=== PATIENT | male | born 1985 | race Two or more races ===

== ENCOUNTER 2024-10-10 10:53 | Emergency (ER) | payer MEDICAID, SELFPAY ==
[2024-10-10 10:55] VITALS: PULSE 98; RESP 20
[2024-10-10 10:58] VITALS: BMI 28.2
[2024-10-10 11:00] VITALS: BP 120/76; PULSE 78; RESP 18; TEMP 36.7; O2SAT 98
--- NOTE | 2024-10-10 11:44 | EDNOTE_ITS ---
ED General RME/HPI General Chief complaint: General Adult/Misc Complain Stated complaint: PAIN TO RIGHT FOOT Time Seen by Provider: 10/10/24 11:37 Arrival date/time: 10/10/24 10:53 CC: Right foot pain HPI worse since debridement beginning of the month. Patient states he was seen by his primary care provider 5 days ago but decided to come today even though the advice was on Thursday to come to the emergency room for reevaluation. Patient states he has been semicompliant with his insulin. Related Data Home Medications ?Medication ?Instructions ?Recorded ?Confirmed insulin syringe-needle U-100 0.5 09/22/24 09/22/24 mL 31 gauge x 5/16 (TRUEplus Insulin) lisinopril 5 mg tablet 5 mg PO DAILY 09/22/24 09/22/24 metformin 500 mg tablet 500 mg PO QAM 09/22/24 09/22/24 pravastatin 10 mg tablet 10 mg PO DAILY 09/22/24 09/22/24 Previous Rx's ?Medication ?Instructions ?Recorded flash glucose scanning reader #1 ea 09/24/24 (FreeStyle [place] 2 [place]) flash glucose sensor (FreeStyle #1 ea 09/24/24 Court[place] 2 Sensor kit) doxycycline hyclate 100 mg capsule 100 mg PO BID #10 caps 09/29/24 insulin glargine 100 unit/mL 65 unit (0.65 mL) SCi QDAY #10 mL 09/29/24 subcutaneous solution (Lantus U-100 Insulin) lisinopril 5 mg tablet 5 mg PO QDAY #30 tabs 09/29/24 doxycycline hyclate 100 mg capsule 100 mg PO BID #21 caps 10/10/24 Allergies Allergy/AdvReac Type Severity Reaction Status Date / Time No Known Allergies Allergy Unverified 09/25/24 14:09 Review of Systems Review of Systems Narrative Review of Systems: GEN: No fever, no chills, no weight loss EYES: No discharge, no visual changes, no pain HEENT: No ear pain, no congestion, no sore throat PULM: No shortness of breath, no cough, no congestion CV: No chest pain, no dyspnea on exertion, no palpitations GI: No nausea, no vomiting, no diarrhea, no pain, no constipation : No frequency, no urgency, no dysuria MUSC/SKEL: + joint pain, no back pain SKIN: No rash PSYCH: No hallucinations, no depression HEME/LYMPH: No easy bleeding or bruising tendencies NEURO: No weakness, no headache Past Medical History Past Medical History NEUROLOGIC: Negative Seizures CARDIAC: Positive Hypercholesterolemia and Hypertension; Negative Cardiac Disorders or Congestive Heart Failure RESPIRATORY: Negative Chronic Obstructive Pulmonary Disease (COPD) or Asthma GENITOURINARY: Negative Renal Disease ENDOCRINE: Positive Diabetes Mellitus Type 2; Negative Diabetes Mellitus Type 1 HEMATOLOGIC: Negative Sickle Cell Disease PSYCHO/SOCIAL: Positive Anxiety OTHER HISTORY: Positive Falls; Negative Hospitalization, Blood Transfusions, Blood Transfusion Reaction or Anesthesia Reactions Family History FAMILY HISTORY: Negative Family Cardiac Disorders Social History SMOKING STATUS: Never smoker ED Exam Narrative Physical exam: [General: Mild discomfort but not in any acute distress Head normocephalic HEENT: Within acceptable limits Neck is supple nontender Chest equal chest rise nontender to palpation Respiratory: Clear to auscultation no wheezes crackles or rubs CV: Rate rhythm is regular no murmurs rubs or clicks Abdomen is distended secondary to body habitus soft nontender no masses positive bowel sounds all 4 quadrants Back: No CVA tenderness no spinous process tenderness from cervical spine thoracic and lumbar spine Skin: Right foot, sole: Patient has 2 incisional moyer in the thick skin in the ball of the foot there is no open bleeding exudate was cleaned from the areas no surrounding erythema or edema. Dorsum of the foot is edematous not erythematous not warm to put cap refill in the digits is at 2 seconds. No erythema or streaking up the leg not warm to touch. Heel appears intact, no open ulcerations. Otherwise all other skin is intact no petechiae rash induration ulceration or crepitus Extremities: Moving all extremity against resistance cap refill less than 2 seconds neurosensory intact Neuro: Awake alert oriented x3 Glascow coma 15 no focal deficits] Course Course Course Narrative: Patient's case reviewed by Dr. Weiss feels there is no surgical intervention necessary the patient needs to continue with outpatient wound management. Discussed with the patient that he does not have a follow-up referral for wound management. Although the patient states he is waiting for referral . I talked to case management who will initiate follow-up with Dr. Rivera's office regarding approval for wound management. The patient will be discharged home is to follow-up with his primary care doctor and wound management. Review Dr Lares's note, the patient be discharged home on doxycycline, and does follow-up Quality Measures none Orders Category Date Time Status Dressing Care/Change NEEDED Care 10/10/24 15:31 Completed XR foot comp RT min 3V Stat Exams 10/10/24 11:49 Completed Blood Culture (Lab) Stat Lab 10/10/24 12:00 Received CBC Stat Lab 10/10/24 12:05 Completed CMP [Comprehensive Metabolic Panel] Stat Lab 10/10/24 12:05 Completed CRP [C-Reactive Protein] Stat Lab 10/10/24 12:05 Completed ESR [Sed Rate (ESR)] Stat Lab 10/10/24 12:05 Completed PT [Prothrombin Time with INR] Stat Lab 10/10/24 12:05 Completed PTT [Partial Thromboplastin Time] Stat Lab 10/10/24 12:05 Completed Insulin Regular Med 10/10/24 15:35 Discontinued 5 unit SC X1 ONE cefTRIAXone/D5w 1gm IV premix [Rocephin/D5w 1gm IV Med 10/10/24 13:20 Discontinued premix] 50 ml IV X1 Vital Signs Vital signs: Vital Signs Temperature 98.1 F 10/10/24 11:00 Pulse Rate 78 10/10/24 11:00 Respiratory Rate 18 10/10/24 11:00 Blood Pressure 120/76 10/10/24 11:00 Pulse Oximetry (%) 98 10/10/24 11:00 Oxygen Delivery Method Room Air 10/10/24 11:[address] [facility] Patient data External records reviewed:: [facility] previous records and EMS form Clinical information provided by:: patient and EMS Social determinants that could affect healthcare access:: none Patient has the following chronic illnesses:: Diabetes, right foot diabetic ulcer with surgical intervention and debridement. Hypertension hyperlipidemia How is presenting disease/condition affected by chronic disease/condition?: e xacerbated by Evaluation data The following diagnostics were reviewed and interpreted by me:: lab results, radiology exam(s) and EKG tracing(s) Lab and/or radiology exams considered but not ordered:: CBC shows no acute leukocytosis no significant anemia thrombocytopenia CMP shows glucose level of 353 no other significant electrolyte imbalances renal impairment transaminitis or T. bili elevation X-ray shows air in the foot. Interpretation Summary: Open foot wound status postsurgical debridement Medications Medications considered but not ordered:: None Medication administrations:: Medication Administration History Discontinued Medications Ceftriaxone Sodium/Dextrose (Rocephin/D5w 1gm Iv Premix) 50 mls @ 100 mls/hr IV X1 ONE Stop: 10/10/24 13:49 Last Infusion: 10/10/24 15:07 Dose: Infused Documented By: Admin: 10/10/24 14:00 Dose: 100 mls/hr Documented By: AMANDA Insulin Human Regular (Insulin Hum Regular 1 Unit/0.01 Ml (Per Unit)) 5 unit SC X1 ONE Stop: 10/10/24 15:36 Last Admin: 10/10/24 16:23 Dose: 5 unit Documented By: CARY Co-signed By: DO None Consultations Consultation(s) initiated? (list below): Yes Diagnosis Differential Diagnosis ED Complaint MDM: Foot cellulitis foot abscess gas gangrene of the foot Most likely diagnosis given after review of the tests above:: Open foot wound status post debridement. Admission Indicated Admission indicated?: not indicated Explain why admission is indicated or not indicated:: Stable for outpatient wound management follow-up Admission Request Was there a request for admission?: No Disposition Plan Disposition Plan: Discharge Discharge Attestation Discharge Attestation: The patient and all family members were given an opportunity to ask questions and understood the discharge instructions. Discharge instructions specifically effects, indications for sooner follow up or return to the emergency department, and the expected course of current diagnosis. Patient condition: Stable Medical Decision Making Differential Diagnosis Differential Diagnosis: Foot cellulitis foot abscess gas gangrene of the foot Lab Data 10/10/24 12:05 10/10/24 12:05 Labs: Lab Results 10/10/24 Range/Units 12:05 WBC 6.9 (3.8-10.6) Thou/mm3 RBC 4.86 (4.50-5.90) Miln/mm3 Hgb 13.7 (13.5-16.0) g/dL Hct 40.2 L (41.0-53.0) % MCV 83 (80-100) fL MCH 28.2 (25.0-35.0) pg MCHC 34.1 (31.0-37.0) g/dl RDW Std Deviation 37.4 (35.1-43.9) fL Plt Count 419 (140-440) Thou/mm3 Neut % (Auto) 58 (37-80) % Lymph % (Auto) 33 (10-50) % [place] % (Auto) 6 (0-12) % Eos % (Auto) 3 (0-10) % Baso % (Auto) 0 (0-2.5) % Neut # (Auto) 4.0 (1.8-7.7) Thou/mm3 Lymph # (Auto) 2.3 (1.0-4.8) Thou/mm3 [place] # (Auto) 0.4 (0.0-0.8) Thou/mm3 Eos # (Auto) 0.2 (0.0-0.5) Thou/mm3 Baso # (Auto) 0.0 (0.0-0.2) Thou/mm3 Immature Gran # (Auto) 0.01 H (0.00-0.00) Thou/mm3 Absolute Nucleated RBC 0.00 (0.00-0.00) Thou/mm3 Immature Gran % 0 (0-0) % Nucleated RBC % 0 (0) /100 WBC ESR 105 H (0-15) mm/hr PT 11.2 (9.0-12.2) Seconds INR 1.0 (0.9-1.3) APTT 26.8 (22.0-36.0) Seconds Sodium 132 L (136-145) mMol/L Potassium 4.0 (3.4-5.1) mMol/L Chloride 97 L (98-107) mMol/L Carbon Dioxide 29.5 (20.0-31.0) mMol/L Anion Gap 6 L (7-16) BUN 18 (9-23) mg/dL Creatinine 0.7 (0.6-1.3) mg/dL Estim Creat Clear Calc 180.6 (>60) mL/min eGFR > 60 (60 - ) See Note BUN/Creatinine Ratio 26 H (12-20) Ratio Glucose 353 H (74-106) mg/dL Calculated Osmolality 280 (275-295) Calcium 9.3 (8.3-10.6) mg/dL Corrected Calcium 9.3 (8.5-10.1) mg/dL Total Bilirubin 0.6 (0.3-1.2) mg/dL AST < 8 (0-34) U/L ALT < 7 L (10-49) U/L Alkaline Phosphatase 103 (46-116) U/L C-Reactive Prot, Quant 1.0 H (0.0-0.9) mg/dL Total Protein 7.9 (5.7-8.2) gm/dL Albumin 4.2 (3.5-5.0) gm/dL Globulin 3.7 H (2.3-3.5) gm/dL Albumin/Globulin Ratio 1.1 L (1.2-2.2) Discharge Plan Plan Patient Disposition: HOME (Self Care) Patient condition on transfer: Stable Prescriptions/Referrals Prescriptions/Med Rec: New doxycycline hyclate 100 mg capsule 100 mg PO BID Qty: 21 0RF No Action metformin 500 mg tablet 500 mg PO QAM Patient Comments: TAKE ONE TABLET BY MOUTH THREE TIMES DAILY WITH MEALS pravastatin 10 mg tablet 10 mg PO DAILY Patient Comments: TAKE ONE TABLET BY MOUTH AT BEDTIME lisinopril 5 mg tablet 5 mg PO DAILY Patient Comments: TAKE ONE TABLET BY MOUTH DAILY (DME) insulin syringe-needle U-100 [TRUEplus Insulin] 0.5 mL 31 gauge x 5/16 syringe Patient Comments: USE 1 SYRINGE UP TO FOUR TIMES DAILY NEEDED FOR GLUCOSE MANAGEMENT (DME) FreeStyle [place] 2 [place] Misc See Rx Instructions .Route Qty: 1 0RF Rx Instructions: As directed (DME) FreeStyle [place] 2 Sensor Kit See Rx Instructions .Route Qty: 1 0RF Rx Instructions: As directed doxycycline hyclate 100 mg capsule 100 mg PO BID Qty: 10 0RF insulin glargine [Lantus U-100 Insulin] 100 unit/mL Solution 65 unit SCi QDAY Qty: 10 4RF lisinopril 5 mg tablet 5 mg PO QDAY Qty: 30 1RF Referrals: Dottie Styles FNP [Primary Care Provider] - In 1 week Problem List Clinical Impression: Open wound of right foot Patient/Caregiver Discharge Instructions Education Materials: What Are Pressure Injuries of the Foot Additional Instructions: Take the medications as prescribed call Dr. Rivera's office for getting an appointment time for wound management. If there is a worsening of symptoms include fever redness in the foot or ankle return the emergency room for reevaluation. Print Language: Polish Stand Alone Forms: Wendy Award Info., Work/School Release, Patient Portal Info Letter Attestation Attestation The patient was seen by the midlevel practitioner. I, the co-signing physician, was present during the entire ER visit. While I did not physically examine the patient, I was available for consultation as needed.
--- NOTE | 2024-10-10 11:49 | XR_ITS ---
Examination: Foot, right, 3 views Technique: AP, oblique, lateral views foot, 3 views Date and time of exam: October 10, 2024 1228 hours INDICATIONS: Nonhealing foot ulcer this week, diabetic FINDINGS: Soft tissue infection centered about the fourth metatarsophalangeal joint with soft tissue swelling and air densities Destruction involving the distal fourth metatarsal as well as the middle phalanx fourth digit and base of the proximal phalanx fourth digit No fracture IMPRESSION: Osteomyelitis distal fourth metatarsal, proximal and middle phalanges fourth digits Consider MRI foot without contrast follow-up
[2024-10-10 12:45] LABS: Basophils % (Auto) 0 % (0-2.5); Eosinophils # (Auto) 0.2 Thou/mm3 (0.0-0.5); Eosinophils % (Auto) 3 % (0-10); Hematocrit 40.2 % (41.0-53.0); Hemoglobin 13.7 g/dL (13.5-16.0); Immature Granulocytes % (Auto) 0 % (0-0); Immature Granulocytes Auto 0.01 Thou/mm3 (0.00-0.00); Lymphocytes # (Auto) 2.3 Thou/mm3 (1.0-4.8); Lymphocytes % (Auto) 33 % (10-50); Mean Corpuscular HGB Conc 34.1 g/dl (31.0-37.0); Mean Corpuscular Hemoglobin 28.2 pg (25.0-35.0); Mean Corpuscular Volume 83 fL (80-100); Monocytes # (Auto) 0.4 Thou/mm3 (0.0-0.8); Monocytes % (Auto) 6 % (0-12); Neutrophils % (Auto) 58 % (37-80); Nucleated Red Blood Cell % 0 /100 WBC (0); Platelet Count 419 Thou/mm3 (140-440); RDW Standard Deviation 37.4 fL (35.1-43.9); Red Blood Count 4.86 Miln/mm3 (4.50-5.90); White Blood Count 6.9 Thou/mm3 (3.8-10.6)
[2024-10-10 12:56] LABS: Sed Rate (ESR) 105 mm/hr (0-15)
[2024-10-10 13:02] LABS: Partial Thromboplastin Time 26.8 Seconds (22.0-36.0); Prothrombin Time 11.2 Seconds (9.0-12.2)
[2024-10-10 13:23] LABS: Alanine Aminotransferase < 7 U/L (10-49); Albumin, Serum 4.2 gm/dL (3.5-5.0); Albumin/Globulin Ratio 1.1 (1.2-2.2); Alkaline Phosphatase 103 U/L (46-116); Anion Gap 6 (7-16); Aspartate Amino Transferase < 8 U/L (0-34); BUN/Creatinine Ratio 26 Ratio (12-20); Bilirubin,Total 0.6 mg/dL (0.3-1.2); Blood Urea Nitrogen 18 mg/dL (9-23); Calcium 9.3 mg/dL (8.3-10.6); Calcium (Corrected) 9.3 mg/dL (8.5-10.1); Carbon Dioxide 29.5 mMol/L (20.0-31.0); Chloride 97 mMol/L (98-107); Creatinine (Component) 0.7 mg/dL (0.6-1.3); Estimated Creatinine Clearance 180.6 mL/min (>60); Globulin 3.7 gm/dL (2.3-3.5); Glucose 353 mg/dL (74-106); Osmolality,Calculated 280 (275-295); Sodium 132 mMol/L (136-145); Total Protein 7.9 gm/dL (5.7-8.2); eGFR > 60 See Note
[2024-10-10] MEDS: cefTRIAXone/D5w 1gm IV premix 50 ML IV (14:00)
--- NOTE | 2024-10-10 15:36 | PC.CC ---
[facility] was consulted regarding a referral to the wound clinic for the patient. ASW made face to face contact with the patient and confirmed information on demographics. ASW sent referral to the wound clinic. They will be calling the patient to schedule the appointment to the clinic.
[2024-10-10] MEDS: INSULIN HUM REGULAR 1 UNIT/0.01 ML (PER UNIT) 5 UNIT SC (16:23)
== END 2024-10-10 16:55 | disposition home or self-care (01) ==
PROVIDERS: Registered Nurse General Practice; Emergency Provider Emergency Medicine; PCP Nurse Practitioner Family
DX: E11.621 Type 2 diabetes mellitus with foot ulcer (principal); L97.519 Non-pressure chronic ulcer of other part of right foot with unspecified severity; Z79.84 Long term (current) use of oral hypoglycemic drugs; Z79.4 Long term (current) use of insulin
CPT/HCPCS: 36415; 73630; 80053; 85025; 85610; 85652; 85730; 86140; 87040; 96365; 96372; 99284; J0696; J1815

== ENCOUNTER 2024-10-16 14:51 | Emergency (ER) | payer MEDICAID, SELFPAY ==
[2024-10-16 15:32] VITALS: BP 105/74; PULSE 115; RESP 19; TEMP 37.4; O2SAT 99; BMI 28.2
--- NOTE | 2024-10-16 16:24 | EDNOTE_ITS ---
ED General RME/HPI General Chief complaint: Ankle/Foot Injury Stated complaint: R FOOT INFECTION Time Seen by Provider: 10/16/24 16:23 Arrival date/time: 10/16/24 14:51 CC: Right foot pain HPI the patient fell on it last night now has some pain and bleeding. Patient is known to me for the last visit patient has osteomyelitis chronic wound and ulcers on the right foot and has inform me that he actually has follow-up in 3 days for his chronic foot issues. The patient is known diabetic with poor glycemic control. Patient currently has no active bleeding to the foot. Localized pain is 3-4 on a 10 scale. Patient is well-known to me from a prior visit he is already on antibiotics for an open wound to the bottom of the foot with air in the foot, this was discussed at length and we made outpatient arrangements for him for follow-up appointment as stated above. Related Data Home Medications ?Medication ?Instructions ?Recorded ?Confirmed insulin syringe-needle U-100 0.5 09/22/24 09/22/24 mL 31 gauge x 5/16 (TRUEplus Insulin) lisinopril 5 mg tablet 5 mg PO DAILY 09/22/24 09/22/24 metformin 500 mg tablet 500 mg PO QAM 09/22/24 09/22/24 pravastatin 10 mg tablet 10 mg PO DAILY 09/22/24 09/22/24 Previous Rx's ?Medication ?Instructions ?Recorded flash glucose scanning reader #1 ea 09/24/24 (FreeStyle [place]ney 2 [place]) flash glucose sensor (FreeStyle #1 ea 09/24/24 Courtney 2 Sensor kit) doxycycline hyclate 100 mg capsule 100 mg PO BID #10 caps 09/29/24 insulin glargine 100 unit/mL 65 unit (0.65 mL) SCi QDAY #10 mL 09/29/24 subcutaneous solution (Lantus U-100 Insulin) lisinopril 5 mg tablet 5 mg PO QDAY #30 tabs 09/29/24 doxycycline hyclate 100 mg capsule 100 mg PO BID #21 caps 10/10/24 Allergies Allergy/AdvReac Type Severity Reaction Status Date / Time No Known Allergies Allergy Unverified 10/16/24 14:52 Review of Systems Review of Systems Narrative Review of Systems: GEN: No fever, no chills, no weight loss EYES: No discharge, no visual changes, no pain HEENT: No ear pain, no congestion, no sore throat PULM: No shortness of breath, no cough, no congestion CV: No chest pain, no dyspnea on exertion, no palpitations GI: No nausea, no vomiting, no diarrhea, no pain, no constipation : No frequency, no urgency, no dysuria MUSC/SKEL: No joint pain, no back pain, + foot pain SKIN: No rash PSYCH: No hallucinations, no depression HEME/LYMPH: No easy bleeding or bruising tendencies NEURO: No weakness, no headache ED Exam Narrative Physical exam: [General: acute distress Head normocephalic HEENT: Within acceptable limits Neck is supple nontender Chest equal chest rise nontender to palpation Respiratory: Clear to auscultation no wheezes crackles or rubs CV: Rate rhythm is regular no murmurs rubs or clicks Abdomen is distended secondary to body habitus soft nontender no masses positive bowel sounds all 4 quadrants Back: No CVA tenderness no spinous process tenderness from cervical spine thoracic and lumbar spine Skin: Open ulcerations to the right foot chronic in nature. Intact no petechiae rash induration ulceration or crepitus Extremities: Decreased range of motion of the right foot secondary to localized pain. Moving all other extremities against resistance cap refill less than 2 seconds neurosensory intact Neuro: Awake alert oriented x3 Glascow coma 15 no focal deficits] Course Quality Measures none Orders Category Date Time Status XR foot comp RT min 3V Stat Exams 10/16/24 16:25 Completed Vital Signs Vital signs: Vital Signs Temperature 99.3 F 10/16/24 15:32 Pulse Rate 115 H 10/16/24 15:32 Respiratory Rate 19 10/16/24 15:32 Blood Pressure 105/74 10/16/24 15:32 Pulse Oximetry (%) 99 10/16/24 15:32 Oxygen Delivery Method Room Air 10/16/24 15:32 [facility] Patient data External records reviewed:: [facility] previous records Clinical information provided by:: patient Social determinants that could affect healthcare access:: none Patient has the following chronic illnesses:: Diabetes hypertension chronic foot ulcer How is presenting disease/condition affected by chronic disease/condition?: uneffected by Evaluation data The following diagnostics were reviewed and interpreted by me:: radiology exam(s) Lab and/or radiology exams considered but not ordered:: X-ray of the foot is interpreted by me read by radiology shows no acute finding chronic osteomyelitis no new fractures. Interpretation Summary: Chronic osteoarthritis Medications Medications considered but not ordered:: None Medication administrations:: None Consultations Consultation(s) initiated? (list below): No Diagnosis Differential Diagnosis ED Complaint MDM: New foot fracture, sprain or strain Most likely diagnosis given after review of the tests above:: Foot pain chronic osteomyelitis Admission Indicated Admission indicated?: not indicated Explain why admission is indicated or not indicated:: Stable for outpatient follow-up Admission Request Was there a request for admission?: No Disposition Plan Disposition Plan: Discharge Discharge Attestation Discharge Attestation: The patient and all family members were given an opportunity to ask questions and understood the discharge instructions. Discharge instructions specifically effects, indications for sooner follow up or return to the emergency department, and the expected course of current diagnosis. Patient condition: Stable Medical Decision Making Differential Diagnosis Differential Diagnosis: New foot fracture, sprain or strain Discharge Plan Plan Patient Disposition: HOME (Self Care) Patient condition on transfer: Stable Prescriptions/Referrals Prescriptions/Med Rec: No Action metformin 500 mg tablet 500 mg PO QAM Patient Comments: TAKE ONE TABLET BY MOUTH THREE TIMES DAILY WITH MEALS pravastatin 10 mg tablet 10 mg PO DAILY Patient Comments: TAKE ONE TABLET BY MOUTH AT BEDTIME lisinopril 5 mg tablet 5 mg PO DAILY Patient Comments: TAKE ONE TABLET BY MOUTH DAILY (DME) insulin syringe-needle U-100 [TRUEplus Insulin] 0.5 mL 31 gauge x 5/16 syringe Patient Comments: USE 1 SYRINGE UP TO FOUR TIMES DAILY NEEDED FOR GLUCOSE MANAGEMENT (DME) FreeStyle [place] 2 [place] Misc See Rx Instructions .Route Qty: 1 0RF Rx Instructions: As directed (DME) FreeStyle [place] 2 Sensor Kit See Rx Instructions .Route Qty: 1 0RF Rx Instructions: As directed doxycycline hyclate 100 mg capsule 100 mg PO BID Qty: 21 0RF doxycycline hyclate 100 mg capsule 100 mg PO BID Qty: 10 0RF insulin glargine [Lantus U-100 Insulin] 100 unit/mL Solution 65 unit SCi QDAY Qty: 10 4RF lisinopril 5 mg tablet 5 mg PO QDAY Qty: 30 1RF Referrals: Domingo Rivera MD [Primary Care Provider] - In 1 week Problem List Clinical Impression: Foot pain, Foot osteomyelitis, right Patient/Caregiver Discharge Instructions Other Activity Instructions:: Continue on the antibiotics make sure you follow- up with your appointment on Thursday for your foot if there is a worsening of symptoms return the emergency room for reevaluation. Education Materials: Osteomyelitis Dc, Self-Care for Strains and Sprains Print Language: [place] Stand Alone Forms: Wendy Award Info., Patient Portal Info Letter, Work/School Release PA/BIRD KEEPER Supervising Physician PA/BIRD KEEPER Supervising Physician: Don Ferguson ENP
--- NOTE | 2024-10-16 16:25 | XR_ITS ---
Examination: Foot, right, 3 views Technique: AP, oblique, lateral views foot, 3 views Date and time of exam: October 16, 2024 1635 hrs. Indications: Redness swelling and pain involving the foot this week, diabetic Findings: Soft tissue infection surrounding the fourth and fifth digits and distal metatarsals Cortical bone destruction distal fifth and fourth metatarsals No fracture No opaque foreign body Impression: Soft tissue infection centered about the fourth and fifth digits Osteomyelitis distal fourth and fifth metatarsals, consider repeat MRI foot follow-up
--- NOTE | 2024-10-16 18:58 | PC.NURSE ---
Report recieced from day RN,
[2024-10-16 20:52] VITALS: BP 105/74; PULSE 99; RESP 18; TEMP 37.3; O2SAT 99
== END 2024-10-16 19:40 | disposition home or self-care (01) ==
PROVIDERS: Emergency Provider Emergency Medicine; PCP Family Medicine
DX: M86.8X7 Other osteomyelitis, ankle and foot (principal)
CPT/HCPCS: 73630; 99283

== ENCOUNTER → 2024-10-19 | Outpatient (CLI) | payer MEDICAID, SELFPAY | END | disposition home or self-care (01) | PROVIDERS: PCP Nurse Practitioner Family; Referring Provider Nurse Practitioner Family; Visit Provider Student in an Organized Health Care Education/Training Program | DX: E11.621 Type 2 diabetes mellitus with foot ulcer (principal); L97.418 Non-pressure chronic ulcer of right heel and midfoot with other specified severity; L97.415 Non-pressure chronic ulcer of right heel and midfoot with muscle involvement without evidence of necrosis; M19.071 Primary osteoarthritis, right ankle and foot; J45.909 Unspecified asthma, uncomplicated; E11.40 Type 2 diabetes mellitus with diabetic neuropathy, unspecified; Z79.4 Long term (current) use of insulin; Z79.84 Long term (current) use of oral hypoglycemic drugs | CPT/HCPCS: 97597; 99213; A9270; G0463 ==

== ENCOUNTER → 2024-10-26 | Outpatient (CLI) | payer MEDICAID, SELFPAY | END | disposition home or self-care (01) | LOC: SWHD 09:43 | PROVIDERS: PCP Nurse Practitioner Family; Referring Provider Nurse Practitioner Family; Visit Provider Surgery | DX: E11.621 Type 2 diabetes mellitus with foot ulcer (principal); L97.411 Non-pressure chronic ulcer of right heel and midfoot limited to breakdown of skin; L97.412 Non-pressure chronic ulcer of right heel and midfoot with fat layer exposed; M19.071 Primary osteoarthritis, right ankle and foot; J45.909 Unspecified asthma, uncomplicated; E11.40 Type 2 diabetes mellitus with diabetic neuropathy, unspecified; Z79.4 Long term (current) use of insulin; Z79.84 Long term (current) use of oral hypoglycemic drugs | CPT/HCPCS: 11042; 97597; A9270 ==

== ENCOUNTER → 2024-10-28 | Outpatient (CLI) | payer MEDICAID, SELFPAY | END | disposition home or self-care (01) | LOC: SWHD 14:30 | PROVIDERS: PCP Nurse Practitioner Family; Referring Provider Nurse Practitioner Family; Visit Provider Surgery | DX: L97.411 Non-pressure chronic ulcer of right heel and midfoot limited to breakdown of skin (principal); L97.412 Non-pressure chronic ulcer of right heel and midfoot with fat layer exposed; S91.301A Unspecified open wound, right foot, initial encounter; X58.XXXA Exposure to other specified factors, initial encounter; L02.611 Cutaneous abscess of right foot; M19.071 Primary osteoarthritis, right ankle and foot; J45.909 Unspecified asthma, uncomplicated; E11.40 Type 2 diabetes mellitus with diabetic neuropathy, unspecified; Z79.4 Long term (current) use of insulin; Z79.84 Long term (current) use of oral hypoglycemic drugs | CPT/HCPCS: 10060; A9270 ==

== ENCOUNTER → 2024-11-04 | Outpatient (CLI) | payer MEDICAID, SELFPAY | END | disposition home or self-care (01) | PROVIDERS: PCP Nurse Practitioner Family; Referring Provider Nurse Practitioner Family; Visit Provider Surgery | DX: L97.412 Non-pressure chronic ulcer of right heel and midfoot with fat layer exposed (principal); S91.301A Unspecified open wound, right foot, initial encounter; X58.XXXA Exposure to other specified factors, initial encounter; L02.611 Cutaneous abscess of right foot; M19.071 Primary osteoarthritis, right ankle and foot; J45.909 Unspecified asthma, uncomplicated; E11.40 Type 2 diabetes mellitus with diabetic neuropathy, unspecified; Z79.4 Long term (current) use of insulin; Z79.84 Long term (current) use of oral hypoglycemic drugs | CPT/HCPCS: 11042; A9270 ==

== ENCOUNTER → 2024-11-09 | Outpatient (CLI) | payer MEDICAID, SELFPAY | END | disposition home or self-care (01) | LOC: SWHD 09:14 | PROVIDERS: PCP Nurse Practitioner Family; Referring Provider Nurse Practitioner Family; Visit Provider Student in an Organized Health Care Education/Training Program | DX: S91.301A Unspecified open wound, right foot, initial encounter (principal); X58.XXXA Exposure to other specified factors, initial encounter; L02.611 Cutaneous abscess of right foot; M19.071 Primary osteoarthritis, right ankle and foot; J45.909 Unspecified asthma, uncomplicated; E11.40 Type 2 diabetes mellitus with diabetic neuropathy, unspecified; Z79.4 Long term (current) use of insulin; Z79.84 Long term (current) use of oral hypoglycemic drugs | CPT/HCPCS: 97597; 17250; A9270 ==

== ENCOUNTER → 2024-11-24 | Outpatient (CLI) | payer MEDICAID, SELFPAY | END | disposition home or self-care (01) | LOC: SWHD 14:47 | PROVIDERS: PCP Nurse Practitioner Family; Referring Provider Nurse Practitioner Family; Visit Provider Student in an Organized Health Care Education/Training Program | DX: S91.301A Unspecified open wound, right foot, initial encounter (principal); X58.XXXA Exposure to other specified factors, initial encounter; L02.611 Cutaneous abscess of right foot; L97.422 Non-pressure chronic ulcer of left heel and midfoot with fat layer exposed; L97.412 Non-pressure chronic ulcer of right heel and midfoot with fat layer exposed; L97.512 Non-pressure chronic ulcer of other part of right foot with fat layer exposed; M19.071 Primary osteoarthritis, right ankle and foot; J45.909 Unspecified asthma, uncomplicated; E11.40 Type 2 diabetes mellitus with diabetic neuropathy, unspecified; Z79.4 Long term (current) use of insulin; Z79.84 Long term (current) use of oral hypoglycemic drugs | CPT/HCPCS: 99214; A9270; G0463 ==

== ENCOUNTER → 2024-12-15 | Outpatient (CLI) | payer MEDICAID, SELFPAY | END | disposition home or self-care (01) | LOC: SWHD 14:47 | PROVIDERS: PCP Nurse Practitioner Family; Referring Provider Nurse Practitioner Family; Visit Provider Student in an Organized Health Care Education/Training Program | DX: E11.621 Type 2 diabetes mellitus with foot ulcer (principal); S91.301A Unspecified open wound, right foot, initial encounter; X58.XXXA Exposure to other specified factors, initial encounter; L02.611 Cutaneous abscess of right foot; L97.421 Non-pressure chronic ulcer of left heel and midfoot limited to breakdown of skin; L97.412 Non-pressure chronic ulcer of right heel and midfoot with fat layer exposed; L97.512 Non-pressure chronic ulcer of other part of right foot with fat layer exposed; M19.071 Primary osteoarthritis, right ankle and foot; J45.909 Unspecified asthma, uncomplicated; E11.40 Type 2 diabetes mellitus with diabetic neuropathy, unspecified; Z79.4 Long term (current) use of insulin; Z79.84 Long term (current) use of oral hypoglycemic drugs | CPT/HCPCS: 97597; A9270 ==

== ENCOUNTER → 2024-12-22 | Outpatient (CLI) | payer MEDICAID, SELFPAY | END | disposition home or self-care (01) | PROVIDERS: PCP Nurse Practitioner Family; Referring Provider Nurse Practitioner Family; Visit Provider Student in an Organized Health Care Education/Training Program | DX: E11.621 Type 2 diabetes mellitus with foot ulcer (principal); S91.301A Unspecified open wound, right foot, initial encounter; X58.XXXA Exposure to other specified factors, initial encounter; L02.611 Cutaneous abscess of right foot; L97.412 Non-pressure chronic ulcer of right heel and midfoot with fat layer exposed; L97.512 Non-pressure chronic ulcer of other part of right foot with fat layer exposed; M19.071 Primary osteoarthritis, right ankle and foot; J45.909 Unspecified asthma, uncomplicated; E11.40 Type 2 diabetes mellitus with diabetic neuropathy, unspecified; Z79.4 Long term (current) use of insulin; Z79.84 Long term (current) use of oral hypoglycemic drugs | CPT/HCPCS: 97597 ==

== ENCOUNTER → 2025-02-27 | Outpatient (CLI) | payer MEDICAID, SELFPAY | END | disposition home or self-care (01) | LOC: SWHD 08:24 | PROVIDERS: Visit Provider Student in an Organized Health Care Education/Training Program | DX: E11.621 Type 2 diabetes mellitus with foot ulcer (principal); L97.412 Non-pressure chronic ulcer of right heel and midfoot with fat layer exposed; E11.40 Type 2 diabetes mellitus with diabetic neuropathy, unspecified; Z79.4 Long term (current) use of insulin; Z79.84 Long term (current) use of oral hypoglycemic drugs; J45.909 Unspecified asthma, uncomplicated; I10 Essential (primary) hypertension; F41.9 Anxiety disorder, unspecified | CPT/HCPCS: 97597; 11042; 99213; A9270; G0463 ==

== ENCOUNTER → 2025-03-06 | Outpatient (CLI) | payer MEDICAID, SELFPAY | END | disposition home or self-care (01) | LOC: SWHD 09:19 | PROVIDERS: PCP Family Medicine; Referring Provider Family Medicine; Visit Provider Student in an Organized Health Care Education/Training Program | DX: E11.621 Type 2 diabetes mellitus with foot ulcer (principal); L97.412 Non-pressure chronic ulcer of right heel and midfoot with fat layer exposed; E11.40 Type 2 diabetes mellitus with diabetic neuropathy, unspecified; Z79.4 Long term (current) use of insulin; Z79.84 Long term (current) use of oral hypoglycemic drugs; J45.909 Unspecified asthma, uncomplicated; I10 Essential (primary) hypertension; F41.9 Anxiety disorder, unspecified | CPT/HCPCS: 11042; A9270 ==

== ENCOUNTER → 2025-03-13 | Outpatient (CLI) | payer MEDICAID, SELFPAY | END | disposition home or self-care (01) | LOC: SWHD 10:13 | PROVIDERS: PCP Family Medicine; Referring Provider Family Medicine; Visit Provider Surgery | DX: E11.621 Type 2 diabetes mellitus with foot ulcer (principal); L97.412 Non-pressure chronic ulcer of right heel and midfoot with fat layer exposed; E11.40 Type 2 diabetes mellitus with diabetic neuropathy, unspecified; Z79.4 Long term (current) use of insulin; Z79.84 Long term (current) use of oral hypoglycemic drugs; J45.909 Unspecified asthma, uncomplicated; I10 Essential (primary) hypertension; F41.9 Anxiety disorder, unspecified | CPT/HCPCS: 11042; A9270 ==

== ENCOUNTER → 2025-03-21 | Outpatient (CLI) | payer MEDICAID, SELFPAY | END | disposition home or self-care (01) | LOC: SWHD 10:22 | PROVIDERS: PCP Family Medicine; Referring Provider Family Medicine; Visit Provider Student in an Organized Health Care Education/Training Program | DX: E11.621 Type 2 diabetes mellitus with foot ulcer (principal); L97.412 Non-pressure chronic ulcer of right heel and midfoot with fat layer exposed; E11.40 Type 2 diabetes mellitus with diabetic neuropathy, unspecified; Z79.4 Long term (current) use of insulin; Z79.84 Long term (current) use of oral hypoglycemic drugs; J45.909 Unspecified asthma, uncomplicated; I10 Essential (primary) hypertension; F41.9 Anxiety disorder, unspecified | CPT/HCPCS: 11042; A9270 ==

== ENCOUNTER → 2025-04-04 | Outpatient (CLI) | payer MEDICAID, SELFPAY | END | disposition home or self-care (01) | LOC: SWHD 12:55 | PROVIDERS: PCP Family Medicine; Referring Provider Family Medicine; Visit Provider Student in an Organized Health Care Education/Training Program | DX: E11.621 Type 2 diabetes mellitus with foot ulcer (principal); L97.412 Non-pressure chronic ulcer of right heel and midfoot with fat layer exposed; E11.40 Type 2 diabetes mellitus with diabetic neuropathy, unspecified; Z79.4 Long term (current) use of insulin; Z79.84 Long term (current) use of oral hypoglycemic drugs; J45.909 Unspecified asthma, uncomplicated; I10 Essential (primary) hypertension; F41.9 Anxiety disorder, unspecified | CPT/HCPCS: 11042; A9270 ==

== ENCOUNTER → 2025-04-11 | Outpatient (CLI) | payer MEDICAID, SELFPAY | END | disposition home or self-care (01) | LOC: SWHD 12:54 | PROVIDERS: PCP Family Medicine; Referring Provider Family Medicine; Visit Provider Student in an Organized Health Care Education/Training Program | DX: E11.621 Type 2 diabetes mellitus with foot ulcer (principal); L97.411 Non-pressure chronic ulcer of right heel and midfoot limited to breakdown of skin; Z79.4 Long term (current) use of insulin; Z79.84 Long term (current) use of oral hypoglycemic drugs; J45.909 Unspecified asthma, uncomplicated; I10 Essential (primary) hypertension; F41.9 Anxiety disorder, unspecified | CPT/HCPCS: 97597; A9270 ==

== ENCOUNTER → 2025-04-13 | Outpatient (CLI) | payer MEDICAID, SELFPAY | END | disposition home or self-care (01) | LOC: SWHD 09:06 | PROVIDERS: PCP Family Medicine; Referring Provider Family Medicine; Visit Provider Student in an Organized Health Care Education/Training Program | DX: E11.621 Type 2 diabetes mellitus with foot ulcer (principal); L97.412 Non-pressure chronic ulcer of right heel and midfoot with fat layer exposed; E11.40 Type 2 diabetes mellitus with diabetic neuropathy, unspecified; Z79.4 Long term (current) use of insulin; Z79.84 Long term (current) use of oral hypoglycemic drugs; J45.909 Unspecified asthma, uncomplicated; I10 Essential (primary) hypertension; F41.9 Anxiety disorder, unspecified | CPT/HCPCS: 11042; A9270 ==

== ENCOUNTER → 2025-04-18 | Outpatient (CLI) | payer MEDICAID, SELFPAY | END | disposition home or self-care (01) | LOC: SWHD 13:40 | PROVIDERS: PCP Family Medicine; Referring Provider Family Medicine; Visit Provider Student in an Organized Health Care Education/Training Program | DX: E11.621 Type 2 diabetes mellitus with foot ulcer (principal); L97.411 Non-pressure chronic ulcer of right heel and midfoot limited to breakdown of skin; Z79.84 Long term (current) use of oral hypoglycemic drugs; Z79.4 Long term (current) use of insulin; J45.909 Unspecified asthma, uncomplicated; I10 Essential (primary) hypertension; F41.9 Anxiety disorder, unspecified | CPT/HCPCS: 97597; A9270 ==

== ENCOUNTER → 2025-05-02 | Outpatient (CLI) | payer MEDICAID, SELFPAY | END | disposition home or self-care (01) | LOC: SWHD 14:36 | PROVIDERS: PCP Family Medicine; Referring Provider Family Medicine; Visit Provider Student in an Organized Health Care Education/Training Program | DX: E11.621 Type 2 diabetes mellitus with foot ulcer (principal); L97.411 Non-pressure chronic ulcer of right heel and midfoot limited to breakdown of skin; E11.40 Type 2 diabetes mellitus with diabetic neuropathy, unspecified; Z79.84 Long term (current) use of oral hypoglycemic drugs; Z79.4 Long term (current) use of insulin; J45.909 Unspecified asthma, uncomplicated; I10 Essential (primary) hypertension; F41.9 Anxiety disorder, unspecified | CPT/HCPCS: 99213; G0463 ==

== ENCOUNTER → 2025-05-16 | Outpatient (CLI) | payer MEDICAID, SELFPAY | END | disposition home or self-care (01) | LOC: SWHD 11:10 | PROVIDERS: PCP Family Medicine; Referring Provider Family Medicine; Visit Provider Student in an Organized Health Care Education/Training Program | DX: E11.621 Type 2 diabetes mellitus with foot ulcer (principal); L97.411 Non-pressure chronic ulcer of right heel and midfoot limited to breakdown of skin; Z79.84 Long term (current) use of oral hypoglycemic drugs; Z79.4 Long term (current) use of insulin; J45.909 Unspecified asthma, uncomplicated; I10 Essential (primary) hypertension; F41.9 Anxiety disorder, unspecified | CPT/HCPCS: 99212; G0463 ==

== ENCOUNTER → 2025-06-13 | Outpatient (CLI) | payer MEDICAID, SELFPAY | END | disposition home or self-care (01) | LOC: SWHD 12:50 | PROVIDERS: PCP Family Medicine; Referring Provider Family Medicine; Visit Provider Student in an Organized Health Care Education/Training Program | DX: E11.621 Type 2 diabetes mellitus with foot ulcer (principal); L97.412 Non-pressure chronic ulcer of right heel and midfoot with fat layer exposed; Z79.4 Long term (current) use of insulin; J45.909 Unspecified asthma, uncomplicated; F41.9 Anxiety disorder, unspecified; Z79.84 Long term (current) use of oral hypoglycemic drugs | CPT/HCPCS: 97597; A9270 ==

== ENCOUNTER → 2025-07-25 | Outpatient (CLI) | payer MEDICAID, SELFPAY | END | disposition home or self-care (01) | PROVIDERS: PCP Family Medicine; Referring Provider Family Medicine; Visit Provider Student in an Organized Health Care Education/Training Program | DX: E11.621 Type 2 diabetes mellitus with foot ulcer (principal); L97.412 Non-pressure chronic ulcer of right heel and midfoot with fat layer exposed; Z79.4 Long term (current) use of insulin; J45.909 Unspecified asthma, uncomplicated; Z79.84 Long term (current) use of oral hypoglycemic drugs; F41.9 Anxiety disorder, unspecified | CPT/HCPCS: 97597; A9270 ==

== ENCOUNTER → 2025-08-17 | Outpatient (CLI) | payer MEDICAID, SELFPAY | END | disposition home or self-care (01) | LOC: SWHD 09:26 | PROVIDERS: PCP Family Medicine; Referring Provider Family Medicine; Visit Provider Student in an Organized Health Care Education/Training Program | DX: E11.621 Type 2 diabetes mellitus with foot ulcer (principal); L97.412 Non-pressure chronic ulcer of right heel and midfoot with fat layer exposed; Z79.4 Long term (current) use of insulin; J45.909 Unspecified asthma, uncomplicated; Z79.84 Long term (current) use of oral hypoglycemic drugs; F41.9 Anxiety disorder, unspecified | CPT/HCPCS: 97597; A9270 ==

== ENCOUNTER → 2025-08-24 | Outpatient (CLI) | payer MEDICAID, SELFPAY | END | disposition home or self-care (01) | LOC: SWHD 11:03 | PROVIDERS: PCP Family Medicine; Referring Provider Family Medicine; Visit Provider Student in an Organized Health Care Education/Training Program | DX: E11.621 Type 2 diabetes mellitus with foot ulcer (principal); L97.412 Non-pressure chronic ulcer of right heel and midfoot with fat layer exposed; J45.909 Unspecified asthma, uncomplicated; Z79.84 Long term (current) use of oral hypoglycemic drugs; Z79.4 Long term (current) use of insulin; F41.9 Anxiety disorder, unspecified | CPT/HCPCS: 97597; A9270 ==

== ENCOUNTER → 2025-09-07 | Outpatient (CLI) | payer MEDICAID, SELFPAY | END | disposition home or self-care (01) | LOC: SWHD 10:13 | PROVIDERS: PCP Family Medicine; Referring Provider Family Medicine; Visit Provider Student in an Organized Health Care Education/Training Program | DX: E11.621 Type 2 diabetes mellitus with foot ulcer (principal); L97.412 Non-pressure chronic ulcer of right heel and midfoot with fat layer exposed; J45.909 Unspecified asthma, uncomplicated; Z79.84 Long term (current) use of oral hypoglycemic drugs; F41.9 Anxiety disorder, unspecified | CPT/HCPCS: 97597; A9270 ==

== ENCOUNTER 2025-09-14 20:35 | Emergency (ER) | payer MEDICAID, SELFPAY ==
[2025-09-14 20:41] VITALS: BMI 30.7
[2025-09-14 20:42] VITALS: BP 102/64; PULSE 110; RESP 18; TEMP 37.2; O2SAT 98
--- NOTE | 2025-09-14 21:18 | PD.EDLOWEX ---
Lower Extremity Injury RME/HPI General Chief Complaint: Extremity Injury, Lower Stated Complaint: FOOT PAIN/HYPERGLYCEMIA Time Seen by Provider: 09/14/25 21:18 Arrival date/time: 09/14/25 20:35 RME / HPI RME / HPI Narrative: Dr. Pritchard?s Main ED Evaluation: 40yo male with a history of DM, HTN, HLD BIBA from home presents to the ED for left foot redness and swelling x today. Patient had an I&D done yesterday at the wound clinic, but was not prescribed antibiotics. Patient notes he's been sick for the last one week with nausea and vomiting. He has been unable to keep anything down, reporting his blood sugar has also been high (was 519 2 hours FUR DRUMMER). Patient denies any fever, chills, or any other associated symptoms. Denies any illicit drug use. NKA. Related Data Home Medications ?Medication ?Instructions ?Recorded ?Confirmed insulin syringe-needle U-100 0.5 09/22/24 09/22/24 mL 31 gauge x 5/16 (TRUEplus Insulin) lisinopril 5 mg tablet 5 mg PO DAILY 09/22/24 09/22/24 metformin 500 mg tablet 500 mg PO QAM 09/22/24 09/22/24 pravastatin 10 mg tablet 10 mg PO DAILY 09/22/24 09/22/24 Previous Rx's ?Medication ?Instructions ?Recorded flash glucose scanning reader #1 ea 09/24/24 (FreeStyle Courtney 2 [place]) flash glucose sensor (FreeStyle #1 ea 09/24/24 Courtney 2 Sensor kit) doxycycline hyclate 100 mg capsule 100 mg PO BID #10 caps 09/29/24 insulin glargine 100 unit/mL 65 unit (0.65 mL) SCi QDAY #10 mL 09/29/24 subcutaneous solution (Lantus U-100 Insulin) lisinopril 5 mg tablet 5 mg PO QDAY #30 tabs 09/29/24 doxycycline hyclate 100 mg capsule 100 mg PO BID #21 caps 10/10/24 Allergies Allergy/AdvReac Type Severity Reaction Status Date / Time No Known Allergies Allergy Unverified 10/16/24 14:52 Review of Systems Review of Systems Systems Reviewed: All systems reviewed, normal except as documented Past Medical History Past Medical History NEUROLOGIC: Negative Seizures CARDIAC: Positive Hypercholesterolemia and Hypertension; Negative Cardiac Disorders or Congestive Heart Failure RESPIRATORY: Negative Chronic Obstructive Pulmonary Disease (COPD) or Asthma GENITOURINARY: Negative Renal Disease ENDOCRINE: Positive Diabetes Mellitus Type 2; Negative Diabetes Mellitus Type 1 HEMATOLOGIC: Negative Sickle Cell Disease PSYCHO/SOCIAL: Positive Anxiety OTHER HISTORY: Positive Falls; Negative Hospitalization, Blood Transfusions, Blood Transfusion Reaction or Anesthesia Reactions Family History FAMILY HISTORY: Negative Family Cardiac Disorders Social History SMOKING STATUS: Never smoker ED Exam Narrative Physical exam: Generally the patient is alert in no obvious distress, heart regular rate and rhythm, lungs clear to auscultation equal bilaterally, abdomen soft bowel sounds present nondistended nontender and obese extremities show edema erythema and swelling to the inner aspect of the left foot and ankle extending to the lateral aspect of the left foot and ankle. No obvious open wounds. No fluctuance. No drainage. Course Quality Measures none Orders Category Date Time Status CT Screening NOW Care 09/14/25 22:[address] foot LT w con Stat Exams 09/14/25 22:19 Completed Blood Culture (Lab) Stat Lab 09/14/25 21:46 Received CBC Stat Lab 09/14/25 21:41 Completed CMP [Comprehensive Metabolic Panel] Stat Lab 09/14/25 21:41 Completed Lactic Acid [Lactate (Lactic Acid)] Stat Lab 09/14/25 21:41 Completed VBG [Venous Blood Gas] Stat Lab 09/14/25 21:41 Completed HYDROcodone/APAP [[place] ] Med 09/14/25 21:24 Discontinued 1 tab PO X1 ONE Insulin Regular Med 09/14/25 22:58 Discontinued 16 unit IV X1 ONE Sodium Chloride 0.9% 1000 ml [Ns] 1,000 ml Med 09/14/25 21:24 Discontinued IV 999 mls/hr Vancomycin Pharmacy to Dose Med 09/15/25 09:00 Pending 1 each IV QDAY Vancomycin/Ns 1 gm Ivpb 200 ml Med 09/15/25 00:30 Active IV Q100M cefTRIAXone/D5w 1gm IV premix [Rocephin/D5w 1gm IV Med 09/14/25 21:24 Discontinued premix] 1 gm in 50 ml IV X1 Vital Signs Vital signs: Vital Signs Temperature 98.9 F 09/14/25 20:42 Pulse Rate 110 H 09/14/25 20:42 Respiratory Rate 18 09/14/25 20:42 Blood Pressure 102/64 09/14/25 20:42 Pulse Oximetry (%) 98 09/14/25 20:42 Oxygen Delivery Method Room Air 09/14/25 20:42 Extremity Injury, Lower MDM Narrative MDM Narrative:: Scribe Attestation: 09/14/25 Medina Alexander am scribing for and in the presence of Dr. Pritchard. Patient is a diabetic. Patient's blood sugar is 522. Patient is not diabetic ketoacidosis. Patient received regular insulin 16 units IV. He was hydrated with a liter normal saline. He was given Rocephin 1 g IV and vancomycin pharmacy to dose. CT scan with IV contrast of the left foot showed evidence for early osteomyelitis of the distal aspect of the fifth metatarsal. No abscess. Case was discussed with hospitalist and the patient will require admission to hospital for further treatment and evaluation. White blood cell count was 24,900. Lactic acid level was not elevated. Patient data External records reviewed:: [facility] previous records (Per chart review, patient was seen here on 10/16/24 for right foot osteomyelitis.), EMS form and Other (specify) (Reviewed outpatient wound clinic notes from today and yesterday.) Clinical information provided by:: patient Social determinants that could affect healthcare access:: none Patient has the following chronic illnesses:: DMII, HTN, HLD How is presenting disease/condition affected by chronic disease/condition?: uneffected by Evaluation data The following diagnostics were reviewed and interpreted by me:: lab results and radiology exam(s) Lab and/or radiology exams considered but not ordered:: none Interpretation Summary: [facility] Report Signed Patient: ARMANDO HERRERA [facility]. Record#: [id number] Birthdate: 1985 Age/Sex: 40 / M Location: [facility] Attending Dr: Ordering Physician: Jeanmarie Pritchard DO Date of Service: 09/14/25 Procedure(s): CT foot LT w con Accession Number(s): [id number] cc: Jason Carroll MD; Jeanmarie Pritchard DO; Domingo Rivera MD~ Examination: CT left foot, with intravenous. 2-D sagittal reconstructions. 2-D coronal reconstructions. 3-D reconstructions. Date and time of exam: September 14, 2025 11:30 p.m. INDICATIONS: Left foot swelling and pain 7 years CTDI: vol (mGy): 4.16 DLP: (mGycm): 178 Technique: Multiple 1.25 mm axial sections of the left foot post 60 cc Isovue-370 have been obtained. 2-D sagittal and coronal reconstructions have been obtained. 3-D reconstructions have been obtained. Low dose protocols were performed. One or more of the following dose reduction techniques were used; automated exposure control, adjustment of the mA and/or KV according to patient size, use of iterative reconstruction technique. Findings: Significant osteopenia Soft tissue edema surrounding the foot especially dorsum of the foot Air density adjacent to the distal fifth metatarsal Mild cortical bone destruction distal fifth metatarsal No definite fluid-filled abscess No fracture IMPRESSION: Early osteomyelitis distal fifth metatarsal MRI foot without contrast follow-up would be preferable in assessing full extent of osteomyelitis Dictated By: Jason Carroll MD Signed By: <Electronically signed by Jason Carroll MD in OV> 09/14/25 3669 Medications / Prescriptions Medications or Prescriptions considered but not ordered:: none Medication administrations:: Medication Administration History Vancomycin/Sodium Chloride (Vancomycin/Ns 1 Gm Ivpb) 200 mls @ 120 mls/hr IV Q100M RONALD Stop: 09/15/25 03:49 Pharmacy Consult (Vancomycin Pharmacy To Dose 1 Each Each) 1 each IV QDAY RONALD Stop: 10/15/25 08:59 Discontinued Medications Hydrocodone Bitart/Acetaminophen (Hydrocodone/Apap 10/325 Tab) 1 tab PO X1 ONE Stop: 09/14/25 21:25 Last Admin: 09/14/25 21:57 Dose: 1 tab Documented By: ARMAAN Sodium Chloride (Ns) 1,000 mls @ 999 mls/hr IV .Q1H1M ONE Stop: 09/14/25 22:24 Last Infusion: 09/14/25 23:00 Dose: Infused Documented By: Admin: 09/14/25 21:57 Dose: 999 mls/hr Documented By: ARMAAN Ceftriaxone Sodium/Dextrose (Rocephin/D5w 1gm Iv Premix) 1 gm in 50 mls @ 100 mls/hr IV X1 ONE Stop: 09/14/25 21:53 Last Infusion: 09/14/25 23:00 Dose: Infused Documented By: Admin: 09/14/25 21:57 Dose: 100 mls/hr Documented By: ARMAAN Insulin Human Regular (Insulin Hum Regular 1 Unit/0.01 Ml (Per Unit)) 16 unit IV X1 ONE Stop: 09/14/25 22:59 Last Admin: 09/14/25 23:48 Dose: 16 unit Documented By: ARMAAN Co-signed By: AVERY see above Consultations Consultation(s) initiated? (list below): Yes Diagnosis Extremity Injury, Lower Differential Diagnosis: other (See MDM) Most likely diagnosis given after review of the tests above:: see clinical impression below Admission Indicated Admission indicated?: indicated Admission Request Was there a request for admission?: Yes Admission Attestation Admission request attestation: Discussed case with [] from Hospitalist service regarding admission. Discussed patients ED course, exam findings, labs, and radiology results. The Hospitalist [agrees,declines] to accept the patient for admission. Disposition Plan Disposition Plan: Admit Discharge Plan Plan Patient Disposition: Admit Acute Care w/in Hospital Prescriptions/Referrals Prescriptions/Med Rec: No Action metformin 500 mg tablet 500 mg PO QAM Patient Comments: TAKE ONE TABLET BY MOUTH THREE TIMES DAILY WITH MEALS pravastatin 10 mg tablet 10 mg PO DAILY Patient Comments: TAKE ONE TABLET BY MOUTH AT BEDTIME lisinopril 5 mg tablet 5 mg PO DAILY Patient Comments: TAKE ONE TABLET BY MOUTH DAILY (DME) insulin syringe-needle U-100 [TRUEplus Insulin] 0.5 mL 31 gauge x 5/16 syringe Patient Comments: USE 1 SYRINGE UP TO FOUR TIMES DAILY NEEDED FOR GLUCOSE MANAGEMENT (DME) FreeStyle Courtney 2 [place] Misc See Rx Instructions .Route Qty: 1 0RF Rx Instructions: As directed (DME) FreeStyle Courtney 2 Sensor Kit See Rx Instructions .Route Qty: 1 0RF Rx Instructions: As directed doxycycline hyclate 100 mg capsule 100 mg PO BID Qty: 21 0RF doxycycline hyclate 100 mg capsule 100 mg PO BID Qty: 10 0RF insulin glargine [Lantus U-100 Insulin] 100 unit/mL Solution 65 unit SCi QDAY Qty: 10 4RF lisinopril 5 mg tablet 5 mg PO QDAY Qty: 30 1RF Referrals: Domingo Rivera MD [Primary Care Provider, Family Practice] - In 1 week Problem List Clinical Impression: Cellulitis, Osteomyelitis, Poorly controlled diabetes mellitus Patient/Caregiver Discharge Instructions Print Language: Honduran Stand Alone Forms: Wendy Award Info., Patient Portal Info Letter
[2025-09-14 21:19] VITALS: BP 99/65; PULSE 106; RESP 18; TEMP 36.7; O2SAT 99
[2025-09-14] MEDS: SODIUM CHLORIDE 0.9% 1000 ML 1,000 ML 999 ML IV (21:57)
[2025-09-14] MEDS: cefTRIAXone/D5w 1gm IV premix 1 GM/50 ML BAG IV (21:57)
[2025-09-14 22:10] LABS: Base Excess, Venous 2 (-3-3); O2 Saturation, Venous 97 % (96-97); PCO2, Venous 39 mmHg (36-56); PO2, Venous 77 mmHg (15-58); pH, Venous 7.44 (7.33-7.66)
[2025-09-14 22:11] LABS: Lactate (Lactic Acid) 1.9 mMol/L (0.4-2.0)
[2025-09-14 22:13] LABS: Basophils # (Auto) 0.1 Thou/mm3 (0.0-0.2); Basophils % (Auto) 0 % (0-2.5); Eosinophils # (Auto) 0.1 Thou/mm3 (0.0-0.5); Eosinophils % (Auto) 0 % (0-10); Hematocrit 27.3 % (41.0-53.0); Hemoglobin 9.3 g/dL (13.5-16.0); Immature Granulocytes Auto 0.64 Thou/mm3 (0.00-0.00); Lymphocytes # (Auto) 1.7 Thou/mm3 (1.0-4.8); Lymphocytes % (Auto) 7 % (10-50); Mean Corpuscular HGB Conc 34.1 g/dl (31.0-37.0); Mean Corpuscular Hemoglobin 28.7 pg (25.0-35.0); Mean Corpuscular Volume 84 fL (80-100); Monocytes # (Auto) 1.6 Thou/mm3 (0.0-0.8); Monocytes % (Auto) 7 % (0-12); Neutrophils # (Auto) 20.7 Thou/mm3 (1.8-7.7); Neutrophils % (Auto) 83 % (37-80); Nucleated Red Blood Cell # 0.00 Thou/mm3 (0.00-0.00); Nucleated Red Blood Cell % 0 /100 WBC (0); Platelet Count 251 Thou/mm3 (140-440); RDW Standard Deviation 41.6 fL (35.1-43.9); Red Blood Count 3.24 Miln/mm3 (4.50-5.90); White Blood Count 24.9 Thou/mm3 (3.8-10.6)
--- NOTE | 2025-09-14 22:19 | XR_ITS ---
Examination: CT left foot, with intravenous. 2-D sagittal reconstructions. 2-D coronal reconstructions. 3-D reconstructions. Date and time of exam: September 14, 2025 11:30 p.m. INDICATIONS: Left foot swelling and pain 7 years CTDI: vol (mGy): 4.16 DLP: (mGycm): 178 Technique: Multiple 1.25 mm axial sections of the left foot post 60 cc Isovue-370 have been obtained. 2-D sagittal and coronal reconstructions have been obtained. 3-D reconstructions have been obtained. Low dose protocols were performed. One or more of the following dose reduction techniques were used; automated exposure control, adjustment of the mA and/or KV according to patient size, use of iterative reconstruction technique. Findings: Significant osteopenia Soft tissue edema surrounding the foot especially dorsum of the foot Air density adjacent to the distal fifth metatarsal Mild cortical bone destruction distal fifth metatarsal No definite fluid-filled abscess No fracture IMPRESSION: Early osteomyelitis distal fifth metatarsal MRI foot without contrast follow-up would be preferable in assessing full extent of osteomyelitis
[2025-09-14 22:43] LABS: Alanine Aminotransferase 14 U/L (10-49); Albumin, Serum 3.0 gm/dL (3.5-5.0); Albumin/Globulin Ratio 1.1 (1.2-2.2); Alkaline Phosphatase 193 U/L (46-116); Anion Gap 9 (7-16); Aspartate Amino Transferase 24 U/L (0-34); BUN/Creatinine Ratio 16 Ratio (12-20); Bilirubin,Total 0.6 mg/dL (0.3-1.2); Blood Urea Nitrogen 13 mg/dL (9-23); Calcium 7.9 mg/dL (8.3-10.6); Calcium (Corrected) 8.7 mg/dL (8.5-10.1); Carbon Dioxide 26.1 mMol/L (20.0-31.0); Chloride 93 mMol/L (98-107); Creatinine (Component) 0.8 mg/dL (0.6-1.3); Estimated Creatinine Clearance 162.5 mL/min (>60); Globulin 2.7 gm/dL (2.3-3.5); Osmolality,Calculated 281 (275-295); Potassium 3.9 mMol/L (3.4-5.1); Sodium 128 mMol/L (136-145); Total Protein 5.7 gm/dL (5.7-8.2); eGFR > 60 See Note
[2025-09-14 22:50] LABS: Glucose 522 mg/dL (74-106)
[2025-09-14] MEDS: INSULIN HUM REGULAR 1 UNIT/0.01 ML (PER UNIT) 16 UNIT IV (23:48)
--- NOTE | 2025-09-15 01:54 | EDNOTE_ITS ---
Emergency Room Addendum Addendum Narrative: Patient at this time wishes to go AGAINST MEDICAL ADVICE. I went and spoke to the patient and tried to convince him to stay. He states he has business he needs to take care of at home and promises to return. He has the capacity to make his own decisions. He fully understands that his overall condition can worsen including the loss of his foot and leg on the left side with a cellulitis and osteomyelitis is. He also may suffer from if the infection gets wo rse. He is able to understand those risk and is willing to take those risks.
== END 2025-09-15 02:22 | disposition admitted as inpatient to this hospital (09) ==
PROVIDERS: Emergency Provider Emergency Medicine; PCP Family Medicine
DX: L03.116 Cellulitis of left lower limb (principal); E11.65 Type 2 diabetes mellitus with hyperglycemia; E11.69 Type 2 diabetes mellitus with other specified complication; E78.5 Hyperlipidemia, unspecified; I10 Essential (primary) hypertension; M86.9 Osteomyelitis, unspecified; Z79.84 Long term (current) use of oral hypoglycemic drugs
CPT/HCPCS: 36415; 73701; 80053; 82803; 83605; 85025; 87040; 87077; 87186; 96365; 99285; A4649; J0696; J1815; J7030; Q9967; A9270

== ENCOUNTER → 2025-09-14 | Outpatient (CLI) | payer MEDICAID, SELFPAY | END | disposition home or self-care (01) | LOC: SWHD 09:11 | PROVIDERS: PCP Family Medicine; Referring Provider Family Medicine; Visit Provider Student in an Organized Health Care Education/Training Program | DX: E11.621 Type 2 diabetes mellitus with foot ulcer (principal); L97.412 Non-pressure chronic ulcer of right heel and midfoot with fat layer exposed; S90.122A Contusion of left lesser toe(s) without damage to nail, initial encounter; S91.002A Unspecified open wound, left ankle, initial encounter; X58.XXXA Exposure to other specified factors, initial encounter; J45.909 Unspecified asthma, uncomplicated; Z79.84 Long term (current) use of oral hypoglycemic drugs; F41.9 Anxiety disorder, unspecified | CPT/HCPCS: 10060; A9270 ==

== ENCOUNTER 2025-09-15 17:13 | Emergency (ER) | payer MEDICAID, SELFPAY ==
[2025-09-15 17:14] VITALS: BMI 30.4
[2025-09-15 17:28] VITALS: BP 96/62; PULSE 115; RESP 18; TEMP 37.6; O2SAT 98
--- NOTE | 2025-09-15 17:36 | PD.EDRME ---
Rapid Medical Screening Exam [facility] Arrival date/time: 09/15/25 17:13 40-year-old male with a history of hypertension, type 2 diabetes, hyperlipidemia presents to the emergency room with a chief complaint of osteomyelitis in his left foot fifth digit. Patient was seen here yesterday and was going to get admitted but the patient signed out AGAINST MEDICAL ADVICE. I have greeted and performed a focused initial assessment of this patient. A comprehensive ED assessment and evaluation of the patient, analysis of all test results, and completion of the medical decision making process will be conducted by additional ED providers. Chief Complaint: Fever Time Seen by Provider: 09/15/25 17:20 Vital signs: Vital Signs Temperature 99.7 F 09/15/25 17:28 Pulse Rate 115 H 09/15/25 17:28 Respiratory Rate 18 09/15/25 17:28 Blood Pressure 96/62 09/15/25 17:28 Pulse Oximetry (%) 98 09/15/25 17:28 Oxygen Delivery Method Room Air 09/15/25 17:28 Vital signs reviewed by provider: Yes Exam: Swelling tenderness and erythema to his left foot that spreads all the way up his left thigh Clinical Impression: Osteomyelitis/cellulitis/DVT
--- NOTE | 2025-09-15 19:19 | PC.NURSE ---
@1823 - PT CALLED FROM ED [facility] ED ENTRANCE; NO ANSWER AT THIS TIME. @1850 - PT CALLED FROM ED [facility] ED ENTRANCE FOR 2ND CALL; NO ANSWER AT THIS TIME. @1915 - PT CALLED FROM ED [facility] ED ENTRANCE FOR LAST CALL; NO ANSWER AT THIS THIS TIME.
--- NOTE | 2025-09-15 19:24 | PC.NURSE ---
@1905 - RECEIVED CALL FROM LAB WITH POSITIVE BLOOD CULTURES; PT NOT ANSWERING AT THIS TIME. ATTEMPTED TO CALL PT'S CELLPHONE, PT'S - NO ANODIZER. CALLED & SPOKE TO PT'S MOTHER ASKING IF THEY ARE AWARE OF WHERE PT IS SINCE PT IS NOT IN THE ED LOBBY OR OUTSIDE ED MAIN ENTRANCE; PER PT'S MOTHER, I WILL CALL SOMEONE ELSE RIGHT NOW AND SEE.
== END 2025-09-15 19:47 | disposition left against medical advice (07) ==
LOC: SERX 18:21
PROVIDERS: Emergency Provider Emergency Medicine
DX: Z53.21 Procedure and treatment not carried out due to patient leaving prior to being seen by health care provider (principal)
CPT/HCPCS: 80053; 81001; 83605; 84145; 85025; 87040; 87086; 99281

== ENCOUNTER 2025-09-16 16:36 | Inpatient (IN) | payer MEDICAID, SELFPAY ==
[2025-09-16 16:44] VITALS: PULSE 125
[2025-09-16 16:48] VITALS: BP 128/73; PULSE 125; RESP 18; TEMP 38.2; O2SAT 95; BMI 30.9
--- NOTE | 2025-09-16 17:12 | EDNOTE_ITS ---
ED Skin Abcess FB-RME/HPI General Chief complaint: Fever Stated complaint: FEVER CHILLS Time Seen by Provider: 09/16/25 16:39 Arrival date/time: 09/16/25 16:36 RME / HPI RME / HPI narrative: DR. JAMES MAIN ED EVALUATION: 40-year-old male with a history of diabetes mellitus, hypertension, and hyperlipidemia presents to the Emergency Department for re-evaluation of a left foot infection. The patient was seen yesterday for the same issue but left AMA due to lack of childcare, as his mother is undergoing chemotherapy and unable to assist with his children. He reports continued pain, redness, and swelling of the left foot. He was started on antibiotics and had an I&D performed 3 days ago at the wound clinic. Denies fever, chills, chest pain, shortness of breath, or drug use. No known allergies. He also notes uncontrolled diabetes with persistent nausea and feeling unwell, and his blood sugars have remained high over the past week and a half. Related Data Home Medications ?Medication ?Instructions ?Recorded ?Confirmed insulin syringe-needle U-100 0.5 09/22/24 09/17/25 mL 31 gauge x 5/16 (TRUEplus Insulin) lisinopril 5 mg tablet 5 mg PO DAILY 09/22/2409/17 metformin 500 mg tablet 500 mg PO QAM 09/22/2409/17 Previous Rx's ?Medication ?Instructions ?Recorded flash glucose scanning reader #1 ea 09/24/24 (FreeStyle Courtney 2 [place]) flash glucose sensor (FreeStyle #1 ea 09/24/24 Courtney 2 Sensor kit) doxycycline hyclate 100 mg capsule 100 mg PO BID #10 c aps 09/29/24 insulin glargine 100 unit/mL 65 unit (0.65 mL) SCi QDA Y #10 mL 09/29/24 subcutaneous solution (Lantus U-100 Insulin) lisinopril 5 mg tablet 5 mg PO QDAY #30 tabs Allergies Allergy/AdvReac Type Severity Reaction Status Date / Time No Known Allergies Allergy Verified 09/16/25 16:47 Review of Systems Review of Systems Systems Reviewed: All systems reviewed, normal except as documented Past Medical History Past Medical History CARDIAC: Positive Hypercholesterolemia and Hypertension ENDOCRINE: Positive Diabetes Mellitus Type 2 PSYCHO/SOCIAL: Positive Anxiety OTHER HISTORY: Positive Falls Social History SMOKING STATUS: Never smoker SUBSTANCE USE: does not use ALCOHOL: Never ED Exam Narrative Physical exam: GENERAL APPEARANCE: Alert and oriented x4, appears mildly pale and diaphoretic VITALS: All vitals were reviewed and the pulse ox is 95% on room air, which is normal according to my interpretation. HEENT: Tachycardic; regular rhythm; normal S1 and S2; no murmurs NECK: Supple LUNGS: CTABL; no wheezes, no rales, no rhonchi HEART: Regular rate, regular rhythm; normal S1, S2; no murmurs ABDOMEN: non distended; normal BS; soft, no tenderness, no guarding, no rebound; no masses, no organomegaly, no hernia BACK: no CVA tenderness EXTREMITIES: Bilateral feet are dressed NEUROLOGIC: awake; alert and oriented x4; cranial nerves II-XII grossly intact; no focal sensory or motor deficits PSYCHIATRIC: appropriate mood and affect SKIN: Mild pallor and diaphoresis; no rash Course Quality Measures Current suspected stage: sepsis Possible source: skin/soft tissue and wound Blood cultures ordered: yes Antibiotic ordered: Yes Pertinent labs: 09/16/25 18:02 Lactic Acid 1.6 mMol/L (0.4-2.0) Procalcitonin 5.33 H ng/ml (0.0-0.49) sepsis Orders Category Date Time Status Admit to Inpatient Status Routine Admission 09/16/25 20:08 Active Patient Condition Routine Admission 09/16/25 20:08 Ordered Bedside COVID-19 Antigen Test NOW Care 09/16/25 19:32 Active COVID-19 Screening Questionnaire NOW Care 09/16/25 19:31 Active 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 Care 09/16/25 17:45 Active EKG (ED ONLY) *Do not use* NOW Care 09/16/25 17:45 Completed EKG (ED ONLY) *Do not use* NOW Care 09/16/25 19:39 Completed Flu & Pneumonia Vaccine Screen ONCE Care 09/16/25 20:14 Active NPO after Midnight ONCE Care 09/16/25 20:10 Active Notify provider NEEDED Care 09/16/25 20:08 Active Consult to General Surgery Stat Cons 09/16/25 20:20 Ordered Diet NPO after Midnight Diet 09/17/25 00:01 Active CA echo doppler complete Stat Exams 09/16/25 20:[address] foot LT wo con Stat Exams 09/16/25 20:19 Completed EKG (ED Only) Stat Exams 09/16/25 17:45 Draft EKG (ED Only) Stat Exams 09/16/25 19:39 Draft XR chest 1V portable Stat Exams 09/16/25 17:45 Completed Acetaminophen Stat Lab 09/16/25 18:02 Completed BHB [Beta Hydroxybutyrate] Stat Lab 09/16/25 20:09 Completed Blood Culture (Lab) Stat Lab 09/16/25 17:57 Received CBC AM DRAW Lab 09/17/25 05:20 Completed CBC AM DRAW Lab 09/18/25 05:00 Ordered CBC AM DRAW Lab 09/19/25 05:00 Ordered CBC Stat Lab 09/16/25 18:02 Completed CRP [C-Reactive Protein] Stat Lab 09/16/25 18:02 Completed Comprehensive Metabolic Panel AM DRAW Lab 09/17/25 05:20 Completed Comprehensive Metabolic Panel AM DRAW Lab 09/18/25 05:00 Ordered Comprehensive Metabolic Panel AM DRAW Lab 09/19/25 05:00 Ordered Comprehensive Metabolic Panel Stat Lab 09/16/25 18:02 Completed ESR [Sed Rate (ESR)] Stat Lab 09/16/25 18:02 Completed Lactate (Lactic Acid) Stat Lab 09/16/25 18:02 Completed Lipase Stat Lab 09/16/25 18:02 Completed Lipid Panel AM DRAW Lab 09/17/25 05:20 Completed Magnesium AM DRAW Lab 09/17/25 05:20 Completed Magnesium AM DRAW Lab 09/18/25 05:00 Ordered Magnesium AM DRAW Lab 09/19/25 05:00 Ordered Magnesium Stat Lab 09/16/25 18:02 Completed Partial Thromboplastin Time Stat Lab 09/16/25 18:02 Completed Phosphorous AM DRAW Lab 09/17/25 05:20 Completed Phosphorous AM DRAW Lab 09/18/25 05:00 Ordered Phosphorous AM DRAW Lab 09/19/25 05:00 Ordered Procalcitonin Stat Lab 09/16/25 18:02 Completed Prothrombin Time with INR Stat Lab 09/16/25 18:02 Completed Troponin I Stat Lab 09/16/25 18:02 Completed Urinalysis Stat Lab 09/16/25 19:49 Ordered VBG [Venous Blood Gas] Stat Lab 09/16/25 20:09 Completed Acetaminophen Ivpb [Ofirmev Inj] Med 09/16/25 20:25 Discontinued 1,000 mg in 100 ml IV X1 Acetaminophen Tab [Tylenol Tab] Med 09/16/25 20:08 Active 650 mg PO Q6H PRN Acetaminophen Tab [Tylenol Tab] Med 09/16/25 20:08 Active 650 mg PO Q6H PRN Heparin Inj Med 09/16/25 21:00 Active 5,000 unit SC BID Morphine* Inj Med 09/16/25 20:08 Active 2 mg IVP Q6HR PRN Ondansetron Inj [Zofran Inj] Med 09/16/25 20:08 Active 4 mg IVP Q6H PRN Piper/Tazo 3.375 gm Premix [Zosyn] Med 09/16/25 17:47 Discontinued 3.375 gm in 50 ml IV X1 Sodium Chloride 0.9% 1000 ml [Ns] 1,000 ml Med 09/16/25 17:47 Discontinued IV 999 mls/hr Vancomycin Pharmacy to Dose Med 09/17/25 09:00 Active 1 each IV QDAY PRN Vancomycin/Ns 1 gm Ivpb 200 ml Med 09/16/25 17:47 Discontinued IV X1 Code Status Routine Oth 09/16/25 20:08 Ordered Vital Signs Vital signs: Vital Signs Temperature 100.7 F H 09/16/25 16:48 Pulse Rate 125 H 09/16/25 16:48 Respiratory Rate 18 09/16/25 16:48 Blood Pressure 128/73 09/16/25 16:48 Pulse Oximetry (%) 95 09/16/25 16:48 Oxygen Delivery Method Room Air 09/16/25 16:48 Skin / Abscess / Foreign Body MDM Narrative MDM Narrative:: Eloisa Haynes am scribing for and in the presence of Dr. James. Patient data External records reviewed:: [facility] previous records and EMS form Clinical information provided by:: patient and EMS Social determinants that could affect healthcare access:: none Patient has the following chronic illnesses:: diabetes mellitus, hypertension, and hyperlipidemia How is presenting disease/condition affected by chronic disease/condition?: exacerbated by Evaluation data The following diagnostics were reviewed and interpreted by me:: lab results, radiology exam(s) and EKG tracing(s) Lab and/or radiology exams considered but not ordered:: none Interpretation Summary: Procedure(s): XR chest 1V portable Accession Number(s): [id number] cc: Jason Carroll MD; NO PRIMARY/FAMILY,PHYSICIAN; Danielle James MD~ EXAMINATION: AP chest single view TECHNIQUE: AP portable upright chest single view Date and time: September 16, 2025, 1614 hours, comparison April 13, 2014 INDICATIONS: Shortness of breath today. FINDINGS: Normal heart size Moderate vascular congestion Accentuation of the bronchovascular markings No lobar pneumonia or gemma pulmonary edema IMPRESSION: Moderate vascular congestion Suspicious for basilar bronchitis Dictated By: Jason Carroll MD Medications / Prescriptions Medications or Prescriptions considered but not ordered:: none Medication administrations:: Medication Administration History Acetaminophen (Acetaminophen 325 Mg Tablet) 650 mg PO Q6H PRN PRN Reason: Fever >101.5 Stop: 10/16/25 20:07 Acetaminophen (Acetaminophen 325 Mg Tablet) 650 mg PO Q6H PRN PRN Reason: PAIN SCALE 1-3 (mild Stop: 10/16/25 20:07 Atorvastatin Calcium (Atorvastatin Calcium 10 Mg Tablet) 10 mg PO HS RONALD Stop: 10/17/25 20:59 Dextrose (Dextrose 50%-Water Inj 50 Ml Syringe) 25 ml IV Q15MIN PRN PRN Reason: BG 50-70 responsive npo pt Stop: 10/16/25 20:52 Dextrose (Dextrose 50%-Water Inj 50 Ml Syringe) 50 ml IV Q15MIN PRN PRN Reason: BG <50 OR BG <70 & pt unresponsive Stop: 10/16/25 20:52 Glucagon (Glucagon Inj 1 Mg Vial) 1 mg IM Q15MIN PRN PRN Reason: BG <70, and no IV access Heparin Sodium (Porcine) (Heparin Sod Inj 5000 Unit/Ml Vial) 5,000 unit SC BID RONALD Stop: 09/30/25 20:59 Last Admin: 09/17/25 08:06 Dose: 5,000 unit Documented By: Co-signed By: EMMETT Admin: 09/16/25 21:31 Dose: 5,000 unit Documented By: ALEXSANDER Co-signed By: Sodium Chloride (Ns) 1,000 mls @ 75 mls/hr IV .[id number] RONALD Stop: 09/17/25 23:45 Last Admin: 09/16/25 22:55 Dose: 75 mls/hr Documented By: MARY Vancomycin HCl/Dextrose (Vancomycin/D5w 1,250 Mg Ivpb) 250 mls @ 120 mls/hr IV Q8HR RONALD; Protocol Stop: 09/24/25 07:29 Last Admin: 09/17/25 08:05 Dose: 120 mls/hr Documented By: MR Ceftriaxone Sodium/Dextrose (Rocephin/D5w 2gm) 2 gm in 50 mls @ 100 mls/hr IV QDAY RONALD Stop: 09/24/25 09:29 Last Admin: 09/17/25 10:35 Dose: 100 mls/hr Documented By: MR Insulin Degludec (Insulin Degludec 5 Unit/0.05 Ml (Per 5 Units)) 65 unit SC DAILY@2100 RONALD Stop: 10/17/25 20:59 Insulin Human Lispro (Insulin Lispro (Admelog) 1 Unit/0.01 Ml Unit) 0 unit SC Q6H RONALD; Protocol Stop: 10/16/25 20:59 Last Admin: 09/17/25 10:00 Dose: 4 unit Documented By: Co-signed By: CELE Admin: 09/17/25 03:35 Dose: 5 unit Documented By: MARY Co-signed By: ALYSHA Admin: 09/16/25 21:39 Dose: 6 unit Documented By: ALEXSANDER Co-signed By: SIVLIA Morphine Sulfate (Morphine Sulf Inj 4 Mg/Ml Vial) 2 mg IVP Q6HR PRN PRN Reason: PAIN SCALE 7-10 (Severe Stop: 09/21/25 20:07 Last Admin: 09/17/25 08:06 Dose: 2 mg Documented By: MR Ondansetron HCl (Ondansetron Inj 2 Mg/Ml Inj 2 Ml) 4 mg IVP Q6H PRN; Protocol PRN Reason: NAUSEA OR VOMITING Stop: 10/16/25 20:07 Last Admin: 09/17/25 08:12 Dose: 4 mg Documented By: Pharmacy Consult (Vancomycin Pharmacy To Dose 1 Each Each) 1 each IV QDAY PRN PRN Reason: PROTOCOL Stop: 10/17/25 08:59 Discontinued Medications Vancomycin/Sodium Chloride (Vancomycin/Ns 1 Gm Ivpb) 200 mls @ 120 mls/hr IV X1 ONE Stop: 09/16/25 19:26 Last Infusion: 09/16/25 21:48 Dose: Infused Documented By: Infusion: 09/16/25 19:47 Dose: 120 mls/hr Documented By: Infusion: 09/16/25 19:07 Dose: 0 mls/hr Documented By: Admin: 09/16/25 18:53 Dose: 120 mls/hr Documented By: TM Piperacillin/Tazobactam/Dextrose (Zosyn) 3.375 gm in 50 mls @ 100 mls/hr IV X1 ONE; Protocol Stop: 09/16/25 18:16 Last Infusion: 09/16/25 19:07 Dose: 0 mls/hr Documented By: Admin: 09/16/25 18:53 Dose: 100 mls/hr Documented By: TM Sodium Chloride (Ns) 1,000 mls @ 999 mls/hr IV .Q1H1M ONE Stop: 09/16/25 18:47 Last Infusion: 09/16/25 20:18 Dose: Infused Documented By: Admin: 09/16/25 18:54 Dose: 999 mls/hr Documented By: BRYAN Acetaminophen (Ofirmev Inj) 1,000 mg in 100 mls @ 250 mls/hr IV X1 ONE Stop: 09/16/25 20:48 Last Infusion: 09/16/25 21:57 Dose: Infused Documented By: Admin: 09/16/25 21:30 Dose: 250 mls/hr Documented By: ALEXSANDER Piperacillin/Tazobactam/Dextrose (Zosyn) 3.375 gm in 50 mls @ 12.5 mls/hr IV Q8HR RONALD; Protocol Stop: 09/23/25 20:49 Last Admin: 09/17/25 06:23 Dose: 12.5 mls/hr Documented By: MARY Piperacillin/Tazobactam/Dextrose (Zosyn) 3.375 gm in 50 mls @ 100 mls/hr IV X1 ONE; Protocol Stop: 09/17/25 01:29 Last Admin: 09/17/25 01:00 Dose: 100 mls/hr Documented By: MARY Potassium Chloride (Kcl Ivpb) 10 meq in 100 mls @ 100 mls/hr IV Q1H RONALD Stop: 09/17/25 11:29 Last Admin: 09/17/25 10:35 Dose: 100 mls/hr Documented By: Infusion: 09/17/25 10:10 Dose: Infused Documented By: Admin: 09/17/25 09:10 Dose: 100 mls/hr Documented By: Infusion: 09/17/25 09:06 Dose: Infused Documented By: Admin: 09/17/25 08:06 Dose: 100 mls/hr Documented By: Lactated Ringer's (Lactated Ringers) 1,000 mls @ 999 mls/hr IV .Q1H1M ONE Stop: 09/17/25 08:29 Last Admin: 09/17/25 07:40 Dose: 999 mls/hr Documented By: Ceftriaxone Sodium 2 gm/ (Sodium Chloride) 50 mls @ 100 mls/hr IV QDAY RONALD Stop: 09/24/25 09:24 Insulin Degludec (Insulin Degludec 5 Unit/0.05 Ml (Per 5 Units)) 45 unit SC DAILY@2100 RONALD Stop: 10/16/25 20:59 Last Admin: 09/16/25 21:43 Dose: 45 unit Documented By: ALEXSANDER Co-signed By: SILVIA Insulin Human Lispro (Insulin Lispro (Admelog) 1 Unit/0.01 Ml Unit) 10 unit SC X1 ONE Stop: 09/17/25 07:31 Last Admin: 09/17/25 08:05 Dose: 10 unit Documented By: Co-signed By: EMMETT see above if any Consultations Consultation(s) initiated? (list below): Yes Consultation #1 (Physician, Specialty, Details): Discussed test HPI, PMHx, lab, radiology results and/or management with resident working with the hospitalist. Will admit for further evaluation and management. Accepts patient for admission. Time: 17:50 Diagnosis Skin/Abscess Differential Diagnosis: other (Diabetic foot infection, cellulitis, and sepsis.) Most likely diagnosis given after review of the tests above:: Osteomyelitis Sepsis Admission Indicated Admission indicated?: indicated Admission Request Was there a request for admission?: Yes Admission Attestation Admission request attestation: Discussed case with [] from Hospitalist service regarding admission. Discussed patients ED course, exam findings, labs, and radiology results. The Hospitalist [agrees,declines] to accept the patient for admission. Disposition Plan Disposition Plan: Admit Discharge Plan Plan Patient Disposition: Admit Acute Care w/in Hospital Problem List Clinical Impression: Osteomyelitis, Sepsis
[2025-09-16 17:36] VITALS: BP 117/73; PULSE 121; RESP 16; TEMP 37.8; O2SAT 96
--- NOTE | 2025-09-16 17:45 | XR_ITS ---
EXAMINATION: AP chest single view TECHNIQUE: AP portable upright chest single view Date and time: September 16, 2025, 1614 hours, comparison April 13, 2014 INDICATIONS: Shortness of breath today. FINDINGS: Normal heart size Moderate vascular congestion Accentuation of the bronchovascular markings No lobar pneumonia or gemma pulmonary edema IMPRESSION: Moderate vascular congestion Suspicious for basilar bronchitis
--- NOTE | 2025-09-16 17:45 | EKG_ITS ---
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
[2025-09-16 18:09] LABS: Lactate (Lactic Acid) 1.6 mMol/L (0.4-2.0)
[2025-09-16 18:17] LABS: Basophils # (Auto) 0.1 Thou/mm3 (0.0-0.2); Basophils % (Auto) 0 % (0-2.5); Eosinophils # (Auto) 0.1 Thou/mm3 (0.0-0.5); Eosinophils % (Auto) 0 % (0-10); Hematocrit 29.9 % (41.0-53.0); Hemoglobin 10.2 g/dL (13.5-16.0); Immature Granulocytes Auto 0.63 Thou/mm3 (0.00-0.00); Lymphocytes # (Auto) 1.6 Thou/mm3 (1.0-4.8); Lymphocytes % (Auto) 6 % (10-50); Mean Corpuscular HGB Conc 34.1 g/dl (31.0-37.0); Mean Corpuscular Hemoglobin 28.9 pg (25.0-35.0); Mean Corpuscular Volume 85 fL (80-100); Monocytes # (Auto) 1.2 Thou/mm3 (0.0-0.8); Monocytes % (Auto) 4 % (0-12); Neutrophils # (Auto) 25.5 Thou/mm3 (1.8-7.7); Neutrophils % (Auto) 87 % (37-80); Nucleated Red Blood Cell # 0.00 Thou/mm3 (0.00-0.00); Nucleated Red Blood Cell % 0 /100 WBC (0); Platelet Count 271 Thou/mm3 (140-440); RDW Standard Deviation 43.3 fL (35.1-43.9); Red Blood Count 3.53 Miln/mm3 (4.50-5.90); White Blood Count 29.2 Thou/mm3 (3.8-10.6)
[2025-09-16 18:25] LABS: INR 1.1 (0.9-1.3); Partial Thromboplastin Time 24.5 Seconds (22.0-36.0); Prothrombin Time 11.9 Seconds (9.0-12.2)
[2025-09-16 18:36] LABS: Alanine Aminotransferase 14 U/L (10-49); Albumin, Serum 3.0 gm/dL (3.5-5.0); Albumin/Globulin Ratio 1.1 (1.2-2.2); Alkaline Phosphatase 212 U/L (46-116); Anion Gap 16 (7-16); Aspartate Amino Transferase 21 U/L (0-34); BUN/Creatinine Ratio 23 Ratio (12-20); Bilirubin,Total 0.6 mg/dL (0.3-1.2); Blood Urea Nitrogen 16 mg/dL (9-23); Calcium 8.0 mg/dL (8.3-10.6); Calcium (Corrected) 8.8 mg/dL (8.5-10.1); Carbon Dioxide 19.8 mMol/L (20.0-31.0); Chloride 94 mMol/L (98-107); Creatinine (Component) 0.7 mg/dL (0.6-1.3); Estimated Creatinine Clearance 186.5 mL/min (>60); Globulin 2.8 gm/dL (2.3-3.5); Glucose 399 mg/dL (74-106); Lipase 25 U/L (12-53); Magnesium 1.8 mg/dL (1.6-2.6); Osmolality,Calculated 279 (275-295); Potassium 4.1 mMol/L (3.4-5.1); Procalcitonin 5.33 ng/ml (0.0-0.49); Sodium 130 mMol/L (136-145); Total Protein 5.8 gm/dL (5.7-8.2); Troponin I < 0.002 ng/mL (0.0-0.045); eGFR > 60 See Note
[2025-09-16] MEDS: VANCOMYCIN/NS 1 GM IVPB 200 ML IV (18:53)
[2025-09-16] MEDS: PIPER/TAZO 3.375 GM PREMIX 3.375 GM/50 ML BAG IV (18:53)
[2025-09-16] MEDS: SODIUM CHLORIDE 0.9% 1000 ML 1,000 ML 999 ML IV (18:54)
[2025-09-16 19:22] VITALS: BP 119/68; PULSE 117; RESP 17; TEMP 37.7; O2SAT 98
--- NOTE | 2025-09-16 19:39 | EKG_ITS ---
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
[2025-09-16 20:13] LABS: Base Excess, Venous -3 (-3-3); O2 Saturation, Venous 98 % (96-97); PCO2, Venous 25 mmHg (36-56); PO2, Venous 83 mmHg (15-58); pH, Venous 7.50 (7.33-7.66)
--- NOTE | 2025-09-16 20:14 | ECHO_ITS ---
Transthoracic Echo Report Ht (in): 74 Wt (lb): 241 Exam Location: 263 Status: Emergency Casting Wheel Operator: Faby Ladd Indications: Procedure Performed: BP: 119 / 76 HR: 110 MEASUREMENTS (Male / Female) Normal Values 2D ECHO LV Diastolic Diameter PLAX 5.1 cm 4.2 - 5.9 / 3.9 - 5.3 cm LV Systolic Diameter PLAX 3.3 cm IVS Diastolic Thickness 1.1 cm 0.6 - 1.0 / 0.6 - 0.9 cm LVPW Diastolic Thickness 1.1 cm 0.6 - 1.0 / 0.6 - 0.9 cm LV Relative Wall Thickness 0.4 LVOT Diameter 2.2 cm LV Ejection Fraction MOD BP 55.2 % >= 55 % LV Cardiac Index MOD BP 3116.3 cm?/min?m? LV Ejection Fraction MOD 4C 51.8 % LV Cardiac Index MOD 4C 2997.8 cm?/min?m? LV Ejection Fraction 4C AL 52.3 % LV Cardiac Index 4C AL 3168.8 cm?/min?m? LV Ejection Fraction MOD 2C 54.3 % LV Cardiac Index MOD 2C 2647.0 cm?/min?m? LV Ejection Fraction 2C AL 56.6 % LV Cardiac Index 2C AL 2834.7 cm?/min?m? LA Volume Index 19.0 cm?/m? 16 - 28 cm?/m? Ascending Aorta Diameter 3.0 cm M-MODE AV Cusp Separation MM 1.2 cm DOPPLER AV Peak Velocity 119.0 cm/s AV Peak Gradient 5.7 mmHg AV Mean Gradient 4.0 mmHg AV Velocity Time Integral 18.2 cm LVOT Peak Velocity 116.0 cm/s LVOT Peak Gradient 5.4 mmHg LVOT Velocity Time Integral 17.7 cm LVOT Cardiac Index 3065.4 cm?/min?m? AV Area Cont Eq vti 3.7 cm? AV Area Cont Eq pk 3.7 cm? MV Area PHT 7.9 cm? Mitral E Point Velocity 97.5 cm/s Mitral A Point Velocity 91.7 cm/s Mitral E to A Ratio 1.1 LV E' Lateral Velocity 14.4 cm/s Mitral E to LV E' Lateral Ratio 6.8 LV E' Septal Velocity 9.1 cm/s Mitral E to LV E' Septal Ratio 10.7 TR Peak Velocity 148.7 cm/s TR Peak Gradient 8.8 mmHg PV Peak Velocity 111.0 cm/s PV Peak Gradient 4.9 mmHg FINDINGS Left Ventricle Normal left ventricular size, wall thickness, systolic function with no obvious regional wall motion abnormalities. Normal left ventricular diastolic filling pattern for age. The ejection fraction is visually estimated at 50-55%. Right Ventricle The right ventricle is normal in size and systolic function. Left Atrium The left atrium is normal by two-dimensional, color flow and Doppler imaging with no structural abnormalities, no thrombus formation present. Right Atrium The right atrium is normal by two-dimensional imaging, color flow and Doppler imaging with no structural abnormalities, no thrombus formation present. Atrial Septum The interatrial septum appears normal with no evidence of a shunt. Aorta The aorta is normal by two-dimensional, color flow and Doppler interrogation. Mitral Valve The mitral valve is normal by two-dimensional, color flow and Doppler interrogation.trace to mild mitral regurgitation. Aortic Valve The aortic valve is trileaflet and normal by two-dimensional, color flow and Doppler interrogation. There is no significant aortic valve regurgitation.. Tricuspid Valve The tricuspid valve is normal by two-dimensional, color flow and Doppler interrogation. There is trace tricuspid valve regurgitation. Pulmonic Valve The pulmonic valve is not well visualized. There is no significant pulmonic valve regurgitation. Vessels The pulmonary artery appears normal. The inferior vena cava pulmonary and hepatic veins appear normal. Pericardium The pericardium is normal by two-dimensional imaging. There is no significant pericardial effusion. CONCLUSIONS Indication: Tachycardia. look for possible source of infection Normal left ventricular size and function. Approximate ejection fraction is 55- 60%. Normal right ventricular size and function. Trace mitral and trace tricuspid regurgitation noted. No pericardial effusion. Ravindra Ruvalcaba (Electronically Signed) Final Date: 18 September 2025 19:49 MTDD
--- NOTE | 2025-09-16 20:18 | PC.NURSE ---
per dr. garcia do not give zosyn iv
--- NOTE | 2025-09-16 20:19 | XR_ITS ---
Examination: CT left foot, without contrast. 2-D sagittal reconstructions. 2-D coronal reconstructions. 3-D reconstructions. Date and time of exam: September 16, 2025, 2043 hours INDICATIONS: Redness swelling and pain involving the foot today CTDI: vol (mGy): 5.70 DLP: (mGycm): 273 Technique: Multiple 1.25 mm axial sections of the left foot without intravenous contrast have been obtained. 2-D sagittal and coronal reconstructions have been obtained. 3-D reconstructions have been obtained. Low dose protocols were performed. One or more of the following dose reduction techniques were used; automated exposure control, adjustment of the mA and/or KV according to patient size, use of iterative reconstruction technique. Findings: Extensive edema in the subcutaneous fatty tissues surrounding the ankle and foot Air in the soft tissue adjacent to the fifth metatarsal consistent with infection by gas-forming organisms Suspicious for early cortical erosion distal fifth metatarsal Air in the soft tissue also plantar to the calcaneus and cuboid as well as base of the fifth metatarsal IMPRESSION: Soft tissue infection with gas-forming organisms Early osteomyelitis distal fifth metatarsal MRI foot without contrast follow-up would best assess for extent of osteomyelitis
[2025-09-16 20:20] LABS: Beta Hydroxybutyrate 5.4 mmol/L (<0.6)
[2025-09-16 20:45] LABS: Sed Rate (ESR) 78 mm/hr (0-15)
--- NOTE | 2025-09-16 21:08 | PD.RESHP ---
Documentation for date of: 09/16/25 [facility] History of Present Illness Chief complaint: Left foot cellulitis History of present illness: This is a 40-year-old male with past medical history of hypertension, diabetes, hyperlipidemia presented to the ED with complaint of left foot redness, swelling, pain since 3 days. He complains that he had a trauma on 09/09 to the left foot and started developing symptoms thereafter he endorses purulent discharge from the left foot since 3 days associated with fever/chills. He also complains of chest tightness, palpitation on and off since 3 days but denies any radiation to the arm. He endorses nausea, vomiting and diarrhea loose watery stools since last 5 days but denies any hematemesis, melena but denies any abdominal pain, suprapubic pain, urinary urgency, frequency. He complains of productive cough going on since 5 days with increased sputum production which is green in color. He endorses decreased appetite since last week. He presented to the ED on 09/14 for the similar complaints and left AMA at the time. Today ED visit vitals BP 128/73, pulse rate 120, respiratory 18, temperature 100.7 saturating 95% on room air. Pertinent lab findings are WBC 29.2 with neutrophils 87%, hemoglobin 10.2, hematocrit 29.9, ESR 78, sodium 130, chloride 94, bicarbonate 19.8, glucose 399, alkaline phosphatase 212, albumin 3, Pro-Frederick 5.33, BHB 5.4. Albumin 3, VBG pCO2 25. Pertinent imaging findings are CT soft tissue infection with gas-forming organism, early osteomyelitis in distal fifth metatarsal . Treatment given in ED 1 L of NS, Zosyn. Past medical history: Diabetes mellitus takes metformin 1000 mg daily, glargine 45 units, Humalog 50 units. Hyperlipidemia takes atorvastatin 10 mg Hypertension takes lisinopril 20 mg. Used to take gabapentin for his peripheral neuropathy but not taking anymore. Past surgical history: Left knee surgery Family history: History of lung cancer, colon cancer, hypertension, CHF in his maternal side Social history: Stopped smoking vape since 2020, consumes alcohol occasionally. Allergic history: Noncontributory Review of Systems Review of Systems Systems Reviewed: All systems reviewed, normal except as documented Exam Vital Signs Temp Pulse Resp BP Pulse Ox O2 Del Method 100 F 117 H 17 119/68 98 Room Air 09/16/25 19:22 09/16/25 19:22 09/16/25 19:22 09/16/25 19:22 09/16/25 19:22 09/16/25 19:22 Narrative Exam GENERAL: NAD, AAOx3 HEENT: Moist mucosa. Eyes open, symmetrical, & clear CARDIO: Rapid regular rhythm Noted. No Murmurs. PULM: No dyspnea CTA B/L, no R/W/R, occasional coughing GI: Abdomen soft, nondistended, non Tender. SKIN/MSK/EXT: . Cellulitis of the Lt foot and ankle area- warm,tender to touch and Edematous. Hematoma 3x4cm in size which is fluctuant on the lateral Dorsum of the foot.Dorsal pedis pulse on the Left side using arterial Doppler. NEURO: AAOx3, no focal neuro deficits, able to move all 4 extremities. absent sensation on plantar surface of Left foot Results: Labs 09/17/25 05:20 09/17/25 05:20 Labs: Short CBC 09/16/25 Range/Units 18:02 WBC 29.2 H (3.8-10.6) Thou/mm3 Hgb 10.2 L (13.5-16.0) g/dL Hct 29.9 L (41.0-53.0) % Plt Count 271 (140-440) Thou/mm3 BMP 09/16/25 18:02 Sodium 130 L Potassium 4.1 Chloride 94 L Carbon Dioxide 19.8 L BUN 16 Creatinine 0.7 Glucose 399 H D Calcium 8.0 L Cardiac Enzymes 09/16/25 Range/Units 18:02 Troponin I < 0.002 (0.0-0.045) ng/mL Liver Function 09/16/25 Range/Units 18:02 Total Bilirubin 0.6 (0.3-1.2) mg/dL AST 21 (0-34) U/L ALT 14 (10-49) U/L Alkaline Phosphatase 212 H (46-116) U/L Albumin 3.0 L (3.5-5.0) gm/dL ABG Interpretation ABG results: 09/16/25 20:09 VBG pH 7.50 VBG pCO2 25 L D VBG pO2 83 H VBG Base Excess -3 Quality Measures Quality Measures sepsis Current suspected stage: ruled out Possible source: skin/soft tissue and wound Blood cultures ordered: yes Antibiotic ordered: Yes Medications Home Medications and Allergies Home Medications ?Medication ?Instructions ?Recorded ?Confirmed ?Type insulin syringe-needle U-100 0.5 09/22/24 09/17/25 History mL 31 gauge x /16 (TRUEplus Insulin) lisinopril 5 mg tablet 5 mg PO DAILY 09/22/24 09/17/25 History metformin 500 mg tablet 500 mg PO QAM 09/22/24 09/17/25 History Allergies Allergy/AdvReac Type Severity Reaction Status Date / Time No Known Allergies Allergy Verified 09/16/25 16:47 Visit Medications Acetaminophen (Acetaminophen 325 Mg Tablet) 650 mg PO Q6H PRN PRN Reason: Fever >101.5 Stop: 10/16/25 20:07 Acetaminophen (Acetaminophen 325 Mg Tablet) 650 mg PO Q6H PRN PRN Reason: PAIN SCALE 1-3 (mild Stop: 10/16/25 20:07 Dextrose (Dextrose 50%-Water Inj 50 Ml Syringe) 25 ml IV Q15MIN PRN PRN Reason: BG 50-70 responsive npo pt Stop: 10/16/25 20:52 Dextrose (Dextrose 50%-Water Inj 50 Ml Syringe) 50 ml IV Q15MIN PRN PRN Reason: BG <50 OR BG <70 & pt unresponsive Stop: 10/16/25 20:52 Glucagon (Glucagon Inj 1 Mg Vial) 1 mg IM Q15MIN PRN PRN Reason: BG <70, and no IV access Heparin Sodium (Porcine) (Heparin Sod Inj 5000 Unit/Ml Vial) 5,000 unit SC BID RONALD Stop: 09/30/25 20:59 Piperacillin/Tazobactam/Dextrose (Zosyn) 50 mls @ 100 mls/hr IV Q6HR RONALD; Protocol Stop: 09/23/25 20:49 Piperacillin/Tazobactam/Dextrose (Zosyn) 3.375 gm in 50 mls @ 100 mls/hr IV X1 ONE; Protocol Stop: 09/17/25 01:29 Sodium Chloride (Ns) 1,000 mls @ 75 mls/hr IV .[id number] RONALD Stop: 09/17/25 23:45 Insulin Degludec (Insulin Degludec 5 Unit/0.05 Ml (Per 5 Units)) 45 unit SC DAILY@2100 RONALD Stop: 10/16/25 20:59 Insulin Human Lispro (Insulin Lispro (Admelog) 1 Unit/0.01 Ml Unit) 0 unit SC Q6H RONALD; Protocol Stop: 10/16/25 20:59 Morphine Sulfate (Morphine Sulf Inj 4 Mg/Ml Vial) 2 mg IVP Q6HR PRN PRN Reason: PAIN SCALE 7-10 (Severe Stop: 09/21/25 20:07 Ondansetron HCl (Ondansetron Inj 2 Mg/Ml Inj 2 Ml) 4 mg IVP Q6H PRN; Protocol PRN Reason: NAUSEA OR VOMITING Stop: 10/16/25 20:07 Pharmacy Consult (Vancomycin Pharmacy To Dose 1 Each Each) 1 each IV QDAY RONALD Stop: 10/17/25 08:59 Discontinued Medications Vancomycin/Sodium Chloride (Vancomycin/Ns 1 Gm Ivpb) 200 mls @ 120 mls/hr IV X1 ONE Stop: 09/16/25 19:26 Last Infusion: 09/16/25 19:47 Dose: 120 mls/hr Piperacillin/Tazobactam/Dextrose (Zosyn) 3.375 gm in 50 mls @ 100 mls/hr IV X1 ONE; Protocol Stop: 09/16/25 18:16 Last Infusion: 09/16/25 19:07 Dose: 0 mls/hr Sodium Chloride (Ns) 1,000 mls @ 999 mls/hr IV .Q1H1M ONE Stop: 09/16/25 18:47 Last Infusion: 09/16/25 20:18 Dose: Infused Acetaminophen (Ofirmev Inj) 1,000 mg in 100 mls @ 250 mls/hr IV X1 ONE Stop: 09/16/25 20:48 Assessment & Plan Plan This is a 40-year-old male with past medical history of hypertension, diabetes, hyperlipidemia presented to the ED with complaint of left foot redness, swelling, pain since 3 days associated with fever ,chills,vomitings and Diarrhea. He was admitted for Sepsis secondary to Left foot Osteomyelitis.. # Gram-positive Cocci bacteremia. # Sepsis secondary to left foot osteomyelitis. # Left Distal 5th Metatarsal Osteomyelitis # Left foot cellulitis with gas forming bacteria # Leukocytosis History of right foot osteomyelitis 1 year ago, diabetes, history of trauma to the left foot on 09/09. Fevers, chills, vomiting, diarrhea, decreased appetite. Pulse rate 125, temperature 100.7 WBC 29.2 with left shift, Pro-Frederick 5.33, ESR 78. Blood cultures from 09/14 shown gram-positive cocci in 2 out of [address] scan of the left foot showing left distal fifth metatarsal osteomyelitis pain concern for soft tissue infection with gas-forming organisms. ED sent for a blood culture again today. -Started him on vancomycin and Zosyn 3.375 mg every 6 hours. And acetaminophen as needed for his fever. -General surgery Dr. Tafoya was consulted and immediately notified of finding. -Starting manage n.p.o. after midnight. -Ordered echo Doppler to see if any possible source of this septic emboli in view of his bacteremia # Sinus tachycardia Pulse rate in the range of 110-125, complaints of chest tightness and palpitations. Initial troponin and EKG looks normal. ?Continue to monitor # Diabetes Initial blood glucose levels are 399, BHB 5.4 with normal anion gap. Resuming his home insulin long-acting 45 units and step 3 of sliding scale. ?Aiming for stricter blood glucose control. ?Educated on the footcare. # Pseudohyponatremia. # Hypochloremia Initial sodium level 130. Corrected sodium level 137 by taking in account of increased blood glucose. Hypochloremia in the setting of vomitings and diarrhea. ?Replating him with normal saline starting at 75 cc per. -Continue to monitor # Normocytic anemia Hemoglobin 10.2, hematocrit 29.9. ?Continue to monitor # Hypertension. Currently normotensive . ?Resume his home medication lisinopril 20 mg at later time when appropriate. # Hyperlipidemia Starting on his home medication atorvastatin 10 mg Continue to monitor. # Peripheral neuropathy He stopped taking gabapentin at his home. ?Continue to monitor. I discussed this case with my senior Dr. Cardoza and my attending Dr. Mariam Packer MD, PGY1 Attending Provider Attestation/Addendum After examination of the patient and review of the clinical data I feel that this patient needs admission to the hospital for further treatment/evaluation. Plan of care discussed with patient and is in agreement. I Kourtney Becerra MD, attest that I was physically present for garibay portions of evaluation, and examined patient, labs and imagings and plan of care were discussed with IM residents team, and I agree with the findings and plans documented above.
[2025-09-16 21:24] VITALS: BP 113/74; PULSE 110; RESP 19; TEMP 36.7; O2SAT 98
[2025-09-16] MEDS: ACETAMINOPHEN IVPB 1,000 MG/100 ML VIAL 250 MG IV (21:30)
[2025-09-16] MEDS: HEPARIN SOD INJ 5000 UNIT/ML VIAL SC (21:31)
[2025-09-16] MEDS: INSULIN LISPRO (AdmeLOG) 1 UNIT/0.01 ML UNIT SC (21:39)
[2025-09-16] MEDS: INSULIN DEGLUDEC 5 UNIT/0.05 ML (PER 5 UNITS) 45 UNIT SC (21:43)
[2025-09-16 21:53] LABS: Acetaminophen < 2.0 mcg/mL (10.0-20.0)
[2025-09-16] MEDS: SODIUM CHLORIDE 0.9% 1000 ML 1,000 ML 75 ML IV (22:55)
[2025-09-16 23:12] LABS: C-Reactive Protein 23.4 mg/dL (0.0-0.9)
[2025-09-17] VITALS (11 sets, daily range): BP systolic 104–140; BP diastolic 60–89; PULSE 92–124; RESP 14–47; TEMP 35.9–38.1; O2SAT 93–100; BMI 34.7
[2025-09-17] MEDS: PIPER/TAZO 3.375 GM PREMIX 3.375 GM/50 ML BAG IV ×2 (01:00→06:23)
[2025-09-17] MEDS: INSULIN LISPRO (AdmeLOG) 1 UNIT/0.01 ML UNIT SC ×3 (03:35→17:31)
[2025-09-17 05:53] LABS: Basophils # (Auto) 0.1 Thou/mm3 (0.0-0.2); Basophils % (Auto) 0 % (0-2.5); Eosinophils # (Auto) 0.3 Thou/mm3 (0.0-0.5); Eosinophils % (Auto) 1 % (0-10); Hematocrit 30.0 % (41.0-53.0); Hemoglobin 10.1 g/dL (13.5-16.0); Immature Granulocytes Auto 0.54 Thou/mm3 (0.00-0.00); Lymphocytes # (Auto) 1.8 Thou/mm3 (1.0-4.8); Lymphocytes % (Auto) 8 % (10-50); Mean Corpuscular HGB Conc 33.7 g/dl (31.0-37.0); Mean Corpuscular Hemoglobin 28.7 pg (25.0-35.0); Mean Corpuscular Volume 85 fL (80-100); Monocytes # (Auto) 1.1 Thou/mm3 (0.0-0.8); Monocytes % (Auto) 5 % (0-12); Neutrophils # (Auto) 19.8 Thou/mm3 (1.8-7.7); Neutrophils % (Auto) 84 % (37-80); Nucleated Red Blood Cell # 0.00 Thou/mm3 (0.00-0.00); Nucleated Red Blood Cell % 0 /100 WBC (0); Platelet Count 293 Thou/mm3 (140-440); RDW Standard Deviation 43.5 fL (35.1-43.9); Red Blood Count 3.52 Miln/mm3 (4.50-5.90); White Blood Count 23.6 Thou/mm3 (3.8-10.6)
[2025-09-17 06:16] LABS: Alanine Aminotransferase 11 U/L (10-49); Albumin, Serum 2.8 gm/dL (3.5-5.0); Albumin/Globulin Ratio 1.0 (1.2-2.2); Alkaline Phosphatase 196 U/L (46-116); Anion Gap 11 (7-16); Aspartate Amino Transferase 16 U/L (0-34); BUN/Creatinine Ratio 28 Ratio (12-20); Bilirubin,Total 0.6 mg/dL (0.3-1.2); Blood Urea Nitrogen 17 mg/dL (9-23); Calcium 8.0 mg/dL (8.3-10.6); Calcium (Corrected) 9.0 mg/dL (8.5-10.1); Carbon Dioxide 27.1 mMol/L (20.0-31.0); Cardiac Risk Estimate 17.0 RATIO (4.0-6.7); Chloride 97 mMol/L (98-107); Cholesterol 88 mg/dL (132-200); Creatinine (Component) 0.6 mg/dL (0.6-1.3); Estimated Creatinine Clearance 230.0 mL/min (>60); Globulin 2.8 gm/dL (2.3-3.5); Glucose 319 mg/dL (74-106); HDL Cholesterol < 5 mg/dL (40-60); LDL Cholesterol,Calculated 51 mg/dL (0-130); Magnesium 1.9 mg/dL (1.6-2.6); Osmolality,Calculated 283 (275-295); Phosphorous 3.6 mg/dL (2.4-5.1); Potassium 3.6 mMol/L (3.4-5.1); Sodium 135 mMol/L (136-145); Total Protein 5.6 gm/dL (5.7-8.2); Triglycerides 162 mg/dL (30-150); eGFR > 60 See Note
[2025-09-17 06:21] LABS: Glucose Estimated Average 355 mg/dL (80-131); Hemoglobin A1C > 14.0 % Hgb (4.8-6.0)
[2025-09-17] MEDS: RINGERS LACTATED 1000 ML 1,000 ML 999 ML IV (07:40)
[2025-09-17] MEDS: INSULIN LISPRO (AdmeLOG) 1 UNIT/0.01 ML UNIT 10 UNIT SC (08:05)
[2025-09-17] MEDS: VANCOMYCIN/D5W 1,250 MG IVPB 250 ML 120 MG IV ×3 (08:05→22:04)
[2025-09-17] MEDS: MORPHINE SULF INJ 4 MG/ML VIAL 2 MG IVP ×2 (08:06→22:13)
[2025-09-17] MEDS: POTASSIUM CHL 10 mEq IVPB 10 MEQ/100 ML BAG 100 MEQ IV ×4 (08:06→15:00)
[2025-09-17] MEDS: HEPARIN SOD INJ 5000 UNIT/ML VIAL SC ×2 (08:06→20:27)
[2025-09-17] MEDS: ONDANSETRON INJ 2 MG/ML INJ 2 ML 4 MG IVP (08:12)
--- NOTE | 2025-09-17 10:32 | PD.SURCONS ---
HPI Consult details History of present illness: 40M with HTN, HLD, DMII (A1c >14) who presented 09/16 with left foot pain, redness and swelling. Pt states he hurt his foot last week and since then developed worsening pain, now with purulent drainage associated with fever and chills. In ER his WBC was [address] showed a soft tissue infection with gas-forming organism and early osteomyelitis in the distal 5th metatarsal PMH: HTN, HLD, DMII PSHx: I&D of right foot (he [facility]), left knee surgery Meds: No antiplt or anticoagulation Allergies: NKDA Review of Systems Review of Systems ROS Unobtainable: All systems reviewed & no additional complaints except as documented Meds Home Medications and Allergies Home Medications ?Medication ?Instructions ?Recorded ?Confirmed ?Type insulin syringe-needle U-100 0.5 09/22/24 09/17/25 History mL 31 gauge x 5/16 (TRUEplus Insulin) lisinopril 5 mg tablet 5 mg PO DAILY 09/22/24 09/17/25 History metformin 500 mg tablet 500 mg PO QAM 09/22/24 09/17/25 History Allergies Allergy/AdvReac Type Severity Reaction Status Date / Time No Known Allergies Allergy Verified 09/16/25 16:47 Exam Vital Signs Temp Pulse Resp BP Pulse Ox O2 Del Method 96.7 F L 95 17 125/77 97 Room Air 09/17/25 08:00 09/17/25 08:00 09/17/25 08:00 09/17/25 08:00 09/17/25 08:00 09/17/25 08:00 Constitutional Constitutional: no acute distress Routine Respiratory Exam Respiratory: Present no resp distress Routine Extremities Exam Comments: right foot with dry eschar at the distal plantar surface, no swelling, palpable DP; left foot erythematous and diffusely swollen, DP nonpalpable, dark bulla at the lateral aspect and purulent drainage from the lateral heel Results Results: Laboratory Laboratory results: results reviewed Results: Imaging Imaging narrative: CT reviewed Assessment & Plan Plan 40M with HTN, HLD, DMII (A1c >14) presenting with left foot cellulitis, osteomyelitis of the distal 5th metatarsal as well as purulent drainage. I explained that incision and drainage is necessary to manage the infection and that because he has multiple areas of swelling he may need multiple incisions. At the moment he does not require any amputation although I cautioned that if his blood sugar remains consistently elevated he likely will at some point. All questions were answered and pt is agreeable to proceeding OR today for incision and drainage of left foot abscesses
[2025-09-17] MEDS: cefTRIAXone/D5w 2gm 2 GM/50 ML BAG IV (10:35)
--- NOTE | 2025-09-17 11:06 | ESPR_ITS ---
<Statement entered by Sheldon Duran MD - 09/18/25 15:53> I reviewed above note and agree with findings and plans. I have also personally examined the patient with medicine team and went over assessment and plan with medical team including journalism intern and resident physician. Documentation for date of: 09/17/25 Subjective Subjective Interval history: Patient seen at bedside. Patient's vitals and labs were reviewed. Gen surgery performed incision and drainage of abscesses at multiple sites on the left foot (distal lateral, heel lateral, heel medial, and distal medial), excision of necrotic skin. Four fluctuant areas containing pus. Total pus drained 40 cc. Patient tolerated procedure well. Pt continues on IV CTX 2g and Vanc. Patient continues on IV abx. Will need prolonged abx following PICC placement tomorrow. Exam Vital Signs Temp Pulse Resp BP Pulse Ox O2 Del Method 96.7 F L 95 17 125/77 97 Room Air 09/17/25 08:00 09/17/25 08:00 09/17/25 08:00 09/17/25 08:00 09/17/25 08:00 09/17/25 08:00 Narrative Exam General: Patient appears alert and oriented ? 3, in no acute distress. HEENT: Mucous membranes moist. Eyes open, pupils equal, round and reactive; external appearance symmetrical and clear. Cardiovascular: Heart rhythm is rapid and regular. No murmurs, gallops, or rubs heard. Pulmonary: Lungs clear bilaterally. No wheezes, rales or rhonchi. No dyspnea at rest, occasional cough present. Gastrointestinal: Abdomen soft, nondistended, non-tender. Bowel sounds present. Skin / Musculoskeletal / Extremities: * Right foot: Distal plantar surface shows a dry eschar; no swelling; dorsalis pedis pulse palpable. * Left foot: Markedly erythematous and diffusely swollen. DP pulse not palpable. A dark bulla is present at the lateral aspect of the foot, and there is purulent drainage from the lateral heel region. Neurologic: Patient is alert and oriented ? 3, moves all four extremities. On neurological exam: sensation is absent on the plantar surface of the left foot; otherwise no focal deficits noted. Objective Labs 09/17/25 05:20 09/17/25 13:40 Labs: Laboratory Results - last 24 hr 10/25/25 10/25/25 10/26/25 18:02 20:09 05:20 WBC 29.2 H 23.6 H D RBC 3.53 L 3.52 L Hgb 10.2 L 10.1 L Hct 29.9 L 30.0 L MCV 85 85 MCH 28.9 28.7 MCHC 34.1 33.7 RDW Std Deviation 43.3 43.5 Plt Count 271 293 Neut % (Auto) 87 H 84 H Lymph % (Auto) 6 L 8 L [place] % (Auto) 4 5 Eos % (Auto) 0 1 Baso % (Auto) 0 0 Neut # (Auto) 25.5 H 19.8 H Lymph # (Auto) 1.6 1.8 [place] # (Auto) 1.2 H 1.1 H Eos # (Auto) 0.1 0.3 Baso # (Auto) 0.1 0.1 Immature Gran # (Auto) 0.63 H 0.54 H Absolute Nucleated RBC 0.00 0.00 Immature Gran % 2 H 2 H Nucleated RBC % 0 0 ESR 78 H PT 11.9 INR 1.1 APTT 24.5 VBG pH 7.50 VBG pCO2 25 L D VBG pO2 83 H VBG O2 Sat (Eliot) 98 H VBG Base Excess -3 Sodium 130 L 135 L Potassium 4.1 3.6 D Chloride 94 L 97 L Carbon Dioxide 19.8 L 27.1 Anion Gap 16 11 BUN 16 17 Creatinine 0.7 0.6 Estim Creat Clear Calc 186.5 230.0 eGFR > 60 > 60 BUN/Creatinine Ratio 23 H 28 H Glucose 399 H D [address] Glu mg/dL 355 H Hemoglobin A1c > 14.0 H Calculated Osmolality 279 283 Lactic Acid 1.6 Calcium 8.0 L 8.0 L Corrected Calcium 8.8 9.0 Phosphorus 3.6 Magnesium 1.8 1.9 Total Bilirubin 0.6 0.6 AST 21 16 ALT 14 11 Alkaline Phosphatase 212 H 196 H Troponin I < 0.002 C-Reactive Prot, Quant 23.4 H Total Protein 5.8 5.6 L Albumin 3.0 L 2.8 L Globulin 2.8 2.8 Albumin/Globulin Ratio 1.1 L 1.0 L Triglycerides 162 H Cholesterol 88 L LDL Cholesterol, Calc 51 HDL Cholesterol < 5 L Cholesterol/HDL Ratio 17.0 H Lipase 25 Beta-Hydroxybutyrate/Acetoacetate 5.4 H Procalcitonin 5.33 H Acetaminophen < 2.0 L ABG Interpretation ABG results: 09/16/25 20:09 VBG pH 7.50 VBG pCO2 25 L D VBG pO2 83 H VBG Base Excess -3 Quality Measures Quality Measures sepsis Current suspected stage: ruled out Possible source: skin/soft tissue and wound Blood cultures ordered: yes Antibiotic ordered: Yes Assessment & Plan Assessment Current Active Medications: Generic Name Dose Route Start Last Admin Trade Name Freq PRN Reason Stop Dose Admin Acetaminophen 650 mg 09/16/25 20:08 Acetaminophen 325 Mg Tablet PO 10/16/25 20:07 Q6H PRN Fever >101.5 Acetaminophen 650 mg 09/16/25 20:08 Acetaminophen 325 Mg Tablet PO 10/16/25 20:07 Q6H PRN PAIN SCALE 1-3 (mild Atorvastatin Calcium 10 mg 09/17/25 21:00 Atorvastatin Calcium 10 Mg Tablet PO 10/17/25 20:59 HS RONALD Dextrose 25 ml 09/16/25 20:53 Dextrose 50%-Water Inj 50 Ml Syringe IV 10/16/25 20:52 Q15MIN PRN BG 50-70 responsive npo pt Dextrose 50 ml 09/16/25 20:53 Dextrose 50%-Water Inj 50 Ml Syringe IV 10/16/25 20:52 Q15MIN PRN BG <50 OR BG <70 & pt unresponsive Glucagon 1 mg 09/16/25 20:53 Glucagon Inj 1 Mg Vial IM Q15MIN PRN BG <70, and no IV access Heparin Sodium (Porcine) 5,000 unit 09/16/25 21:00 09/17/25 08:06 Heparin Sod Inj 5000 Unit/Ml Vial SC 09/30/25 20:59 5,000 unit BID RONALD Administration Sodium Chloride 1,000 mls @ 75 mls/hr 09/16/25 21:06 09/16/25 22:55 Ns IV 09/17/25 23:45 75 mls/hr .[id number] RONALD Administration Vancomycin HCl/Dextrose 250 mls @ 120 mls/hr 09/17/25 07:30 09/17/25 08:05 Vancomycin/D5w 1,250 Mg Ivpb IV 09/24/25 07:29 120 mls/hr Q8HR RONALD Administration Protocol Potassium Chloride 10 meq in 100 mls @ 100 mls/hr 09/17/25 07:30 09/17/25 10:35 Kcl Ivpb IV 09/17/25 11:29 100 mls/hr Q1H RONALD Administration Ceftriaxone Sodium/Dextrose 2 gm in 50 mls @ 100 mls/hr 09/17/25 09:30 09/17/25 10:35 Rocephin/D5w 2gm IV 09/24/25 09:29 100 mls/hr QDAY RONALD Administration Insulin Degludec 65 unit 09/17/25 21:00 Insulin Degludec 5 Unit/0.05 Ml (Per 5 Units) SC 10/17/25 20:59 DAILY@2100 [facility] Insulin Human Lispro 0 unit 09/16/25 21:00 09/17/25 10:00 Insulin Lispro (Admelog) 1 Unit/0.01 Ml Unit SC 10/16/25 20:59 4 unit Q6H RONALD Administration Protocol Morphine Sulfate 2 mg 09/16/25 20:08 09/17/25 08:06 Morphine Sulf Inj 4 Mg/Ml Vial IVP 09/21/25 20:07 2 mg Q6HR PRN Administration PAIN SCALE 7-10 (Severe Ondansetron HCl 4 mg 09/16/25 20:08 09/17/25 08:12 Ondansetron Inj 2 Mg/Ml Inj 2 Ml IVP 10/16/25 20:07 4 mg Q6H PRN Administration NAUSEA OR VOMITING Protocol Pharmacy Consult 1 each 09/17/25 09:00 Vancomycin Pharmacy To Dose 1 Each Each IV 10/17/25 08:59 QDAY PRN PROTOCOL Plan 40-year-old male with past medical history of hypertension, diabetes, hyperlipidemia presented to the ED with complaint of left foot redness, swelling, pain since 3 days associated with fever, chills,vomiting and Diarrhea. He was admitted for MSSA secondary to Left foot Osteomyelitis. #MSSA bacteremia 2/2 #Left foot osteomyelitis. History of right foot osteomyelitis 1 year ago, diabetes, history of trauma to the left foot on 09/09. Fevers, chills, vomiting, diarrhea, decreased appetite. Pulse rate 125, temperature 100.7 WBC 29.2 with left shift, Pro-Frederick 5.33, ESR 78. Blood cultures from 09/14 showed staph aureus Blood culture from 09/16 prelim showing GPC Repeat CT scan of the left foot showing left distal fifth metatarsal osteomyelitis pain concern for soft tissue infection with gas-forming organisms. Plan - Gen surgery, Dr. Tafoya, performed incision and drainage of abscesses at multiple sites on the left foot (distal lateral, heel lateral, heel medial, and distal medial), excision of necrotic skin. Four fluctuant areas containing pus. Total pus drained 40 cc. Patient tolerated procedure well. - Pt continues on IV CTX 2g and Vanc. - Ordered echo Doppler to see if any possible source of this septic emboli in view of his bacteremia - PICC line insertion tomorrow - Patient will need 6wks of IV abx - Wound care #T2DM Initial blood glucose levels are 399, BHB 5.4 with normal anion gap. - insulin Degludec 65 units - step 3 of sliding scale. ?Aiming for stricter blood glucose control. ?Educated on the footcare. #Hypertension. Currently normotensive . ?Resume his home medication lisinopril 20 mg at later time when appropriate. #Hyperlipidemia Starting on his home medication atorvastatin 10 mg Continue to monitor. #Peripheral neuropathy He stopped taking gabapentin at his home. ?Continue to monitor. Health Maintenance: Diet: low carb consistent GI prophylaxis: none DVT prophylaxis: heparin 5000 BID Antibiotics: CTX and Vanc CODE STATUS: FULL Disposition: Tele Case discussed with my attending Dr. Duran, and senior resident, Dr. Cristiano Rivera MD PGY-1
--- NOTE | 2025-09-17 12:06 | PC.NURSE ---
PATIENT TRANSFER TO OR ON HOSPITAL BED BY NURSING STAFF. PT ALERT AND ORIENTED X4.
--- NOTE | 2025-09-17 12:57 | SUR.PHASEI ---
pt received to pacu bay 1. vss. breathing even and unlabored. dressing to left foot cdi. report from nurse cierra and dr shah.
--- NOTE | 2025-09-17 13:01 | ESOP_ITS ---
Date of Procedure 09/17/25 Pre Op Diagnosis Left foot osteomyelitis with abscesses Post Op Diagnosis Same Procedure Incision and drainage of left foot abscess Findings Left foot abscesses at the distal lateral surface, heel x2 and medial distal surface Procedure Description After discussion of risks and benefits, patient was brought to the operating room and general anesthesia was induced. He had already received preoperative antibiotics and was prepped and draped in the usual sterile fashion. After timeout the bulla at the left distal lateral foot was first addressed by incising with a #15 blade. There was immediate return of serous fluid. The skin underneath was then incised again with a #15 blade and there was return of pus from which a culture was taken. The wound was probed to break up any loculations and approximately 20 cc of pus was removed from this area. Attention was then turned to the heel where there was already an open wound at the lateral aspect draining pus. I extended this pre-existing wound with a #15 blade and probed for any loculations. There was minimal pus in this area. Also on the heel the skin was necrotic and so I removed a portion of it. At the medial aspect of the heel the skin was quite fluctuant so I made another incision with a 15 blade and probed the wound for any loculations. Ap proximately 10 cc of pus was removed from this area. Additionally on the distal medial surface of the foot there was a area with necrotic skin that was fluctuant. I made another incision with a 15 blade and approximately 10 cc of pus was removed from this area. All 4 wounds were irrigated and hemostasis was achieved with electrocautery. Wounds were packed with 1 inch iodoform packing and covered with Adaptic, fluffs and a Kerlix roll. Patient was extubated and brought to PACU in stable condition Pathology / specimen Other (Left foot abscess culture) Estimated Blood Loss 20 Surgeon Faby Tafoya MD Surgical Staff Operation Date: 09/17/25 12:30 Case Staff Anesthesiologist: Jason Hess RNjde developer: Murphy Boyd
--- NOTE | 2025-09-17 13:05 | SUR.OPER ---
Intake IV fluids 300 EBL 20
--- NOTE | 2025-09-17 13:27 | SUR.PHASEI ---
report called to nurse connolly. pt transported to room via bed. vss. breathing even and unlabored. denies pain and nausea. dressing remains cdi.
[2025-09-17 14:11] LABS: Albumin, Serum 2.6 gm/dL (3.5-5.0); Anion Gap 8 (7-16); BUN/Creatinine Ratio 30 Ratio (12-20); Blood Urea Nitrogen 15 mg/dL (9-23); Calcium 7.3 mg/dL (8.3-10.6); Calcium (Corrected) 8.4 mg/dL (8.5-10.1); Carbon Dioxide 26.6 mMol/L (20.0-31.0); Chloride 100 mMol/L (98-107); Creatinine (Component) 0.5 mg/dL (0.6-1.3); Estimated Creatinine Clearance 276.0 mL/min (>60); Glucose 242 mg/dL (74-106); Osmolality,Calculated 278 (275-295); Phosphorous 3.6 mg/dL (2.4-5.1); Potassium 3.9 mMol/L (3.4-5.1); Sodium 135 mMol/L (136-145); eGFR > 60 See Note
--- NOTE | 2025-09-17 16:06 | PC.SS ---
Rounding note: On IV antibiotics, Surgery following patient. Will need Home Health for IV antibiotics. 40YO Male, reason for visit: OSTEOMYELITIS. ? Sql Database Developer attempted to meet with patient at bedside However, patient was unable to provide information. Sql Database Developer contacted patient?s spouse Georgie Patel. Role and purpose of today?s contact was explained. Patient?s spouse confirmed patient?s demographic information. She reports patient requires maximum assistance with ADLs and is in the process of becoming patient?s SS caregiver. Patient?s spouse Georgie stated she is patient?s primary medical surrogate decisionmaker. Patient ambulates independently. PCP: Damon Ortega. PHARMACY: [facility]. Per spouse, patient is to return home when medically clear. Spouse Georgie is requesting walker for patient due to him being a fall risk. Sql Database Developer informed spouse doctor or PT would need to make recommendation for DME in order for SS to request DME. Next of kin: Spouse Georgie Patel [phone] Discharge plan: Home, parent to transport.
--- NOTE | 2025-09-17 17:16 | PC.NURSE ---
DR. LOPEZ MADE AWARE PTS BS 344. ORDER RECEIVED, READ BACK AND CARRIED OUT.
[2025-09-17] MEDS: INSULIN LISPRO (AdmeLOG) 1 UNIT/0.01 ML UNIT 5 UNIT SC (17:30)
--- NOTE | 2025-09-17 17:56 | PC.NURSE ---
PER DR. JOHN IQBAL TO GIVE ANOTHER 1000 ML OF NS AT 75ML/HR. ORDER RECEIVED READ BACK AND CARRIED OUT.
[2025-09-17] MEDS: SODIUM CHLORIDE 0.9% 1000 ML 1,000 ML 75 ML IV ×2 (18:06→20:26)
[2025-09-17] MEDS: ATORVASTATIN CALCIUM 10 MG TABLET PO (20:27)
[2025-09-17] MEDS: INSULIN DEGLUDEC 5 UNIT/0.05 ML (PER 5 UNITS) 65 UNIT SC (20:27)
[2025-09-17 21:58] LABS: Vancomycin,Trough 10.8 mcg/mL (5.0-10.0)
[2025-09-18] VITALS (10 sets, daily range): BP systolic 117–138; BP diastolic 68–85; PULSE 108–133; RESP 18–29; TEMP 36.3–38.2; O2SAT 93–98; BMI 36.2
[2025-09-18] MEDS: VANCOMYCIN/D5W 1,250 MG IVPB 250 ML 120 MG IV (05:41)
[2025-09-18 06:06] LABS: Basophils # (Auto) 0.0 Thou/mm3 (0.0-0.2); Basophils % (Auto) 0 % (0-2.5); Eosinophils # (Auto) 0.1 Thou/mm3 (0.0-0.5); Eosinophils % (Auto) 0 % (0-10); Hematocrit 27.1 % (41.0-53.0); Hemoglobin 9.0 g/dL (13.5-16.0); Immature Granulocytes Auto 0.27 Thou/mm3 (0.00-0.00); Lymphocytes # (Auto) 2.2 Thou/mm3 (1.0-4.8); Lymphocytes % (Auto) 12 % (10-50); Mean Corpuscular HGB Conc 33.2 g/dl (31.0-37.0); Mean Corpuscular Hemoglobin 28.4 pg (25.0-35.0); Mean Corpuscular Volume 86 fL (80-100); Monocytes # (Auto) 1.5 Thou/mm3 (0.0-0.8); Monocytes % (Auto) 8 % (0-12); Neutrophils # (Auto) 14.2 Thou/mm3 (1.8-7.7); Neutrophils % (Auto) 78 % (37-80); Nucleated Red Blood Cell # 0.00 Thou/mm3 (0.00-0.00); Nucleated Red Blood Cell % 0 /100 WBC (0); Platelet Count 269 Thou/mm3 (140-440); RDW Standard Deviation 45.1 fL (35.1-43.9); Red Blood Count 3.17 Miln/mm3 (4.50-5.90); White Blood Count 18.3 Thou/mm3 (3.8-10.6)
[2025-09-18 06:45] LABS: Alanine Aminotransferase 9 U/L (10-49); Albumin, Serum 2.5 gm/dL (3.5-5.0); Albumin/Globulin Ratio 0.8 (1.2-2.2); Alkaline Phosphatase 168 U/L (46-116); Anion Gap 9 (7-16); Aspartate Amino Transferase 15 U/L (0-34); BUN/Creatinine Ratio 17 Ratio (12-20); Bilirubin,Total 0.6 mg/dL (0.3-1.2); Blood Urea Nitrogen 12 mg/dL (9-23); Calcium 7.2 mg/dL (8.3-10.6); Calcium (Corrected) 8.4 mg/dL (8.5-10.1); Carbon Dioxide 26.7 mMol/L (20.0-31.0); Chloride 97 mMol/L (98-107); Creatinine (Component) 0.7 mg/dL (0.6-1.3); Estimated Creatinine Clearance 201.4 mL/min (>60); Globulin 3.0 gm/dL (2.3-3.5); Glucose 280 mg/dL (74-106); Magnesium 1.7 mg/dL (1.6-2.6); Osmolality,Calculated 276 (275-295); Phosphorous 3.0 mg/dL (2.4-5.1); Potassium 4.1 mMol/L (3.4-5.1); Sodium 133 mMol/L (136-145); Total Protein 5.5 gm/dL (5.7-8.2); eGFR > 60 See Note
--- NOTE | 2025-09-18 08:00 | XR_ITS ---
Examination: Ultrasound-guided needle placement right basilic vein. Dual-lumen central line placement (PICC line). Fluoroscopy AP chest, portable, single view Exam date and time: July 19, 2025, 1452 hours INDICATIONS: Osteomyelitis, need for long-term intravenous antibiotic therapy A timeout was completed verifying correct patient, procedure, site, positioning Informed consent provided Technique: The patient's site was prepped and draped in sterile fashion. Maximum Sterile Barrier Technique used including cap, mask, sterile gown, sterile gloves, and sterile full body drape. If ultrasound technique used: sterile gel and sterile probe covers. Hand Hygiene performed using proper scrub, soap and water, or alcohol-based hand rub. Site right portable apparatus utilized to confirm patency of the right basilic vein Utilizing ultrasonographic guidance successful 21-gauge needle puncture into the right basilic vein Ultrasound images recorded and stored. 5 cc 1% lidocaine administered for local anesthetic. Successful micropuncture with a 21-gauge needle is performed. 0.18 wire guide is then introduced into the SVC under fluoroscopic guidance. Dual-lumen catheter dilator is then introduced, followed by the catheter in the SVC and proper position under fluoroscopic guidance. Successful aspiration of blood and flushing with heparinized saline is then performed in the 2 venous limbs. The catheter sutured in place. Findings: Under fluoroscopy, the tip of the catheter is in good position in the vena cava. Portable chest x-ray, post line placement is ordered. Estimated blood loss 3 cc The patient tolerated the procedure well and was in stable and satisfactory condition at completion of the procedure Impression: Successful ultrasound-guided needle placement right basilic vein Successful placement of dual lumen central line, percutaneous Fluoroscopy 0.1-minute radiation dose 1.45 mGy 1 spot fluoroscopic [place]. AP chest completion procedure demonstrates satisfactory position central line. May use central line.
[2025-09-18] MEDS: INSULIN LISPRO (AdmeLOG) 1 UNIT/0.01 ML UNIT 10 UNIT SC ×3 (08:13→17:58)
[2025-09-18] MEDS: INSULIN LISPRO (AdmeLOG) 1 UNIT/0.01 ML UNIT SC ×3 (08:13→17:57)
[2025-09-18] MEDS: cefTRIAXone/D5w 2gm 2 GM/50 ML BAG IV (08:14)
--- NOTE | 2025-09-18 10:30 | ESPR_ITS ---
<Statement entered by Sheldon Duran MD - 09/27/25 07:14> I reviewed above note and agree with findings and plans. I have also personally examined the patient with medicine team and went over assessment and plan with medical team including dental intern and resident physician. <Statement entered by Venita Rodriguez MD - 09/18/25 14:52> Patient was seen and examined at bedside. No acute overnight events. Patient blood sugar remains on the high side, I did lispro 10 units 3 times daily with meals on top of the degludec 60 units at bedtime. Currently blood sugar is under control, will continue with same regimen, patient needs tight blood sugar control, continue IV antibiotics with ceftriaxone 2 g daily, vancomycin was switched to doxycycline 10 mg twice daily. Will have a PICC line placement today, patient will need to be discharged to either SNF or home with a home health to continue 6 weeks course of antibiotics. Referral to physical therapy. Anticipate discharge in next 48 hours. I discussed with and supervised the dental intern physician who took care of this patient. I personally saw and examined the patient and discussed the assessment and plan with the entire medicine team, including my attending , I agree with the assessment and plan as documented below Venita Rodriguez M.D. PGY-3 Disclaimer: Despite multiple revisions, due to the dictation software being used, the document bellow may not be free of grammatical errors including phonetic/typographic errors. However, this does not deter from our commitment to providing health care in the patient's best interest in mind. Documentation for date of: 09/18/25 Subjective Subjective Interval history: Patient is on IV ceftriaxone 2 g IV daily and doxycycline IV 100 mg twice daily. He stopped taking IV vancomycin and IV Zosyn. Pending PICC line placement and echo. His blood glucose level today was 280. Premeal insulin lispro 10 units has been added on top of insulin degludec 65 units SC. Patient's WBC count decreased from 23.6 to 18.3. Pending discharge within 24 to 48 hours. On discharge, he will need to complete 6 weeks course of abx (IV ceftriaxone 1g qd and PO Doxycycline 100mg bid) No Overnight events. Labs reviewed and patient examined at the bedside. Denies chest pain, palpation, SOB, abdominal pain, N/V, fevers or chills. Exam Vital Signs Temp Pulse Resp BP Pulse Ox O2 Del Method O2 Flow Rate 98.3 F 110 H 24 H 119/76 98 Room Air 4 09/18/25 08:00 09/18/25 08:00 09/18/25 08:00 09/18/25 08:00 09/18/25 08:00 09/18/25 08:00 09/17/25 13:12 Narrative Exam General: No acute distress, well nourished, AAO x3 Eye: PERRL, EOMI, normal conjunctiva, no scleral icterus HENT: Normocephalic, atraumatic, hearing intact to conversation at normal volume, moist oral mucosa Neck: Supple, non-tender, no JVD, no lymphadenopathy Lungs: Non-labored respirations, symmetric chest rise, Clear to auscultate bilaterally, No wheezing, rhonchi, crackles Heart: Peripheral pulses intact bilaterally, Regular Rate and Rhythm. Abdomen: Soft, non-tender, non-distended, no palpable masses Musculoskeletal/Skin: Right foot: Distal plantar surface shows a dry eschar; no swelling; dorsalis pedis pulse palpable. Left foot: wounds packed and covered with adaptic,fluffs and a kerlix roll. Psychiatric: Cooperative, appropriate mood and affect, Awake and alert, not agitated Neuro: Cranial nerves II-XII grossly intact. Strength 5/5 throughout. Sensations intact to light touch. Objective Labs 09/18/25 05:27 09/18/25 05:27 Labs: Laboratory Results - last 24 hr 09/17/25 09/17/25 09/18/25 13:40 21:13 05:27 WBC 18.3 H D RBC 3.17 L Hgb 9.0 L Hct 27.1 L MCV 86 MCH 28.4 MCHC 33.2 RDW Std Deviation 45.1 H Plt Count 269 Neut % (Auto) 78 Lymph % (Auto) 12 [place] % (Auto) 8 Eos % (Auto) 0 Baso % (Auto) 0 Neut # (Auto) 14.2 H Lymph # (Auto) 2.2 [place] # (Auto) 1.5 H Eos # (Auto) 0.1 Baso # (Auto) 0.0 Immature Gran # (Auto) 0.27 H Absolute Nucleated RBC 0.00 Immature Gran % 2 H Nucleated RBC % 0 Sodium 135 L 133 L Potassium 3.9 4.1 Chloride 100 97 L Carbon Dioxide 26.6 26.7 Anion Gap 8 9 BUN 15 12 Creatinine 0.5 L 0.7 Estim Creat Clear Calc 276.0 201.4 eGFR > 60 > 60 BUN/Creatinine Ratio 30 H 17 Glucose 242 H D 280 H Calculated Osmolality 278 276 Calcium 7.3 L 7.2 L Corrected Calcium 8.4 L 8.4 L Phosphorus 3.6 3.0 Magnesium 1.7 Total Bilirubin 0.6 AST 15 ALT 9 L Alkaline Phosphatase 168 H D Total Protein 5.5 L Albumin 2.6 L 2.5 L Globulin 3.0 Albumin/Globulin Ratio 0.8 L Vancomycin Trough 10.8 H ABG Interpretation ABG results: 09/16/25 20:09 VBG pH 7.50 VBG pCO2 25 L D VBG pO2 83 H VBG Base Excess -3 Quality Measures Quality Measures sepsis Current suspected stage: sepsis Possible source: skin/soft tissue and wound Blood cultures ordered: yes Antibiotic ordered: Yes Assessment & Plan Assessment Current Active Medications: Generic Name Dose Route Start Last Admin Trade Name Freq PRN Reason Stop Dose Admin Acetaminophen 650 mg 09/16/25 20:08 Acetaminophen 325 Mg Tablet PO 10/16/25 20:07 Q6H PRN Fever >101.5 Acetaminophen 650 mg 09/16/25 20:08 Acetaminophen 325 Mg Tablet PO 10/16/25 20:07 Q6H PRN PAIN SCALE 1-3 (mild Atorvastatin Calcium 10 mg 09/17/25 21:00 09/17/25 20:27 Atorvastatin Calcium 10 Mg Tablet PO 10/17/25 20:59 10 mg HS RONALD Administration Dextrose 25 ml 09/16/25 20:53 Dextrose 50%-Water Inj 50 Ml Syringe IV 10/16/25 20:52 Q15MIN PRN BG 50-70 responsive npo pt Dextrose 50 ml 09/16/25 20:53 Dextrose 50%-Water Inj 50 Ml Syringe IV 10/16/25 20:52 Q15MIN PRN BG <50 OR BG <70 & pt unresponsive Glucagon 1 mg 09/16/25 20:53 Glucagon Inj 1 Mg Vial IM Q15MIN PRN BG <70, and no IV access Heparin Sodium (Porcine) 5,000 unit 09/16/25 21:00 09/18/25 08:14 Heparin Sod Inj 5000 Unit/Ml Vial SC 09/30/25 20:59 Not Given BID RONALD Ceftriaxone Sodium/Dextrose 2 gm in 50 mls @ 100 mls/hr 09/17/25 09:30 09/18/25 08:14 Rocephin/D5w 2gm IV 09/24/25 09:29 100 mls/hr QDAY RONALD Administration Doxycycline Hyclate 100 mg/ 100 mls @ 100 mls/hr 09/18/25 21:00 Sodium Chloride IV 09/25/25 20:59 BID [facility] Insulin Degludec 65 unit 09/17/25 21:00 09/17/25 20:27 Insulin Degludec 5 Unit/0.05 Ml (Per 5 Units) SC 10/17/25 20:59 65 unit DAILY@2100 [facility] Administration Insulin Human Lispro 0 unit 09/17/25 17:00 09/18/25 08:13 Insulin Lispro (Admelog) 1 Unit/0.01 Ml Unit [place] 10/17/25 16:59 5 unit AC [facility] Administration Protocol Insulin Human Lispro 10 unit 09/18/25 11:30 Insulin Lispro (Admelog) 1 Unit/0.01 Ml Unit [place] 10/18/25 11:29 AC [facility] Morphine Sulfate 2 mg 09/16/25 20:08 09/17/25 22:13 Morphine Sulf Inj 4 Mg/Ml Vial IVP 09/21/25 20:07 2 mg Q6HR PRN Administration PAIN SCALE 7-10 (Severe Ondansetron HCl 4 mg 09/16/25 20:08 09/17/25 08:12 Ondansetron Inj 2 Mg/Ml Inj 2 Ml IVP 10/16/25 20:07 4 mg Q6H PRN Administration NAUSEA OR VOMITING Protocol Plan 40-year-old male with past medical history of hypertension, diabetes, hyperlipidemia presented to the ED with complaint of left foot redness, swelling, pain since 3 days associated with fever, chills,vomiting and Diarrhea. He was admitted for MSSA secondary to Left foot Osteomyelitis. #MSSA bacteremia 2/ #Left foot osteomyelitis. History of right foot osteomyelitis 1 year ago, diabetes, history of trauma to the left foot on 09/09. Fevers, chills, vomiting, diarrhea, decreased appetite. Pulse rate 125, temperature 100.7 WBC 29.2 with left shift, Pro-[place] 5.33, ESR 78. -Blood cultures from 09/14 showed staph aureus -Blood culture from 09/16 prelim showing GPC Repeat CT scan of the left foot showing left distal fifth metatarsal osteomyelitis pain concern for soft tissue infection with gas-forming organisms. Plan - Gen surgery, Dr. Tafoya, performed incision and drainage of abscesses at multiple sites on the left foot (distal lateral, heel lateral, heel medial, and distal medial), excision of necrotic skin. Four fluctuant areas containing pus. Total pus drained 40 cc. Patient tolerated procedure well. - Patient is on IV ceftriaxone 2 g IV daily and doxycycline IV 100 mg twice daily. Patient has stopped taking IV vancomycin and IV Zosyn. - Ordered echo Doppler to see if any possible source of this septic emboli in view of his bacteremia - Pending PICC line insertion - On discharge, he will need to complete 6 weeks course of abx (IV ceftriaxone 1g qd and PO Doxycycline 100mg bid) - Wound care #T2DM -Initial blood glucose levels are 399, BHB 5.4 with normal anion gap. -Glucose level 09/18: 280 Plan: -insulin Degludec 65 units -Premeal insulin lispro 10 units has been added -step 3 of sliding scale. -Aiming for stricter blood glucose control. -Educated on the footcare. #Hypertension. Currently normotensive . ?Resume his home medication lisinopril 20 mg at later time when appropriate. #Hyperlipidemia Starting on his home medication atorvastatin 10 mg Continue to monitor. #Peripheral neuropathy He stopped taking gabapentin at his home. ?Continue to monitor. Health Maintenance: Diet: low carb consistent GI prophylaxis: none DVT prophylaxis: heparin 5000 BID CODE STATUS: FULL Disposition: Tele Assessment and plan discussed with my attending physician Dr. Duran and Dr. Rodriguez (PGY-3) Dr. De La Torre (PGY-1) - Internal medicine resident
--- NOTE | 2025-09-18 11:03 | PC.SS ---
Addendum entered by Joy Canales 09/18/25 15:55: SS met with to discuss d/c options for SNF vs Home with HH. Pt refused SNF and is adamant he is not going to SNF. SS called [facility] and spoke to Arminda who explained pt is established with PCP, Dr. Damon Ortega and his last follow up was March 2025. SS provided patient's current phone# . SS has informed transfer nurseShannan. will help care for pt at home. Patient's address is: [address] [place] [address] [place] [id number] Original Note: Follow up note: Pt is requiring IV antibiotic, Rocephin 2grm 1 X day until Oct 30, 2025. SS has spoken to who explained pt will establish care with Dr. Damon Ortega. SS called [facility] and spoke to Joanna, who explained pt is not established with PCP. has scheduled pt an appointment with Damon Ortega for August at 9:15am. SS requested appointment to be done by phone but Joanna explained phone appointments are not guaranteed (clinicians discretion). Transfer nurseShannan is aware.
[2025-09-18] MEDS: MORPHINE SULF INJ 4 MG/ML VIAL 2 MG IVP (13:27)
--- NOTE | 2025-09-18 15:26 | PC.NURSE ---
Dr. Tafoya at bedside @1330, performed 1st dressing change on left foot, waiting for dressing change orders from .
[2025-09-18] MEDS: HEPARIN SOD LOCK SYR 100 UNIT/ML 500 UNIT STFIELD (15:30)
--- NOTE | 2025-09-18 15:30 | PC.PT ---
Attempt to initiate PT evaluatio at 1520, but patient is at IR for a PICC line insertion. Will try again tomorrow.
[2025-09-18] MEDS: LIDOCAINE INJ PF 1% 30 ML VIAL INFL (15:35)
--- NOTE | 2025-09-18 16:14 | PC.NURSE ---
Patient taken back to room 263 post PICC line placment. No acute changes or deviations from baseline.
[2025-09-18] MEDS: ACETAMINOPHEN 325 MG TABLET 650 MG PO (16:31)
[2025-09-18] MEDS: RINGERS LACTATED 1000 ML 1,000 ML 100 ML IV (16:32)
--- NOTE | 2025-09-18 16:50 | ESPR_ITS ---
Documentation for date of: 09/18/25 Subjective Subjective Brief History: 40M with HTN, HLD, DMII (A1c >14) who presented 09/16 with left foot pain, redness and swelling. Pt states he hurt his foot last week and since then developed worsening pain, now with purulent drainage associated with fever and chills. In ER his WBC was [address] showed a soft tissue infection with gas- forming organism and early osteomyelitis in the distal 5th metatarsal PMH: HTN, HLD, DMII PSHx: I&D of right foot (he follows at our [facility] for this), left knee surgery Meds: No antiplt or anticoagulation Allergies: NKDA Narrative: Patient reports feeling overall the same today, not having pain as he has neuropathy, but having fever up to 100.8, WBC 18 from 23 Exam Vital Signs Temp Pulse Resp BP Pulse Ox O2 Del Method O2 Flow Rate 100.8 F H 122 H 26 H 128/81 98 Nasal Cannula 3 09/18/25 16:31 09/18/25 16:00 09/18/25 16:00 09/18/25 16:00 09/18/25 16:00 09/18/25 16:00 09/18/25 16:00 Constitutional Constitutional: no acute distress Routine Respiratory Exam Respiratory: Present no resp distress Routine Extremities Exam Comments: Left foot diffusely swollen and warm, incisions repacked with half-inch iodoform packing cover with gauze, abdominal pad and Kerlix Results Results: Laboratory Laboratory results: results reviewed Assessment & Plan Plan 40M with HTN, HLD, DMII (A1c >14) presenting with left foot cellulitis, osteomyelitis of the distal 5th metatarsal as well as purulent drainage, s/p I&D 09/17, with persistent fever and swelling Will repeat I&D and excisional debridement tomorrow 09/17 NPO after MN PROCEDURES: Procedures Incision and drainage of left foot abscess
[2025-09-18 16:56] LABS: Lactate (Lactic Acid) 1.4 mMol/L (0.4-2.0)
[2025-09-18 17:02] LABS: Basophils # (Auto) 0.1 Thou/mm3 (0.0-0.2); Basophils % (Auto) 0 % (0-2.5); Eosinophils # (Auto) 0.1 Thou/mm3 (0.0-0.5); Eosinophils % (Auto) 0 % (0-10); Hematocrit 27.0 % (41.0-53.0); Hemoglobin 8.9 g/dL (13.5-16.0); Immature Granulocytes Auto 0.22 Thou/mm3 (0.00-0.00); Lymphocytes # (Auto) 1.8 Thou/mm3 (1.0-4.8); Lymphocytes % (Auto) 11 % (10-50); Mean Corpuscular HGB Conc 33.0 g/dl (31.0-37.0); Mean Corpuscular Hemoglobin 28.3 pg (25.0-35.0); Mean Corpuscular Volume 86 fL (80-100); Monocytes # (Auto) 1.5 Thou/mm3 (0.0-0.8); Monocytes % (Auto) 9 % (0-12); Neutrophils # (Auto) 13.4 Thou/mm3 (1.8-7.7); Neutrophils % (Auto) 79 % (37-80); Nucleated Red Blood Cell # 0.00 Thou/mm3 (0.00-0.00); Nucleated Red Blood Cell % 0 /100 WBC (0); Platelet Count 323 Thou/mm3 (140-440); RDW Standard Deviation 46.9 fL (35.1-43.9); Red Blood Count 3.14 Miln/mm3 (4.50-5.90); White Blood Count 17.0 Thou/mm3 (3.8-10.6)
[2025-09-18 18:24] LABS: Collection Type, Urine Clean Catch; Squamous Epithelial Cell,Urine 0 /hpf (0-5)
[2025-09-18 18:38] LABS: Amorphous Crystals,Urine Present (Absent); Bacteria,Urine Rare; Bilirubin,Urine Negative (Negative); Blood,Urine 1+ (Negative); Clarity,Urine Clear (Clear/Hazy); Color,Urine Yellow (Lt Yel-Yel); Glucose, Urine 4+ (Negative); Ketones,Urine Negative (Negative); Leukocyte Esterase,Urine Negative (Negative); Nitrite,Urine Negative (Negative); PH,Urine 5.5 (5.0-7.0); Protein,Urine Trace (Neg - Trace); RBC,Urine 5 /hpf (0-3); Specific Gravity,Urine 1.013 (1.001-1.035); Urobilinogen,Urine 6.0 mg/dL (0.0-1.0); WBC,Urine 2 /hpf (0-5)
[2025-09-18] MEDS: DOXYCYCLINE INJ 100 MG in SODIUM CHLORIDE 0.9% (POP) 100 ML IV (20:28)
[2025-09-18] MEDS: ATORVASTATIN CALCIUM 10 MG TABLET PO (20:28)
[2025-09-18] MEDS: HEPARIN SOD INJ 5000 UNIT/ML VIAL SC (20:28)
[2025-09-18] MEDS: INSULIN DEGLUDEC 5 UNIT/0.05 ML (PER 5 UNITS) 65 UNIT SC (20:40)
[2025-09-19] VITALS (14 sets, daily range): BP systolic 97–157; BP diastolic 60–88; PULSE 76–111; RESP 12–20; TEMP 36.2–38.6; O2SAT 90–100; BMI 36.3
[2025-09-19 06:01] LABS: Basophils # (Auto) 0.0 Thou/mm3 (0.0-0.2); Basophils % (Auto) 0 % (0-2.5); Eosinophils # (Auto) 0.1 Thou/mm3 (0.0-0.5); Eosinophils % (Auto) 1 % (0-10); Hematocrit 25.2 % (41.0-53.0); Immature Granulocytes Auto 0.30 Thou/mm3 (0.00-0.00); Lymphocytes # (Auto) 1.9 Thou/mm3 (1.0-4.8); Lymphocytes % (Auto) 13 % (10-50); Mean Corpuscular HGB Conc 34.1 g/dl (31.0-37.0); Mean Corpuscular Hemoglobin 29.0 pg (25.0-35.0); Mean Corpuscular Volume 85 fL (80-100); Monocytes # (Auto) 1.4 Thou/mm3 (0.0-0.8); Monocytes % (Auto) 9 % (0-12); Neutrophils # (Auto) 11.0 Thou/mm3 (1.8-7.7); Neutrophils % (Auto) 75 % (37-80); Nucleated Red Blood Cell # 0.00 Thou/mm3 (0.00-0.00); Nucleated Red Blood Cell % 0 /100 WBC (0); Platelet Count 329 Thou/mm3 (140-440); RDW Standard Deviation 45.2 fL (35.1-43.9); Red Blood Count 2.97 Miln/mm3 (4.50-5.90); White Blood Count 14.7 Thou/mm3 (3.8-10.6)
[2025-09-19 06:04] LABS: Hemoglobin 8.6 g/dL (13.5-16.0)
[2025-09-19 06:30] LABS: Alanine Aminotransferase 13 U/L (10-49); Albumin, Serum 2.5 gm/dL (3.5-5.0); Albumin/Globulin Ratio 0.8 (1.2-2.2); Alkaline Phosphatase 171 U/L (46-116); Anion Gap 10 (7-16); Aspartate Amino Transferase 37 U/L (0-34); BUN/Creatinine Ratio 16 Ratio (12-20); Bilirubin,Total 0.7 mg/dL (0.3-1.2); Blood Urea Nitrogen 8 mg/dL (9-23); Calcium 7.3 mg/dL (8.3-10.6); Calcium (Corrected) 8.5 mg/dL (8.5-10.1); Carbon Dioxide 26.2 mMol/L (20.0-31.0); Chloride 101 mMol/L (98-107); Creatinine (Component) 0.5 mg/dL (0.6-1.3); Estimated Creatinine Clearance 282.4 mL/min (>60); Globulin 3.1 gm/dL (2.3-3.5); Glucose 157 mg/dL (74-106); Magnesium 1.8 mg/dL (1.6-2.6); Osmolality,Calculated 275 (275-295); Phosphorous 3.0 mg/dL (2.4-5.1); Potassium 3.6 mMol/L (3.4-5.1); Sodium 137 mMol/L (136-145); Total Protein 5.6 gm/dL (5.7-8.2); eGFR > 60 See Note
[2025-09-19] MEDS: INSULIN LISPRO (AdmeLOG) 1 UNIT/0.01 ML UNIT 10 UNIT SC (08:07)
[2025-09-19] MEDS: HEPARIN SOD INJ 5000 UNIT/ML VIAL SC ×2 (08:07→20:14)
[2025-09-19] MEDS: cefTRIAXone/D5w 2gm 2 GM/50 ML BAG IV (08:09)
[2025-09-19] MEDS: DOXYCYCLINE INJ 100 MG in SODIUM CHLORIDE 0.9% (POP) 100 ML IV ×2 (08:09→20:13)
--- NOTE | 2025-09-19 08:43 | ESPR_ITS ---
<Statement entered by Venita Rodriguez MD - 09/19/25 16:09> The bedside. No acute overnight events. WBC trending down. Continue to stay on IV antibiotics, surgery following the case, patient will have second I&D today, will follow-up with repeat blood culture. Tight control blood sugar, currently patient is on degludec 65 units at bedtime and insulin lispro 10 units 3 times daily with meals. Continue current regimen,, follow-up with surgery recommendations, patient will have a PT to work with him, most likely patient will need short-term rehabilitation. PICC line is in place, patient will need to complete 6 weeks course of IV antibiotics. I discussed with and supervised the intern retail physician who took care of this patient. I personally saw and examined the patient and discussed the assessment and plan with the entire medicine team, including my attending , I agree with the assessment and plan as documented below Venita Rodriguez M.D. PGY-3 Disclaimer: Despite multiple revisions, due to the dictation software being used, the document bellow may not be free of grammatical errors including phonetic/typographic errors. However, this does not deter from our commitment to providing health care in the patient's best interest in mind. Documentation for date of: 09/19/25 Subjective Subjective Interval history: Patient has been scheduled to received second incision and drainage of the left foot today per general surgery. PICC line has been placed yesterday for long- term antibiotics. Patient continues to take IV ceftriaxone 2 g IV daily and doxycycline IV 100 mg twice daily. Patient's glucose level decreased from 280 to 157. Patient received total of 6 units of insulin lispro on SSI. Currently on insulin degludec 65 units SC and premeal insulin lispro 10 units. Needs Ozempic injection for tighter weight control. [id number] dropped to 90%on Room Air. Patient likely need sleep study outpatient to rule out MARY. Patient's WBC decreasing from 17.0 to 14.7. Yesterday 09/18, he had an episode of fever 100.8 F. Stat lactic acid level showed 1.4. Third Blood culture 09/18 still pending. ECHO (09/16/2025): Normal left ventricular size and function. Approximate ejection fraction is 55-60%. Normal right ventricular size and function. Trace mitral and trace tricuspid regurgitation noted. No pericardial effusion. [id number] dropped to 90%on Room Air. Patient likely require sleep study outpatient. No Overnight events. Labs reviewed and patient examined at the bedside. Denies chest pain, palpation, SOB, abdominal pain, N/V, fevers or chills. Exam Vital Signs Temp Pulse Resp BP Pulse Ox O2 Del Method O2 Flow Rate 98.8 F 106 H 13 120/72 90 L Room Air 3 09/19/25 07:58 09/19/25 07:58 09/19/25 07:58 09/19/25 07:58 09/19/25 07:58 09/19/25 07:58 09/18/25 16:00 Narrative Exam General: No acute distress, well nourished, AAO x3 Eye: PERRL, EOMI, normal conjunctiva, no scleral icterus HENT: Normocephalic, atraumatic, hearing intact to conversation at normal volume, moist oral mucosa Neck: Supple, non-tender, no JVD, no lymphadenopathy Lungs: Non-labored respirations, symmetric chest rise, Clear to auscultate bilaterally, No wheezing, rhonchi, crackles Heart: Peripheral pulses intact bilaterally, Regular Rate and Rhythm. Abdomen: Soft, non-tender, non-distended, no palpable masses Musculoskeletal/Skin: Right foot: Distal plantar surface shows a dry eschar; no swelling; dorsalis pedis pulse palpable. Left foot: wounds packed and covered with adaptic,fluffs and a kerlix roll. Psychiatric: Cooperative, appropriate mood and affect, Awake and alert, not agitated Neuro: Cranial nerves II-XII grossly intact. Strength 5/5 throughout. Sensations intact to light touch. Objective Labs 09/20/25 05:40 09/20/25 05:40 Labs: Laboratory Results - last 24 hr 09/18/25 09/18/25 09/19/25 16:45 17:46 05:16 WBC 17.0 H 14.7 H RBC 3.14 L 2.97 L Hgb 8.9 L 8.6 L Hct 27.0 L 25.2 L MCV 86 85 MCH 28.3 29.0 MCHC 33.0 34.1 RDW Std Deviation 46.9 H 45.2 H Plt Count 323 D 329 Neut % (Auto) 79 75 Lymph % (Auto) 11 13 [place] % (Auto) 9 9 Eos % (Auto) 0 1 Baso % (Auto) 0 0 Neut # (Auto) 13.4 H 11.0 H Lymph # (Auto) 1.8 1.9 [place] # (Auto) 1.5 H 1.4 H Eos # (Auto) 0.1 0.1 Baso # (Auto) 0.1 0.0 Immature Gran # (Auto) 0.22 H 0.30 H Absolute Nucleated RBC 0.00 0.00 Immature Gran % 1 H 2 H Nucleated RBC % 0 0 Sodium 137 Potassium 3.6 D Chloride 101 Carbon Dioxide 26.2 Anion Gap 10 BUN 8 L Creatinine 0.5 L Estim Creat Clear Calc 282.4 eGFR > 60 BUN/Creatinine Ratio 16 Glucose 157 H D Calculated Osmolality 275 Lactic Acid 1.4 Calcium 7.3 L Corrected Calcium 8.5 Phosphorus 3.0 Magnesium 1.8 Total Bilirubin 0.7 AST 37 H ALT 13 Alkaline Phosphatase 171 H Total Protein 5.6 L Albumin 2.5 L Globulin 3.1 Albumin/Globulin Ratio 0.8 L Ur Collection Type Clean Catch Urine Color Yellow Urine Clarity Clear Urine pH 5.5 Ur Specific [place] 1.013 Urine Protein Trace Urine Glucose (UA) 4+ A Urine Ketones Negative Urine Blood 1+ A Urine Nitrite Negative Urine Bilirubin Negative Urine Urobilinogen (Auto) 6.0 Ur Leukocyte Esterase Negative Urine RBC 5 H Urine WBC 2 Ur Squamous Epith Cells 0 Amorphous Crystals Present A Urine Bacteria Rare ABG Interpretation ABG results: 09/16/25 20:09 VBG pH 7.50 VBG pCO2 25 L D VBG pO2 83 H VBG Base Excess -3 Quality Measures Quality Measures sepsis Current suspected stage: sepsis Possible source: skin/soft tissue and wound Blood cultures ordered: yes Antibiotic ordered: Yes Assessment & Plan Assessment Current Active Medications: Generic Name Dose Route Start Last Admin Trade Name Freq PRN Reason Stop Dose Admin Acetaminophen 650 mg 09/16/25 20:08 09/18/25 16:31 Acetaminophen 325 Mg Tablet PO 10/16/25 20:07 650 mg Q6H PRN Administration Fever >101.5 Acetaminophen 650 mg 09/16/25 20:08 Acetaminophen 325 Mg Tablet PO 10/16/25 20:07 Q6H PRN PAIN SCALE 1-3 (mild Atorvastatin Calcium 10 mg 09/17/25 21:00 09/18/25 20:28 Atorvastatin Calcium 10 Mg Tablet PO 10/17/25 20:59 10 mg HS RONALD Administration Dextrose 25 ml 09/16/25 20:53 Dextrose 50%-Water Inj 50 Ml Syringe IV 10/16/25 20:52 Q15MIN PRN BG 50-70 responsive npo pt Dextrose 50 ml 09/16/25 20:53 Dextrose 50%-Water Inj 50 Ml Syringe IV 10/16/25 20:52 Q15MIN PRN BG <50 OR BG <70 & pt unresponsive Glucagon 1 mg 09/16/25 20:53 Glucagon Inj 1 Mg Vial IM Q15MIN PRN BG <70, and no IV access Heparin Sodium (Porcine) 5,000 unit 09/16/25 21:00 09/19/25 08:07 Heparin Sod Inj 5000 Unit/Ml Vial SC 09/30/25 20:59 5,000 unit BID RONALD Administration Ceftriaxone Sodium/Dextrose 2 gm in 50 mls @ 100 mls/hr 09/17/25 09:30 09/19/25 08:09 Rocephin/D5w 2gm IV 09/24/25 09:29 100 mls/hr QDAY RONALD Administration Doxycycline Hyclate 100 mg/ 100 mls @ 100 mls/hr 09/18/25 21:00 09/19/25 08:09 Sodium Chloride IV 09/25/25 20:59 100 mls/hr BID RONALD Administration Insulin Degludec 65 unit 09/17/25 21:00 09/18/25 20:40 Insulin Degludec 5 Unit/0.05 Ml (Per 5 Units) SC 10/17/25 20:59 65 unit DAILY@2100 RONALD Administration Insulin Human Lispro 0 unit 09/17/25 17:00 09/19/25 07:51 Insulin Lispro (Admelog) 1 Unit/0.01 Ml Unit SC 10/17/25 16:59 Not Given AC [facility] Protocol Insulin Human Lispro 10 unit 09/18/25 11:30 09/19/25 08:07 Insulin Lispro (Admelog) 1 Unit/0.01 Ml Unit SC 10/18/25 11:29 10 unit AC RONALD Administration Morphine Sulfate 2 mg 09/16/25 20:08 09/18/25 13:27 Morphine Sulf Inj 4 Mg/Ml Vial IVP 09/21/25 20:07 2 mg Q6HR PRN Administration PAIN SCALE 7-10 (Severe Ondansetron HCl 4 mg 09/16/25 20:08 09/17/25 08:12 Ondansetron Inj 2 Mg/Ml Inj 2 Ml IVP 10/16/25 20:07 4 mg Q6H PRN Administration NAUSEA OR VOMITING Protocol Plan 40-year-old male with past medical history of hypertension, diabetes, hyperlipidemia presented to the ED with complaint of left foot redness, swelling, pain since 3 days associated with fever, chills,vomiting and Diarrhea. He was admitted for MSSA secondary to Left foot Osteomyelitis. #MSSA bacteremia / #Left foot osteomyelitis. History of right foot osteomyelitis 1 year ago, diabetes, history of trauma to the left foot on 09/09. Fevers, chills, vomiting, diarrhea, decreased appetite. Pulse rate 125, temperature 100.7 WBC 29.2 with left shift, [place] 5.33, ESR 78. -Blood Cx: 1st Blood Culture 09/14: Staph Aureus x1, 2nd Blood Culture 09/16: Staph Aureus x2, 3rd blood culture 09/18: Pending -Blood culture from 09/16 prelim showing GPC Repeat CT scan of the left foot showing left distal fifth metatarsal osteomyelitis pain concern for soft tissue infection with gas-forming organisms. -PICC line placed 09/18 -Gen surgery, Dr. Tafoya, performed incision and drainage of abscesses at multiple sites on the left foot (distal lateral, heel lateral, heel medial, and distal medial), excision of necrotic skin. Four fluctuant areas containing pus. Total pus drained 40 cc. Patient tolerated procedure well. -ECHO (09/16/2025): Normal left ventricular size and function. Approximate ejection fraction is 55-60%. Normal right ventricular size and function. Trace mitral and trace tricuspid regurgitation noted. No pericardial effusion. -Patient has been scheduled to received second incision and drainage of the left foot today per general surgery. Plan - Patient is on IV ceftriaxone 2 g IV daily and doxycycline IV 100 mg twice daily. - On discharge, he will need to complete 6 weeks course of abx (IV ceftriaxone 1g qd and PO Doxycycline 100mg bid) - Wound care #T2DM -Initial blood glucose levels are 399, BHB 5.4 with normal anion gap. -Glucose level 09/18: 280 09/19:157 Plan: -insulin Degludec 65 units -Premeal insulin lispro 10 units has been added -Needs Ozempic injection for tighter weight control. -step 3 of sliding scale. -Aiming for stricter blood glucose control. -Educated on the footcare. #Hypertension. Currently normotensive . ?Resume his home medication lisinopril 20 mg at later time when appropriate. #Hyperlipidemia Starting on his home medication atorvastatin 10 mg Continue to monitor. #Peripheral neuropathy He stopped taking gabapentin at his home. ?Continue to monitor. Health Maintenance: Diet: low carb consistent GI prophylaxis: none DVT prophylaxis: heparin 5000 BID CODE STATUS: FULL Disposition: Tele Assessment and plan discussed with my attending physician Dr. Arce and Dr. Rodriguez (PGY-3) Dr. De La Torre (PGY-1) - Internal medicine resident Attending Provider Attestation/Addendum I have examined the patient, reviewed labs and imaging findings, discussed the case with the resident(s), and reviewed entered orders. I agree with the plan of care as outlined in this note, with these additional summaries/recommendations: Patient seen at bedside. Overnight patient developed a fever with Tmax 100.8 Fahrenheit. Patient is status post incision and drainage of left foot abscess on 09/17/2025. Given patient is still febrile, he will return to the operating room for further surgical intervention. Continue IV antibiotics for abscess, osteomyelitis, and bacteremia. Repeat blood cultures pending. ESR 78 and CRP 23.4. Patient is status post PICC line for osteomyelitis. Patient was counseled at bedside on the importance of blood sugar control. A1c greater than 14%. Continue basal bolus insulin for diabetes mellitus type 2. Target blood sugar of 140-180 while hospitalized. Continue diabetic education while hospitalized. Patient would benefit from outpatient sleep study for likely undiagnosed MARY. Patient updated on the plan and in agreement. All questions answered to satisfaction. Please see residents note for additional details and management. Dr. Yazmin MD
[2025-09-19] MEDS: MAGNESIUM OXIDE 400 MG TABLET PO (10:35)
--- NOTE | 2025-09-19 13:54 | SUR.PHASEI ---
pt received from OR in recovery bay 5. pt obtunded, breathing unlabored on 10l oxymask, oral airway in place. v/s stable. pt dressing to left foot cdi. report received from Zain BUCHANAN and Davida JUNIOR.
--- NOTE | 2025-09-19 14:23 | PD.SUROPNT ---
Date of Procedure 09/19/25 Pre Op Diagnosis Left foot abscess with osteomyelitis Post Op Diagnosis Same Procedure Incision and drainage of left foot abscess Findings Left foot with multiple pus collections and necrotic tissue Procedure Description After discussion of risks and benefits, patient was brought to the operating room and MAC anesthesia was induced. He had already received antibiotics and was prepped and draped in the usual sterile fashion. After timeout the lateral wound was first addressed. The necrotic skin and subcutaneous tissue was excised sharply with a #15 blade and scissors. There was extensive necrotic tissue which was sharply debrided with a curette down to the level of bone. The wound was irrigated with Betadine and hydrogen peroxide and saline. The heel was then addressed where there was a necrotic patch of skin. This was excised sharply with a #15 blade and again the wound was curetted this time down to the level of subcutaneous tissue. This wound was also irrigated with Betadine, hydrogen peroxide and saline. Lastly the existing medial incision was extended proximally with a #15 blade. There was return of copious pus and this wound was also sharply debrided with a curette down to the level of bone. Again this wound was irrigated with hydrogen peroxide, Betadine and saline. Each of the 3 wounds was packed with moistened Kerlix. The denuded skin was covered with Adaptic and the entire foot was covered with fluffs which were secured with Kerlix rolls. Patient was awoken and brought to PACU in stable condition Pathology / specimen None Estimated Blood Loss 25 Surgeon Faby Tafoya MD Surgical Staff Operation Date: 09/19/25 13:00 Case Staff Anesthesiologist: Romero Santiago
--- NOTE | 2025-09-19 14:45 | SUR.PHASEI ---
pt asleep but responds to voice, breathing unlabored on room air. v/s stable. pt dressing to left foot cdi. report called to Jania Loera. pt will be transferred to room at this time.
--- NOTE | 2025-09-19 15:26 | PC.SS ---
Addendum entered by Joy Canales 09/19/25 16:00: SS has faxed DME order for wheelchair to [facility] [place]. Wheelchair was recommended by Prabhjot from PT Original Note: SS has sent inquiry for walker, DME using [facility].
[2025-09-19] MEDS: MORPHINE SULF INJ 4 MG/ML VIAL 2 MG IVP (19:27)
[2025-09-19] MEDS: INSULIN DEGLUDEC 5 UNIT/0.05 ML (PER 5 UNITS) 65 UNIT SC (20:12)
[2025-09-19] MEDS: ACETAMINOPHEN 325 MG TABLET 650 MG PO (20:13)
[2025-09-19] MEDS: ATORVASTATIN CALCIUM 10 MG TABLET PO (20:13)
[2025-09-20] VITALS (7 sets, daily range): BP systolic 112–143; BP diastolic 70–99; PULSE 94–105; RESP 15–32; TEMP 36.1–37.7; O2SAT 94–100; BMI 36.3
[2025-09-20 06:09] LABS: Basophils # (Auto) 0.0 Thou/mm3 (0.0-0.2); Basophils % (Auto) 0 % (0-2.5); Eosinophils # (Auto) 0.2 Thou/mm3 (0.0-0.5); Eosinophils % (Auto) 1 % (0-10); Hematocrit 24.3 % (41.0-53.0); Immature Granulocytes Auto 0.19 Thou/mm3 (0.00-0.00); Lymphocytes # (Auto) 2.0 Thou/mm3 (1.0-4.8); Lymphocytes % (Auto) 17 % (10-50); Mean Corpuscular HGB Conc 32.9 g/dl (31.0-37.0); Mean Corpuscular Hemoglobin 29.1 pg (25.0-35.0); Mean Corpuscular Volume 88 fL (80-100); Monocytes # (Auto) 1.0 Thou/mm3 (0.0-0.8); Monocytes % (Auto) 9 % (0-12); Neutrophils # (Auto) 8.8 Thou/mm3 (1.8-7.7); Neutrophils % (Auto) 72 % (37-80); Nucleated Red Blood Cell # 0.00 Thou/mm3 (0.00-0.00); Nucleated Red Blood Cell % 0 /100 WBC (0); Platelet Count 329 Thou/mm3 (140-440); RDW Standard Deviation 48.0 fL (35.1-43.9); Red Blood Count 2.75 Miln/mm3 (4.50-5.90); White Blood Count 12.2 Thou/mm3 (3.8-10.6)
[2025-09-20 06:11] LABS: Hemoglobin 8.0 g/dL (13.5-16.0)
[2025-09-20 06:39] LABS: Alanine Aminotransferase 14 U/L (10-49); Albumin, Serum 2.5 gm/dL (3.5-5.0); Albumin/Globulin Ratio 0.8 (1.2-2.2); Alkaline Phosphatase 151 U/L (46-116); Anion Gap 8 (7-16); Aspartate Amino Transferase 24 U/L (0-34); BUN/Creatinine Ratio 13 Ratio (12-20); Bilirubin,Total 0.5 mg/dL (0.3-1.2); Blood Urea Nitrogen 8 mg/dL (9-23); Calcium 7.3 mg/dL (8.3-10.6); Calcium (Corrected) 8.5 mg/dL (8.5-10.1); Carbon Dioxide 25.6 mMol/L (20.0-31.0); Chloride 101 mMol/L (98-107); Creatinine (Component) 0.6 mg/dL (0.6-1.3); Estimated Creatinine Clearance 235.4 mL/min (>60); Globulin 3.1 gm/dL (2.3-3.5); Glucose 206 mg/dL (74-106); Magnesium 1.9 mg/dL (1.6-2.6); Osmolality,Calculated 274 (275-295); Phosphorous 3.2 mg/dL (2.4-5.1); Potassium 4.0 mMol/L (3.4-5.1); Sodium 135 mMol/L (136-145); Total Protein 5.6 gm/dL (5.7-8.2); eGFR > 60 See Note
[2025-09-20] MEDS: INSULIN LISPRO (AdmeLOG) 1 UNIT/0.01 ML UNIT 10 UNIT SC ×2 (07:49→17:38)
[2025-09-20] MEDS: DOXYCYCLINE INJ 100 MG in SODIUM CHLORIDE 0.9% (POP) 100 ML IV ×2 (07:50→20:38)
[2025-09-20] MEDS: INSULIN LISPRO (AdmeLOG) 1 UNIT/0.01 ML UNIT SC ×2 (07:50→17:39)
[2025-09-20] MEDS: cefTRIAXone/D5w 2gm 2 GM/50 ML BAG IV (07:50)
[2025-09-20] MEDS: ACETAMINOPHEN 325 MG TABLET 650 MG PO (07:51)
[2025-09-20] MEDS: HEPARIN SOD INJ 5000 UNIT/ML VIAL SC (07:51)
--- NOTE | 2025-09-20 08:39 | ESPR_ITS ---
Documentation for date of: 09/20/25 Subjective Subjective Interval history: Pt reported feeling better this am, however later in the day he experienced chest pain which felt like pressure with EKG showing possible ischemic changes, trop negative. He experienced a tmax of 101.5 at 1999 yesterday which resolved with oral tylenol 650 mg. He is more alert and only reports a 2/10 pain in his foot Exam Vital Signs Temp Pulse Resp BP Pulse Ox O2 Del Method O2 Flow Rate 98.5 F 103 H 18 128/84 95 Room Air 09/20/25 08:00 09/20/25 08:00 09/20/25 08:00 09/20/25 08:00 09/20/25 08:00 09/20/25 08:00 09/19/25 14:10 Constitutional Constitutional: no acute distress Routine Respiratory Exam Respiratory: Present no resp distress Routine Extremities Exam Comments: left foot wounds at the lateral and medial aspects as well as heel, with necrotic subcutaneous tissue at heel, improved overall erythema and swelling but extensive purulent drainage on dressings Objective Labs 09/20/25 10:01 09/20/25 10:01 Labs: Laboratory Results - last 24 hr 09/20/25 05:40 WBC 12.2 H RBC 2.75 L Hgb 8.0 L Hct 24.3 L MCV 88 MCH 29.1 MCHC 32.9 RDW Std Deviation 48.0 H Plt Count 329 Neut % (Auto) 72 Lymph % (Auto) 17 [place] % (Auto) 9 Eos % (Auto) 1 Baso % (Auto) 0 Neut # (Auto) 8.8 H Lymph # (Auto) 2.0 [place] # (Auto) 1.0 H Eos # (Auto) 0.2 Baso # (Auto) 0.0 Immature Gran # (Auto) 0.19 H Absolute Nucleated RBC 0.00 Immature Gran % 2 H Nucleated RBC % 0 Sodium 135 L Potassium 4.0 Chloride 101 Carbon Dioxide 25.6 Anion Gap 8 BUN 8 L Creatinine 0.6 Estim Creat Clear Calc 235.4 eGFR > 60 BUN/Creatinine Ratio 13 Glucose 206 H Calculated Osmolality 274 L Calcium 7.3 L Corrected Calcium 8.5 Phosphorus 3.2 Magnesium 1.9 Total Bilirubin 0.5 AST 24 ALT 14 Alkaline Phosphatase 151 H D Total Protein 5.6 L Albumin 2.5 L Globulin 3.1 Albumin/Globulin Ratio 0.8 L ABG Interpretation ABG results: 09/16/25 20:09 VBG pH 7.50 VBG pCO2 25 L D VBG pO2 83 H VBG Base Excess -3 Quality Measures Quality Measures sepsis Current suspected stage: sepsis Possible source: skin/soft tissue and wound Blood cultures ordered: yes Antibiotic ordered: Yes Assessment & Plan Assessment Current Active Medications: Generic Name Dose Route Start Last Admin Trade Name Freq PRN Reason Stop Dose Admin Acetaminophen 650 mg 09/16/25 20:08 09/19/25 20:13 Acetaminophen 325 Mg Tablet PO 10/16/25 20:07 650 mg Q6H PRN Administration Fever >101.5 Acetaminophen 650 mg 09/16/25 20:08 09/20/25 07:51 Acetaminophen 325 Mg Tablet PO 10/16/25 20:07 650 mg Q6H PRN Administration PAIN SCALE 1-3 (mild Atorvastatin Calcium 10 mg 09/17/25 21:00 09/19/25 20:13 Atorvastatin Calcium 10 Mg Tablet PO 10/17/25 20:59 10 mg HS RONALD Administration Dextrose 25 ml 09/16/25 20:53 Dextrose 50%-Water Inj 50 Ml Syringe IV 10/16/25 20:52 Q15MIN PRN BG 50-70 responsive npo pt Dextrose 50 ml 09/16/25 20:53 Dextrose 50%-Water Inj 50 Ml Syringe IV 10/16/25 20:52 Q15MIN PRN BG <50 OR BG <70 & pt unresponsive Glucagon 1 mg 09/16/25 20:53 Glucagon Inj 1 Mg Vial IM Q15MIN PRN BG <70, and no IV access Heparin Sodium (Porcine) 5,000 unit 09/16/25 21:00 09/20/25 07:51 Heparin Sod Inj 5000 Unit/Ml Vial SC 09/30/25 20:59 5,000 unit BID RONALD Administration Ceftriaxone Sodium/Dextrose 2 gm in 50 mls @ 100 mls/hr 09/17/25 09:30 09/20/25 07:50 Rocephin/D5w 2gm IV 09/24/25 09:29 100 mls/hr QDAY RONALD Administration Doxycycline Hyclate 100 mg/ 100 mls @ 100 mls/hr 09/18/25 21:00 09/20/25 07:50 Sodium Chloride IV 09/25/25 20:59 100 mls/hr BID RONALD Administration Insulin Degludec 65 unit 09/17/25 21:00 09/19/25 20:12 Insulin Degludec 5 Unit/0.05 Ml (Per 5 Units) SC 10/17/25 20:59 65 unit DAILY@2100 RONALD Administration Insulin Human Lispro 0 unit 09/17/25 17:00 09/20/25 07:50 Insulin Lispro (Admelog) 1 Unit/0.01 Ml Unit SC 10/17/25 16:59 3 unit AC RONALD Administration Protocol Insulin Human Lispro 10 unit 09/18/25 11:30 09/20/25 07:49 Insulin Lispro (Admelog) 1 Unit/0.01 Ml Unit SC 10/18/25 11:29 10 unit AC RONALD Administration Morphine Sulfate 2 mg 09/16/25 20:08 09/19/25 19:27 Morphine Sulf Inj 4 Mg/Ml Vial IVP 09/21/25 20:07 2 mg Q6HR PRN Administration PAIN SCALE 7-10 (Severe Ondansetron HCl 4 mg 09/16/25 20:08 09/17/25 08:12 Ondansetron Inj 2 Mg/Ml Inj 2 Ml IVP 10/16/25 20:07 4 mg Q6H PRN Administration NAUSEA OR VOMITING Protocol Plan 40M with HTN, HLD, DMII (A1c >14) presenting with left foot cellulitis, osteomyelitis of the distal 5th metatarsal as well as purulent drainage, s/p I&D 09/17, with persistent fever and swelling s/p repeat I&D with excisional debridement 09/19. The foot continues to have areas of necrotic tissue and may ultimately require amputation, however it is imperative to have strict glucose control and with the current concern for acute coronary syndrome, amputation does confer cardiac risk as some bleeding is expected. For now will pursue aggressive wound care but will continue to follow and consider amputation as needed Appreciate wound care recs Continue abx, f/u cultures Will follow up
--- NOTE | 2025-09-20 09:51 | XR_ITS ---
EXAMINATION: AP chest single view TECHNIQUE: AP portable semiupright chest single view Date and time: September 20, 2025, 1007 hours, comparison September 16, 2025 INDICATIONS: Chest pain rapid response today. FINDINGS: Poor inspiration Normal heart size Mild vascular congestion. No lobar pneumonia or pulmonary edema Right arm dual-lumen PICC line tip proximal SVC IMPRESSION: Mild vascular congestion
--- NOTE | 2025-09-20 09:51 | EKG_ITS ---
[facility] Test Date: 2025-09-20 Pat Name: ARMANDO HERRERA Department: Room: S263A Gender: Male Account Development Representative: DONTRELL : 1985 Requested By: Satish Tovar Order Number: [id number] Reading MD: Satish Tovar Measurements Intervals [place] Rate: 96 P: -1 SD: 152 QRS: 6 QRSD: 94 T: 49 QT: 368 QTc: 465 Interpretive Statements SINUS RHYTHM POSSIBLE ANTERIOR MYOCARDIAL INFARCTION , OF INDETERMINATE AGE MODERATE T-WAVE ABNORMALITY, CONSIDER LATERAL ISCHEMIA Compared to ECG 09/16/2025 20:55:51 Myocardial infarct finding now present T-wave abnormality now present Possible ischemia now present Sinus tachycardia no longer present /store/S0/[id number].pdf
[2025-09-20] MEDS: MORPHINE SULF INJ 4 MG/ML VIAL 1 MG IVP (09:59)
--- NOTE | 2025-09-20 10:00 | PC.SS ---
Follow up note: Pt will require IV Rocephin 2grm 1X day until 2024.
[2025-09-20 10:18] LABS: Lactate (Lactic Acid) 2.2 mMol/L (0.4-2.0)
[2025-09-20 10:22] LABS: Basophils # (Auto) 0.0 Thou/mm3 (0.0-0.2); Basophils % (Auto) 0 % (0-2.5); Eosinophils # (Auto) 0.2 Thou/mm3 (0.0-0.5); Eosinophils % (Auto) 1 % (0-10); Hematocrit 25.6 % (41.0-53.0); Immature Granulocytes Auto 0.19 Thou/mm3 (0.00-0.00); Lymphocytes # (Auto) 2.2 Thou/mm3 (1.0-4.8); Lymphocytes % (Auto) 18 % (10-50); Mean Corpuscular HGB Conc 32.0 g/dl (31.0-37.0); Mean Corpuscular Hemoglobin 28.7 pg (25.0-35.0); Mean Corpuscular Volume 90 fL (80-100); Monocytes # (Auto) 0.9 Thou/mm3 (0.0-0.8); Monocytes % (Auto) 7 % (0-12); Neutrophils # (Auto) 9.0 Thou/mm3 (1.8-7.7); Neutrophils % (Auto) 72 % (37-80); Nucleated Red Blood Cell # 0.00 Thou/mm3 (0.00-0.00); Nucleated Red Blood Cell % 0 /100 WBC (0); Platelet Count 342 Thou/mm3 (140-440); RDW Standard Deviation 48.0 fL (35.1-43.9); Red Blood Count 2.86 Miln/mm3 (4.50-5.90); White Blood Count 12.4 Thou/mm3 (3.8-10.6)
--- NOTE | 2025-09-20 10:22 | PD.IMCONS ---
HPI Data of Consult Requesting Physician: Satish Arce MD Primary Care Provider: Physician No Primary/Family Consult Narrative History of present illness: This is a 40-year-old male with past medical history of hypertension, diabetes, hyperlipidemia pt was admitted with L- foot abscess and underwent surgery for abscess yesterday today he complained of chest pain EKG showed T intervesion troponin pending No prior cardiac history cc:: cc: Satish Arce MD Meds Home Medications and Allergies Home Medications ?Medication ?Instructions ?Recorded ?Confirmed ?Type lisinopril 5 mg tablet 5 mg PO DAILY 09/22/24 09/17/25 History metformin 500 mg tablet 500 mg PO QAM 09/22/24 09/17/25 History Allergies Allergy/AdvReac Type Severity Reaction Status Date / Time No Known Allergies Allergy Verified 09/16/25 16:47 Exam Vital Signs Temp Pulse Resp BP Pulse Ox O2 Del Method O2 Flow Rate 98.5 F 103 H 18 128/85 H 95 Room Air 10 09/20/25 08:00 09/20/25 08:00 09/20/25 08:00 09/20/25 09:59 09/20/25 08:00 09/20/25 08:00 09/19/25 14:10 Routine HEENT Exam Head: Present normocephalic and atraumatic Eye: Present EOMI and PERRL ENT: Present mucous membranes moist Routine Neck Exam Neck: Present supple and trachea midline Routine Respiratory Exam Respiratory: Present chest non-tender, lungs clear, normal breath sounds and no resp distress Routine Cardiovascular Exam Cardiovascular: Present RRR Routine Abdominal Exam Abdominal: Present soft and normoactive bowel sounds Routine Extremities Exam Extremities: Present full ROM Routine Skin Exam Skin: Present intact, dry and warm Routine Neurological Exam Neurological: Present alert, oriented X3 and CN II-XII intact Routine Psychiatric Exam Psychiatric: Present normal affect and normal thought process Results Labs 09/20/25 05:40 09/20/25 05:40 Labs: Short CBC 09/20/25 Range/Units 05:40 WBC 12.2 H (3.8-10.6) Thou/mm3 Hgb 8.0 L (13.5-16.0) g/dL Hct 24.3 L (41.0-53.0) % Plt Count 329 (140-440) Thou/mm3 BMP 09/20/25 05:40 Sodium 135 L Potassium 4.0 Chloride 101 Carbon Dioxide 25.6 BUN 8 L Creatinine 0.6 Glucose 206 H Calcium 7.3 L Liver Function 09/20/25 Range/Units 05:40 Total Bilirubin 0.5 (0.3-1.2) mg/dL AST 24 (0-34) U/L ALT 14 (10-49) U/L Alkaline Phosphatase 151 H D (46-116) U/L Albumin 2.5 L (3.5-5.0) gm/dL ABG Interpretation ABG results: 09/16/25 20:09 VBG pH 7.50 VBG pCO2 25 L D VBG pO2 83 H VBG Base Excess -3 Assessment and Plan Assessment and plan (1) Sepsis: Status: Acute (2) Osteomyelitis: Status: Acute (3) Poorly controlled diabetes mellitus: Status: Acute (4) Chest pain: Status: Acute Additional Assessment & Plan Additional Plan: pt c/o of chest pain he has multiple risk factors ECG shows T intersion obtain troponin start heparin dirp / asa/ plavix echo to be done
--- NOTE | 2025-09-20 10:25 | PC.CM ---
Addendum entered by Arminda Hu RN 09/20/25 13:28: Rebekah from [facility] called me back and they will be able to follow patient if he discharges home with IV ABX. Patient has his appointment with Dr. Damon Ortega for September 21 at 9:15 as per [facility] SS. Rebekah stated they are able to follow because patient was already established with Dr. Ortega earlier this year. Rebekah asked that patient let the the doctor know he will be going home with IV abx with home health to follow. I updated [facility] and she was going to relay information to family. Original Note: I spoke to [facility] yesterday and we discussed patient not being able to discharge home with home health because he does not have a PCP. [facility] states she has scheduled pt an appointment with Damon Ortega for August at 9:15am. I will reach out to [facility] to verify they will be able to open patient for abx tx once patient has completed his phone appointment.
[2025-09-20 10:50] LABS: Alanine Aminotransferase 15 U/L (10-49); Albumin, Serum 2.7 gm/dL (3.5-5.0); Albumin/Globulin Ratio 0.8 (1.2-2.2); Alkaline Phosphatase 162 U/L (46-116); Anion Gap 9 (7-16); Aspartate Amino Transferase 24 U/L (0-34); BUN/Creatinine Ratio 13 Ratio (12-20); Bilirubin,Total 0.4 mg/dL (0.3-1.2); Blood Urea Nitrogen 8 mg/dL (9-23); Calcium 7.8 mg/dL (8.3-10.6); Calcium (Corrected) 8.8 mg/dL (8.5-10.1); Carbon Dioxide 26.1 mMol/L (20.0-31.0); Chloride 103 mMol/L (98-107); Creatinine (Component) 0.6 mg/dL (0.6-1.3); Estimated Creatinine Clearance 235.4 mL/min (>60); Globulin 3.3 gm/dL (2.3-3.5); Glucose 89 mg/dL (74-106); Osmolality,Calculated 272 (275-295); Potassium 4.3 mMol/L (3.4-5.1); Sodium 138 mMol/L (136-145); Total Protein 6.0 gm/dL (5.7-8.2); Troponin I < 0.002 ng/mL (0.0-0.045); eGFR > 60 See Note
[2025-09-20 10:57] LABS: Hemoglobin 8.2 g/dL (13.5-16.0)
[2025-09-20] MEDS: CLOPIDOGREL BISULFATE 75 MG TABLET PO (11:18)
[2025-09-20 11:56] LABS: INR 1.1 (0.9-1.3); Partial Thromboplastin Time 26.2 Seconds (22.0-36.0); Prothrombin Time 11.7 Seconds (9.0-12.2)
--- NOTE | 2025-09-20 12:49 | EVENTNT_ITS ---
<Statement entered by Venita Rodriguez MD - 09/20/25 18:19> I discussed with and supervised the it intern physician who took care of this patient. I personally saw and examined the patient and discussed the assessment and plan with the entire medicine team, including my attending , I agree with the assessment and plan as documented below Venita Rodriguez M.D. PGY-3 Disclaimer: Despite multiple revisions, due to the dictation software being used, the document bellow may not be free of grammatical errors including phonetic/typographic errors. However, this does not deter from our commitment to providing health care in the patient's best interest in mind. Documentation for date of: 09/20/25 Event Note Event Note: Patient had rapid event this morning at 9:53 AM 09/20/2025 for new onset, acute, 9 out of 10 chest pain that is nonradiating and gets worse when breathing in. Vitals 112/78, HR 94, RR 24, 100% O2 sats on room air, blood glucose 94. CBC, CMP, lactate, troponin, stat CXR, stat EKG, echo has been ordered. Cardiology, Dr. Garcia has been consulted. Patient was given aspirin 325 mg p.o. x 1 and IV morphine 1 mg x 1. Assessment and plan discussed with my attending physician Dr. Arce and Dr. Rodriguez (PGY-3) Dr. De La Torre (PGY-1) - Internal medicine resident
--- NOTE | 2025-09-20 12:54 | PD.RESPRO ---
Documentation for date of: 09/20/25 Subjective Subjective Interval history: Patient had rapid event this morning at 9:53 AM 09/20/2025 for new onset acute 9 out of 10 chest pain that is nonradiating and gets worse when breathing in. At the time, vitals were 112/78, HR 94, RR 24, 100% O2 sats on room air, blood glucose 94. CBC, CMP, lactate, troponin, stat CXR, stat EKG, echo has been ordered. Cardiology, Dr. Garcia has been consulted. Patient was given aspirin 325 mg p.o. x 1 and IV morphine 1 mg x 1. First Troponin was <0.002. Lactic acid level 2.2. WBC in decreasing trend from 14.7 to 12.4. bicarb level normal 26.1, Anion Gap normal 9. EKG showed T inversions. Per cardiology recommendations, started on aspirin 81mg po qd, plavix 75mg qd, and heparin drip. Patient had an episode of fever overnight at 101.5 F. Continuing IV Ceftriaxone 2g qd and IV doxycycline 100mg bid. Blood culture was negative for 24hrs. Will continue to monitor. Labs reviewed and patient examined at the bedside. Patient's chest pain has been reduced since the rapid event. Endorses pain on his left foot where he did incision and drainage 2 times. Physical therapy recommend SNF placement, but patient adamently wanted to go home. Denies palpation, SOB, abdominal pain, N/V, fevers or chills. Exam Vital Signs Temp Pulse Resp BP Pulse Ox O2 Del Method O2 Flow Rate 97.0 F 96 17 126/76 98 Room Air 10 09/20/25 12:00 09/20/25 12:00 09/20/25 12:00 09/20/25 12:09/20/25 12:00 09/20/25 12:00 09/19/25 14:10 Narrative Exam General: No acute distress, well nourished, AAO x3 Eye: PERRL, EOMI, normal conjunctiva, no scleral icterus HENT: Normocephalic, atraumatic, hearing intact to conversation at normal volume, moist oral mucosa Neck: Supple, non-tender, no JVD, no lymphadenopathy Lungs: Non-labored respirations, symmetric chest rise, Clear to auscultate bilaterally, No wheezing, rhonchi, crackles Heart: Peripheral pulses intact bilaterally, Regular Rate and Rhythm. Abdomen: Soft, non-tender, non-distended, no palpable masses Musculoskeletal/Skin: Right foot: Distal plantar surface shows a dry eschar; no swelling; dorsalis pedis pulse palpable. Left foot: wounds packed and covered with adaptic,fluffs and a kerlix roll. Psychiatric: Cooperative, appropriate mood and affect, Awake and alert, not agitated Neuro: Cranial nerves II-XII grossly intact. Strength 5/5 throughout. Sensations intact to light touch. Objective Labs 09/21/25 05:30 09/21/25 05:30 Labs: Laboratory Results - last 24 hr 09/20/25 09/20/25 09/20/25 05:40 10:00 10:01 WBC 12.2 H 12.4 H RBC 2.75 L 2.86 L Hgb 8.0 L 8.2 L Hct 24.3 L 25.6 L MCV 88 90 MCH 29.1 28.7 MCHC 32.9 32.0 RDW Std Deviation 48.0 H 48.0 H Plt Count 329 342 Neut % (Auto) 72 72 Lymph % (Auto) 17 18 [place] % (Auto) 9 7 Eos % (Auto) 1 1 Baso % (Auto) 0 0 Neut # (Auto) 8.8 H 9.0 H Lymph # (Auto) 2.0 2.2 [place] # (Auto) 1.0 H 0.9 H Eos # (Auto) 0.2 0.2 Baso # (Auto) 0.0 0.0 Immature Gran # (Auto) 0.19 H 0.19 H Absolute Nucleated RBC 0.00 0.00 Immature Gran % 2 H 2 H Nucleated RBC % 0 0 PT 11.7 INR 1.1 APTT 26.2 Sodium 135 L 138 Potassium 4.0 4.3 Chloride 101 103 Carbon Dioxide 25.6 26.1 Anion Gap 8 9 BUN 8 L 8 L Creatinine 0.6 0.6 Estim Creat Clear Calc 235.4 235.4 eGFR > 60 > 60 BUN/Creatinine Ratio 13 13 Glucose 206 H 89 D Calculated Osmolality 274 L 272 L Lactic Acid 2.2 H Calcium 7.3 L 7.8 L Corrected Calcium 8.5 8.8 Phosphorus 3.2 Magnesium 1.9 Total Bilirubin 0.5 0.4 AST 24 24 ALT 14 15 Alkaline Phosphatase 151 H D 162 H Troponin I < 0.002 Total Protein 5.6 L 6.0 Albumin 2.5 L 2.7 L Globulin 3.1 3.3 Albumin/Globulin Ratio 0.8 L 0.8 L ABG Interpretation ABG results: 09/16/25 20:09 VBG pH 7.50 VBG pCO2 25 L D VBG pO2 83 H VBG Base Excess -3 Quality Measures Quality Measures sepsis Current suspected stage: sepsis Possible source: skin/soft tissue and wound Blood cultures ordered: yes Antibiotic ordered: Yes Assessment & Plan Assessment Current Active Medications: Generic Name Dose Route Start Last Admin Trade Name Freq PRN Reason Stop Dose Admin Acetaminophen 650 mg 09/16/25 20:08 09/19/25 20:13 Acetaminophen 325 Mg Tablet PO 10/16/25 20:07 650 mg Q6H PRN Administration Fever >101.5 Acetaminophen 650 mg 09/16/25 20:08 09/20/25 07:51 Acetaminophen 325 Mg Tablet PO 10/16/25 20:07 650 mg Q6H PRN Administration PAIN SCALE 1-3 (mild Aspirin 81 mg 09/21/25 09:00 Aspirin Ec 81 Mg Tabec PO 10/21/25 08:59 QDAY RONALD Atorvastatin Calcium 80 mg 09/20/25 21:00 Atorvastatin Calcium 20 Mg Tablet PO 10/20/25 20:59 HS RONALD Clopidogrel Bisulfate 75 mg 09/20/25 11:00 09/20/25 11:18 Clopidogrel Bisulfate 75 Mg Tablet PO 10/20/25 10:59 75 mg QDAY RONALD Administration Dextrose 25 ml 09/16/25 20:53 Dextrose 50%-Water Inj 50 Ml Syringe IV 10/16/25 20:52 Q15MIN PRN BG 50-70 responsive npo pt Dextrose 50 ml 09/16/25 20:53 Dextrose 50%-Water Inj 50 Ml Syringe IV 10/16/25 20:52 Q15MIN PRN BG <50 OR BG <70 & pt unresponsive Glucagon 1 mg 09/16/25 20:53 Glucagon Inj 1 Mg Vial IM Q15MIN PRN BG <70, and no IV access Ceftriaxone Sodium/Dextrose 2 gm in 50 mls @ 100 mls/hr 09/17/25 09:30 09/20/25 07:50 Rocephin/D5w 2gm IV 09/24/25 09:29 100 mls/hr QDAY RONALD Administration Doxycycline Hyclate 100 mg/ 100 mls @ 100 mls/hr 09/18/25 21:00 09/20/25 07:50 Sodium Chloride IV 09/25/25 20:59 100 mls/hr BID RONALD Administration Heparin Sodium/Dextrose 25,000 unit in 250 mls @ 10.269 mls/hr 09/20/25 12:30 Heparin In D5w Ivpb IV 10/04/25 12:29 .Q24H [facility] Protocol 8 UNITS/KG/HR Insulin Degludec 65 unit 09/17/25 21:00 09/19/25 20:12 Insulin Degludec 5 Unit/0.05 Ml (Per 5 Units) SC 10/17/25 20:59 65 unit DAILY@2100 RONALD Administration Insulin Human Lispro 0 unit 09/17/25 17:00 09/20/25 11:22 Insulin Lispro (Admelog) 1 Unit/0.01 Ml Unit SC 10/17/25 16:59 Not Given [facility] Protocol Insulin Human Lispro 10 unit 09/18/25 11:30 09/20/25 12:22 Insulin Lispro (Admelog) 1 Unit/0.01 Ml Unit SC 10/18/25 11:29 Not Given [facility] Morphine Sulfate 2 mg 09/16/25 20:08 09/19/25 19:27 Morphine Sulf Inj 4 Mg/Ml Vial IVP 09/21/25 20:07 2 mg Q6HR PRN Administration PAIN SCALE 7-10 (Severe Ondansetron HCl 4 mg 09/16/25 20:08 09/17/25 08:12 Ondansetron Inj 2 Mg/Ml Inj 2 Ml IVP 10/16/25 20:07 4 mg Q6H PRN Administration NAUSEA OR VOMITING Protocol Plan 40-year-old male with past medical history of hypertension, diabetes, hyperlipidemia presented to the ED with complaint of left foot redness, swelling, pain since 3 days associated with fever, chills,vomiting and Diarrhea. He was admitted for MSSA secondary to Left foot Osteomyelitis. #MSSA bacteremia 2/2 #Left foot osteomyelitis. History of right foot osteomyelitis 1 year ago, diabetes, history of trauma to the left foot on 09/09. Fevers, chills, vomiting, diarrhea, decreased appetite. Pulse rate 125, temperature 100.7 WBC 29.2 with left shift, Pro-[place] 5.33, ESR 78. -Blood Cx: 1st Blood Culture 09/14: Staph Aureus x1, 2nd Blood Culture 09/16: Staph Aureus x2, 3rd blood culture 09/18: Negative for 24hrs. -Blood culture from 09/16 prelim showing GPC Repeat CT scan of the left foot showing left distal fifth metatarsal osteomyelitis pain concern for soft tissue infection with gas-forming organisms. -PICC line placed 09/18 -Gen surgery, Dr. Tafoya, performed incision and drainage of abscesses at multiple sites on the left foot (distal lateral, heel lateral, heel medial, and distal medial), excision of necrotic skin. Four fluctuant areas containing pus. Total pus drained 40 cc. Patient tolerated procedure well. -ECHO (09/16/2025): Normal left ventricular size and function. Approximate ejection fraction is 55-60%. Normal right ventricular size and function. Trace mitral and trace tricuspid regurgitation noted. No pericardial effusion. -Patient received second incision and drainage of the left foot on Plan - Patient is on IV ceftriaxone 2 g IV daily and doxycycline IV 100 mg twice daily. - On discharge, he will need to complete 6 weeks course of abx (IV ceftriaxone 1g qd and PO Doxycycline 100mg bid) - Wound care #? Unstable Angina -Patient had rapid event at 9:53 AM 09/20/2025 for new onset acute 9 out of 10 chest pain that is nonradiating and gets worse when breathing in. -At the time, vitals were 112/78, HR 94, RR 24, 100% O2 sats on room air, blood glucose 94. CBC, CMP, lactate, troponin, stat CXR, stat EKG, echo has been ordered. -Patient was given aspirin 325 mg p.o. x 1 and IV morphine 1 mg x 1. -First Troponin was <0.002. Lactic acid level 2.2. WBC in decresing trend from 14.7 to 12.4. bicarb level normal 26.1, Anion Gap normal 9. EKG showed T inversions. Plan: -Per cardiology recommendations, started on aspirin 81mg po qd, plavix 75mg qd, and heparin drip. -Consulted Cardiology, Dr. Garcia, appreciate recommendtions. #T2DM -Initial blood glucose levels are 399, BHB 5.4 with normal anion gap. -Glucose level 09/18: 280 09/19:157 Plan: -insulin Degludec 65 units -Premeal insulin lispro 10 units has been added -Needs Ozempic injection for tighter weight control. -step 3 of sliding scale. -Aiming for stricter blood glucose control. -Educated on the footcare. #Hypertension. Currently normotensive . ?Resume his home medication lisinopril 20 mg at later time when appropriate. #Hyperlipidemia Starting on his home medication atorvastatin 10 mg Continue to monitor. #Peripheral neuropathy He stopped taking gabapentin at his home. ?Continue to monitor. Health Maintenance: Diet: low carb consistent GI prophylaxis: none DVT prophylaxis: heparin 5000 BID CODE STATUS: FULL Disposition: Tele Assessment and plan discussed with my attending physician Dr. Arce and Dr. Rodriguez (PGY-3) Dr. De La Torre (PGY-1) - Internal medicine resident Attending Provider Attestation/Addendum I have examined the patient, reviewed labs and imaging findings, discussed the case with the resident(s), and reviewed entered orders. I agree with the plan of care as outlined in this note, with these additional summaries/recommendations: Patient seen at bedside. No acute overnight events. This morning patient had rapid response for chest pain. Chest pain was atypical in nature described as pressure-like in quality, substernal, and radiating down left arm. Given patient's typical symptoms this is concerning for NSTEMI/unstable angina from ACS or plaque rupture. EKG obtained which revealed T wave abnormalities in the lateral region. Stat cardiology consult was obtained and patient started on heparin gtt., aspirin, and Plavix. Troponin ordered and follow-up level when available. Patient is status post repeat I&D of left foot abscess. Continue IV antibiotics. Wound culture and blood cultures grew Staph aureus. Repeat blood cultures negative at 24 hours and we will await 48-hour madelaine. Status post PICC line. ESR 78 and CRP 23.4. Patient was counseled at bedside on the importance of blood sugar control. A1c greater than 14%. Continue basal bolus insulin for diabetes mellitus type 2. Target blood sugar of 140-180 while hospitalized. Continue diabetic education while hospitalized. Patient would benefit from outpatient sleep study for likely undiagnosed MARY. Patient updated on the plan and in agreement. All questions answered to satisfaction. Please see residents note for additional details and management. Dr. Yazmin MD
[2025-09-20 13:14] LABS: Reflex Lactate? Y
--- NOTE | 2025-09-20 13:40 | PC.SS ---
BERTIN followed up with Gloria from [facility] who explained DME order for wheelchair has been received and they will review DME order. SS has informed Gloria to deliver wheelchair to bedside and is aware pt is possible dc tomorrow. SS has confirmed with she will be at bedside with pt for the follow up phone call pt will have with PCP. SS has provided with [employer] phone#.
[2025-09-20 13:57] LABS: Lactic Acid, 3 HR 1.9 mMol/L (0.4-2.0)
[2025-09-20] MEDS: Heparin/D5w 25K 250 ML Ivpb 25,000 UNIT/250 ML BAG 10.269 UNIT IV (14:19)
[2025-09-20 14:23] LABS: Troponin I < 0.002 ng/mL (0.0-0.045)
[2025-09-20] MEDS: HEPARIN SOD INJ 5000 UNIT/ML VIAL 4000 UNIT IV ×2 (14:26→21:31)
--- NOTE | 2025-09-20 16:27 | ESPR_ITS ---
Subjective Subjective Interval history: pt with osteo of foot and uncontrolle dm. Exam Vital Signs Temp Pulse Resp BP Pulse Ox O2 Del Method O2 Flow Rate 97.0 F 96 17 126/76 98 Room Air 10 09/20/25 12:00 09/20/25 12:00 09/20/25 12:00 09/20/25 12:00 09/20/25 12:00 09/20/25 12:00 09/19/25 14:10 Narrative Exam both feet wrapped. ulcer on bottom of rt foot noted. pt states ulcers on L leg are more recent. will check circulation in case that is affected. a1c of >14 noted. prior hiv and hep c neg in 2023 Objective - Internal Medicine Labs 09/20/25 10:01 09/20/25 10:01 Labs: Laboratory Results - last 24 hr 09/20/25 09/20/25 09/20/25 05:40 10:00 10:01 WBC 12.2 H 12.4 H RBC 2.75 L 2.86 L Hgb 8.0 L 8.2 L Hct 24.3 L 25.6 L MCV 88 90 MCH 29.1 28.7 MCHC 32.9 32.0 RDW Std Deviation 48.0 H 48.0 H Plt Count 329 342 Neut % (Auto) 72 72 Lymph % (Auto) 17 18 [place] % (Auto) 9 7 Eos % (Auto) 1 1 Baso % (Auto) 0 0 Neut # (Auto) 8.8 H 9.0 H Lymph # (Auto) 2.0 2.2 [place] # (Auto) 1.0 H 0.9 H Eos # (Auto) 0.2 0.2 Baso # (Auto) 0.0 0.0 Immature Gran # (Auto) 0.19 H 0.19 H Absolute Nucleated RBC 0.00 0.00 Immature Gran % 2 H 2 H Nucleated RBC % 0 0 PT 11.7 INR 1.1 APTT 26.2 Sodium 135 L 138 Potassium 4.0 4.3 Chloride 101 103 Carbon Dioxide 25.6 26.1 Anion Gap 8 9 BUN 8 L 8 L Creatinine 0.6 0.6 Estim Creat Clear Calc 235.4 235.4 eGFR > 60 > 60 BUN/Creatinine Ratio 13 13 Glucose 206 H 89 D Calculated Osmolality 274 L 272 L Lactic Acid 2.2 H Calcium 7.3 L 7.8 L Corrected Calcium 8.5 8.8 Phosphorus 3.2 Magnesium 1.9 Total Bilirubin 0.5 0.4 AST 24 24 ALT 14 15 Alkaline Phosphatase 151 H D 162 H Troponin I < 0.002 Total Protein 5.6 L 6.0 Albumin 2.5 L 2.7 L Globulin 3.1 3.3 Albumin/Globulin Ratio 0.8 L 0.8 L 09/20/25 13:45 WBC RBC Hgb Hct MCV MCH MCHC RDW Std Deviation Plt Count Neut % (Auto) Lymph % (Auto) [place] % (Auto) Eos % (Auto) Baso % (Auto) Neut # (Auto) Lymph # (Auto) [place] # (Auto) Eos # (Auto) Baso # (Auto) Immature Gran # (Auto) Absolute Nucleated RBC Immature Gran % Nucleated RBC % PT INR APTT Sodium Potassium Chloride Carbon Dioxide Anion Gap BUN Creatinine Estim Creat Clear Calc eGFR BUN/Creatinine Ratio Glucose Calculated Osmolality Lactic Acid 1.9 Calcium Corrected Calcium Phosphorus Magnesium Total Bilirubin AST ALT Alkaline Phosphatase Troponin I < 0.002 Total Protein Albumin Globulin Albumin/Globulin Ratio ABG Interpretation ABG results: 09/16/25 20:09 VBG pH 7.50 VBG pCO2 25 L D VBG pO2 83 H VBG Base Excess -3 Assessment & Plan A&P Narrative osteo of foot dm, II, a1c >14 optimize dm control ok for 6 weeks of rocephin 2 gm iv daily and po doxy 100 bid for same duration do weekly cbc, renal panel, esr and remove line at end of rx will see again prn Time Spent With Patient Time: Total time spent is greater than 50% in coordination of care (as documented) at patient's floor/unit and/or counseling patient:
--- NOTE | 2025-09-20 16:28 | XR_ITS ---
Examination: Arterial duplex lower extremity study. Date and time of exam: September 20, 2025, 1636 hours INDICATIONS: Nonhealing ulcers bilateral feet 2 years Findings: Duplex sonographic imaging of the lower extremity arteries using B-mode/Aguirre scale imaging and Doppler spectral analysis and color flow. Ankle brachial indices not performed Right common femoral artery demonstrates biphasic flow. Right superficial femoral artery demonstrates monophasic flow. Right popliteal artery demonstrates biphasic flow. Right posterior tibial artery demonstrated monophasic flow. Left common femoral artery demonstrates monophasic flow. Left superficial femoral artery demonstrates monophasic flow. Left popliteal artery demonstrates monophasic flow. Left posterior tibial artery demonstrated monophasic flow. Impression: Severe peripheral obstructive arterial disease, consider correlation with CTA abdominal aorta iliofemoral runoff post intravenous contrast
--- NOTE | 2025-09-20 18:30 | ESCONSULT_ITS ---
RE: ARMANDO HERRERA : 1985 DATE OF CONSULTATION: 09/20/2025 REFERRING PHYSICIAN: Kourtney Brewer REASON FOR CONSULTATION: Osteomyelitis of the left foot with ulcer on the right foot as well and poorly controlled diabetes. HISTORY OF PRESENT ILLNESS: The patient is 40-years of age. Last year I saw him and he had about an HIV test and hep c test done at that time, they were negative. His A1c was greater than 14 here recently and he has a left foot ulcer that is relatively recent and a right foot ulcer that is more chronic. PAST SURGICAL HISTORY: None. ALLERGIES: NONE KNOWN. IMMUNIZATIONS: Last tetanus is about a year ago. He does take a flu shot every year. He has had 3 COVID vaccines and has had pneumococcal vaccine. FAMILY HISTORY: Positive for diabetes, hypertension and cancer. SOCIAL HISTORY: He lives with his and children and has not worked for a couple of years. PHYSICAL EXAMINATION: On his exam, patient's feet are wrapped. He is alert cooperative but complains of some nausea. this may be from any of a variety of his issues. If he has too much nausea, he may have to stop ithe doxy as the doxycycline is somewhat empiric. There are no positive cultures so all treatment is empiric. ASSESSMENT: Osteomyelitis of the foot by imaging with active ulcers and some edema and no positive cultures of any kind. RECOMMENDATIONS: The patient should improve control of his diabetes if he wants to live longer and have no other problems. I am going to check a circulation test but if that is negative and there are no other problems, he may go home on Rocephin 2 g daily and doxycycline 100 mg p.o. b.i.d. for 6 weeks or through 10/28/2025. I will see him again on a p.r.n. basis. DT: 16:40:33 TT: 17:57:00 Ref: [id number] - TID: [id number] MTDD
[2025-09-20] MEDS: ONDANSETRON INJ 2 MG/ML INJ 2 ML 4 MG IVP (18:32)
[2025-09-20] MEDS: MORPHINE SULF INJ 4 MG/ML VIAL 2 MG IVP (20:38)
[2025-09-20] MEDS: ATORVASTATIN CALCIUM 20 MG TABLET 80 MG PO (20:38)
[2025-09-20] MEDS: INSULIN DEGLUDEC 5 UNIT/0.05 ML (PER 5 UNITS) 65 UNIT SC (20:39)
[2025-09-20] MEDS: SOD HYPOCHLORITE 1/4 STR 473 ML BTL IRRIG (20:39)
[2025-09-20 20:52] LABS: Partial Thromboplastin Time 27.6 Seconds (22.0-36.0)
[2025-09-20 20:54] LABS: Troponin I < 0.002 ng/mL (0.0-0.045)
[2025-09-21] VITALS: BP 135/82; PULSE 105; PULSE 110; RESP 36; TEMP 37.4; O2SAT 94
[2025-09-21] MEDS: MELATONIN 3 MG TABLET 6 MG PO (00:50)
[2025-09-21 03:08] LABS: Partial Thromboplastin Time 29.8 Seconds (22.0-36.0)
[2025-09-21] MEDS: HEPARIN SOD INJ 5000 UNIT/ML VIAL 4000 UNIT IVP (03:27)
[2025-09-21 04:00] VITALS: BP 136/84; PULSE 100; PULSE 99; RESP 21; TEMP 37.9; O2SAT 95
[2025-09-21 04:58] VITALS: BMI 35.2
[2025-09-21 05:30] VITALS: PULSE 97; TEMP 37.2
[2025-09-21 06:19] LABS: Basophils # (Auto) 0.0 Thou/mm3 (0.0-0.2); Basophils % (Auto) 0 % (0-2.5); Eosinophils # (Auto) 0.2 Thou/mm3 (0.0-0.5); Eosinophils % (Auto) 1 % (0-10); Hematocrit 23.6 % (41.0-53.0); Immature Granulocytes Auto 0.22 Thou/mm3 (0.00-0.00); Lymphocytes # (Auto) 2.4 Thou/mm3 (1.0-4.8); Lymphocytes % (Auto) 19 % (10-50); Mean Corpuscular HGB Conc 31.8 g/dl (31.0-37.0); Mean Corpuscular Hemoglobin 28.1 pg (25.0-35.0); Mean Corpuscular Volume 88 fL (80-100); Monocytes # (Auto) 0.8 Thou/mm3 (0.0-0.8); Monocytes % (Auto) 6 % (0-12); Neutrophils # (Auto) 9.2 Thou/mm3 (1.8-7.7); Neutrophils % (Auto) 71 % (37-80); Nucleated Red Blood Cell # 0.00 Thou/mm3 (0.00-0.00); Nucleated Red Blood Cell % 0 /100 WBC (0); Platelet Count 418 Thou/mm3 (140-440); RDW Standard Deviation 47.8 fL (35.1-43.9); Red Blood Count 2.67 Miln/mm3 (4.50-5.90); White Blood Count 12.9 Thou/mm3 (3.8-10.6)
[2025-09-21 06:35] LABS: Hemoglobin 7.5 g/dL (13.5-16.0)
[2025-09-21 06:59] LABS: Alanine Aminotransferase 13 U/L (10-49); Albumin, Serum 2.3 gm/dL (3.5-5.0); Albumin/Globulin Ratio 0.7 (1.2-2.2); Alkaline Phosphatase 138 U/L (46-116); Anion Gap 8 (7-16); Aspartate Amino Transferase 22 U/L (0-34); BUN/Creatinine Ratio 22 Ratio (12-20); Bilirubin,Total 0.3 mg/dL (0.3-1.2); Blood Urea Nitrogen 13 mg/dL (9-23); Calcium 7.1 mg/dL (8.3-10.6); Calcium (Corrected) 8.5 mg/dL (8.5-10.1); Carbon Dioxide 25.0 mMol/L (20.0-31.0); Chloride 103 mMol/L (98-107); Creatinine (Component) 0.6 mg/dL (0.6-1.3); Estimated Creatinine Clearance 231.7 mL/min (>60); Globulin 3.1 gm/dL (2.3-3.5); Glucose 171 mg/dL (74-106); Magnesium 1.9 mg/dL (1.6-2.6); Osmolality,Calculated 276 (275-295); Phosphorous 3.7 mg/dL (2.4-5.1); Potassium 4.8 mMol/L (3.4-5.1); Sodium 136 mMol/L (136-145); Total Protein 5.4 gm/dL (5.7-8.2); eGFR > 60 See Note
--- NOTE | 2025-09-21 07:49 | PC.NURSE ---
notified MD De La Torre blood glucose thia am 136 and 10u of lispro ordered for this am, per hold dose of lispro
[2025-09-21] MEDS: cefTRIAXone/D5w 2gm 2 GM/50 ML BAG IV (07:57)
[2025-09-21] MEDS: ASPIRIN EC 81 MG TABEC PO (07:57)
[2025-09-21] MEDS: DOXYCYCLINE INJ 100 MG in SODIUM CHLORIDE 0.9% (POP) 100 ML IV (07:57)
[2025-09-21] MEDS: CLOPIDOGREL BISULFATE 75 MG TABLET PO (07:58)
[2025-09-21] MEDS: ACETAMINOPHEN 325 MG TABLET 650 MG PO (07:58)
[2025-09-21 08:00] VITALS: BP 111/72; PULSE 90; PULSE 96; RESP 16; TEMP 36.6; O2SAT 99
[2025-09-21] MEDS: MAGNESIUM OXIDE 400 MG TABLET PO (08:45)
[2025-09-21] MEDS: MORPHINE SULF INJ 4 MG/ML VIAL 2 MG IVP (08:45)
--- NOTE | 2025-09-21 10:16 | PC.SS ---
SS met with pt and who explained phone appointment with PCP, Dr. Damon Ortega from [facility] was not successful. Receptions explained pt has to follow up in person for appointment. SS spoke to different players club representative Alesia from [facility] to schedule pt an appointment with Dr. Damon Ortega for ThursdaySeptember 26 at 9:45am. Pt and are aware. Transfer nurse, Shannan is aware. Physician team is aware. Pt is now requesting a bedside commode. Pt is aware SS is unable to guarantee DME.
--- NOTE | 2025-09-21 10:27 | PC.SS ---
SS has faxed commode to [employer]
[2025-09-21 12:00] VITALS: BP 107/63; PULSE 85; PULSE 93; RESP 17; TEMP 35.9; O2SAT 94
[2025-09-21] MEDS: INSULIN LISPRO (AdmeLOG) 1 UNIT/0.01 ML UNIT 10 UNIT SC (12:33)
--- NOTE | 2025-09-21 13:03 | EVENTNT_ITS ---
Documentation for date of: 09/21/25 Event Note Event Note: I was called to bedside by patient's nurse that patient Hiram Partida would like to leave AGAINST MEDICAL ADVICE. He would like to leave AGAINST MEDICAL ADVICE because he is tired of being in the hospital and wants to go to [facility] for a second opinion & see his children. Patient was counseled extensively on the importance of staying in the hospital for IV antibiotics and further evaluation of left foot cellulitis/abscess/osteomyelitis which is pending reevaluation for possible amputation. Patient declines further treatment and wants to leave the hospital. Patient was advised his infection could lead to permanent disability and . Patient showed understanding of this and was able to repeat the risks back to the medical staff. Patient was also advised to stay hospitalized for further evaluation by cardiology although patient refuses. Patient allowed us to treat him to the extent that he would allow and will leave AMA. He was advised he is welcome to return to the emergency room at anytime. Patient was allowed time to ask questions and all questions answered to satisfaction. We will have to remove PICC line prior to patient leaving. Dr. Yazmin MD
--- NOTE | 2025-09-21 13:09 | PC.NURSE ---
pt leaving AMA Dr. Arce at bedside and aware, CN aware, pt alert and oriented x4 gcs 15 pt educated on risks , pt verbalized understanding
--- NOTE | 2025-09-21 13:10 | PD.RESEVENT ---
Documentation for date of: 09/21/25 Event Note Event Note: Patient was admitted for management of sepsis secondary to left foot osteomyelitis in the setting of uncontrolled diabetes mellitus and, later, found out to have severe peripheral obstructive arterial disease at lower extremity. Patient received incision and drainage 2 times on his left foot, however, there was concern for progressive infection and possible need for future amputation. During the stay, patient was experiencing fever spikes, elevated WBC count despite using IV antibiotics. Risk of sepsis progression remains high. Patient has been counseled on ongoing need for IV antibiotics, vascular evaluation, and close monitoring. On 09/21, patient advised that leaving the hospital Against Medical Advice, may result in serious harm, including: rapid progression of infection, sepsis and septic shock, limb loss/amputation, permanent disability, and risk of within 24-48 hours if infection worsens. Patient demonstrated understanding of the risks and was able to verbalize back the nature and severity of the condition and consequences of leaving. Patient evaluated and determined to have capacity to make medical decisions at time of discussion. Patient is alert, oriented, and understands the risks and benefits of continued treatment versus discharge. Despite clear explanation of medical risks, patient states desire to leave the hospital Against Medical Advice. Assessment and plan discussed with my attending physician Dr. Arce and Dr. Quinonez (PGY-2) Dr. De La Torre (PGY-1) - Internal medicine resident
--- NOTE | 2025-09-21 13:11 | PC.NURSE ---
IV and central line removed
--- NOTE | 2025-09-21 14:39 | ESPR_ITS ---
Documentation for date of: 09/21/25 Subjective Subjective Interval history: Patient was admitted for management of left foot osteomyelitis in the setting of uncontrolled diabetes mellitus and, later found to have severe peripheral obstructive arterial disease in lower extremity from US arterial duplex LE (09/20/2025), with concern for progressive infection and possible need for future amputation. During the stay, patient was experiencing fever spikes, elevated WBC count despite using IV antibiotics. Risk of sepsis progression remains high. Patient has been counseled on ongoing need for IV antibiotics, vascular evaluation, and close monitoring. On 09/21, patient advised that leaving the hospital Against Medical Advice may result in serious harm, including: rapid progression of infection, sepsis and septic shock, limb loss/amputation, permanent disability, and risk of within 24-48 hours if infection worsens. Patient demonstrated understanding of the risks and was able to verbalize back the nature and severity of the condition and consequences of leaving. Patient evaluated and determined to have capacity to make medical decisions at time of discussion. Patient is alert, oriented, and understands the risks and benefits of continued treatment versus discharge. Despite clear explanation of medical risks, patient states desire to leave the hospital Against Medical Advice. Exam Vital Signs Temp Pulse Resp BP Pulse Ox O2 Del Method O2 Flow Rate 96.6 F L 93 17 107/63 94 L Room Air 10 09/21/25 12:00 09/21/25 12:00 09/21/25 12:00 09/21/25 12:00 09/21/25 12:00 09/21/25 12:00 09/19/25 14:10 Narrative Exam General: No acute distress, well nourished, AAO x3 Eye: PERRL, EOMI, normal conjunctiva, no scleral icterus HENT: Normocephalic, atraumatic, hearing intact to conversation at normal volume, moist oral mucosa Neck: Supple, non-tender, no JVD, no lymphadenopathy Lungs: Non-labored respirations, symmetric chest rise, Clear to auscultate bilaterally, No wheezing, rhonchi, crackles Heart: Peripheral pulses intact bilaterally, Regular Rate and Rhythm. Abdomen: Soft, non-tender, non-distended, no palpable masses Musculoskeletal/Skin: Right foot: Distal plantar surface shows a dry eschar; no swelling; dorsalis pedis pulse palpable. Left foot: wounds packed and covered with adaptic,fluffs and a kerlix roll. Psychiatric: Cooperative, appropriate mood and affect, Awake and alert, not agitated Neuro: Cranial nerves II-XII grossly intact. Strength 5/5 throughout. Sensations intact to light touch. Objective Labs 09/21/25 05:30 09/21/25 05:30 Labs: Laboratory Results - last 24 hr 09/20/25 09/21/25 09/21/25 20:20 02:39 05:30 WBC 12.9 H RBC 2.67 L Hgb 7.5 L Hct 23.6 L MCV 88 MCH 28.1 MCHC 31.8 RDW Std Deviation 47.8 H Plt Count 418 D Neut % (Auto) 71 Lymph % (Auto) 19 [place] % (Auto) 6 Eos % (Auto) 1 Baso % (Auto) 0 Neut # (Auto) 9.2 H Lymph # (Auto) 2.4 [place] # (Auto) 0.8 Eos # (Auto) 0.2 Baso # (Auto) 0.0 Immature Gran # (Auto) 0.22 H Absolute Nucleated RBC 0.00 Immature Gran % 2 H Nucleated RBC % 0 APTT 27.6 29.8 Sodium 136 Potassium 4.8 D Chloride 103 Carbon Dioxide 25.0 Anion Gap 8 BUN 13 Creatinine 0.6 Estim Creat Clear Calc 231.7 eGFR > 60 BUN/Creatinine Ratio 22 H Glucose 171 H D Calculated Osmolality 276 Calcium 7.1 L Corrected Calcium 8.5 Phosphorus 3.7 Magnesium 1.9 Total Bilirubin 0.3 AST 22 ALT 13 Alkaline Phosphatase 138 H D Troponin I < 0.002 Total Protein 5.4 L Albumin 2.3 L Globulin 3.1 Albumin/Globulin Ratio 0.7 L 09/21/25 09:20 WBC RBC Hgb Hct MCV MCH MCHC RDW Std Deviation Plt Count Neut % (Auto) Lymph % (Auto) [place] % (Auto) Eos % (Auto) Baso % (Auto) Neut # (Auto) Lymph # (Auto) [place] # (Auto) Eos # (Auto) Baso # (Auto) Immature Gran # (Auto) Absolute Nucleated RBC Immature Gran % Nucleated RBC % APTT Cancelled Sodium Potassium Chloride Carbon Dioxide Anion Gap BUN Creatinine Estim Creat Clear Calc eGFR BUN/Creatinine Ratio Glucose Calculated Osmolality Calcium Corrected Calcium Phosphorus Magnesium Total Bilirubin AST ALT Alkaline Phosphatase Troponin I Total Protein Albumin Globulin Albumin/Globulin Ratio ABG Interpretation ABG results: 09/16/25 20:09 VBG pH 7.50 VBG pCO2 25 L D VBG pO2 83 H VBG Base Excess -3 Quality Measures Quality Measures sepsis Current suspected stage: sepsis Possible source: skin/soft tissue and wound Blood cultures ordered: yes Antibiotic ordered: Yes Assessment & Plan Plan 40-year-old male with past medical history of hypertension, diabetes, hyperlipidemia presented to the ED with complaint of left foot redness, swelling, pain since 3 days associated with fever, chills,vomiting and Diarrhea. He was admitted for MSSA secondary to Left foot Osteomyelitis. #MSSA bacteremia 2/ #Left foot osteomyelitis. History of right foot osteomyelitis 1 year ago, diabetes, history of trauma to the left foot on 09/09. Fevers, chills, vomiting, diarrhea, decreased appetite. Pulse rate 125, temperature 100.7 WBC 29.2 with left shift, Pro-[place] 5.33, ESR 78. -Blood Cx: 1st Blood Culture 09/14: Staph Aureus x1, 2nd Blood Culture 09/16: Staph Aureus x2, 3rd blood culture 09/18: Negative for 24hrs. -Blood culture from 09/16 prelim showing GPC Repeat CT scan of the left foot showing left distal fifth metatarsal osteomyelitis pain concern for soft tissue infection with gas-forming organisms. -PICC line placed 09/18 -Gen surgery, Dr. Tafoya, performed incision and drainage of abscesses at multiple sites on the left foot (distal lateral, heel lateral, heel medial, and distal medial), excision of necrotic skin. Four fluctuant areas containing pus. Total pus drained 40 cc. Patient tolerated procedure well. -ECHO (09/16/2025): Normal left ventricular size and function. Approximate ejection fraction is 55-60%. Normal right ventricular size and function. Trace mitral and trace tricuspid regurgitation noted. No pericardial effusion. -Patient received second incision and drainage of the left foot on 09/19/2025 Plan - Patient is on IV ceftriaxone 2 g IV daily and doxycycline IV 100 mg twice daily. - On discharge, he will need to complete 6 weeks course of abx (IV ceftriaxone 1g qd and PO Doxycycline 100mg bid) - Wound care #? Unstable Angina -Patient had rapid event at 9:53 AM 09/20/2025 for new onset acute 9 out of 10 chest pain that is nonradiating and gets worse when breathing in. -At the time, vitals were 112/78, HR 94, RR 24, 100% O2 sats on room air, blood glucose 94. CBC, CMP, lactate, troponin, stat CXR, stat EKG, echo has been ordered. -Patient was given aspirin 325 mg p.o. x 1 and IV morphine 1 mg x 1. -First Troponin was <0.002. Lactic acid level 2.2. WBC in decresing trend from 14.7 to 12.4. bicarb level normal 26.1, Anion Gap normal 9. EKG showed T inversions. Plan: -Per cardiology recommendations, started on aspirin 81mg po qd, plavix 75mg qd, and heparin drip. -Consulted Cardiology, Dr. Garcia, appreciate recommendtions. #T2DM -Initial blood glucose levels are 399, BHB 5.4 with normal anion gap. -Glucose level 09/18: 280 09/19:157 -HbA1c (09/17/2025): >14 Plan: -insulin Degludec 65 units -Premeal insulin lispro 10 units has been added -Needs Ozempic injection for tighter weight control. -step 3 of sliding scale. -Aiming for stricter blood glucose control. -Educated on the footcare. #Hypertension. Currently normotensive . ?Resume his home medication lisinopril 20 mg at later time when appropriate. #Hyperlipidemia Starting on his home medication atorvastatin 10 mg Continue to monitor. #Peripheral neuropathy He stopped taking gabapentin at his home. ?Continue to monitor. Health Maintenance: Diet: low carb consistent GI prophylaxis: none DVT prophylaxis: heparin 5000 BID CODE STATUS: FULL Disposition: Tele Assessment and plan discussed with my attending physician Dr. Arce and Dr. uQinonez (PGY-2) Dr. De La Torre (PGY-1) - Internal medicine resident Attending Provider Attestation/Addendum I have examined the patient, reviewed labs and imaging findings, discussed the case with the resident(s), and reviewed entered orders. I agree with the plan of care as outlined in this note. Dr. Yazmin MD
== END 2025-09-21 13:20 | disposition left against medical advice (07) | DRG 317 ==
LOC: SERX 17:49 → SERHOLD 20:34 → S2NX 22:20
PROVIDERS: Emergency Medicine; Internal Medicine; Student in an Organized Health Care Education/Training Program; Surgery; Admitting Provider Student in an Organized Health Care Education/Training Program; Emergency Provider Emergency Medicine; Visit Provider Student in an Organized Health Care Education/Training Program
DX: E11.69 Type 2 diabetes mellitus with other specified complication (principal); L02.612 Cutaneous abscess of left foot; L03.116 Cellulitis of left lower limb; I10 Essential (primary) hypertension; E78.5 Hyperlipidemia, unspecified; E11.65 Type 2 diabetes mellitus with hyperglycemia; M86.172 Other acute osteomyelitis, left ankle and foot; E87.8 Other disorders of electrolyte and fluid balance, not elsewhere classified; D64.89 Other specified anemias; E11.40 Type 2 diabetes mellitus with diabetic neuropathy, unspecified; B95.61 Methicillin susceptible Staphylococcus aureus infection as the cause of diseases classified elsewhere; R78.81 Bacteremia; L97.519 Non-pressure chronic ulcer of other part of right foot with unspecified severity; L97.529 Non-pressure chronic ulcer of other part of left foot with unspecified severity; E11.621 Type 2 diabetes mellitus with foot ulcer; Z53.29 Procedure and treatment not carried out because of patient's decision for other reasons; B96.89 Other specified bacterial agents as the cause of diseases classified elsewhere; Z79.2 Long term (current) use of antibiotics; Z79.4 Long term (current) use of insulin; Z87.891 Personal history of nicotine dependence
CPT/HCPCS: 36415; 71045; 73700; 80053; 80061; 80069; 80202; 80329; 81001; 82010; 82803; 83036; 83605; 83690; 83735; 84100; 84145; 84484; 85025; 85610; 85652; 85730; 86140; 87040; 87070; 87075; 87077; 87186; 87205; 87811; 93005; 93306; 93925; 96365; 96366; 96372; 96375; 97161; 99284; A4217; A4649; C1751; C1894; J0131; J0696; J1642; J1644; J1815; J2250; J2270; J2371; J2405; J2543; J2598; J2704; J2765; J3010; J3373; J3480; J3490; J7030; J7050; J7120; A9270; G0480; J1596

== ENCOUNTER 2025-10-02 14:27 | Inpatient (IN) | payer MEDICAID, SELFPAY ==
[2025-10-02] VITALS (13 sets, daily range): BP systolic 90–133; BP diastolic 50–80; PULSE 85–108; RESP 12–96; TEMP 36.3–37.5; O2SAT 95–100; BMI 30.7; BMI 28.5
--- NOTE | 2025-10-02 15:04 | EDNOTE_ITS ---
<Statement entered by Danielle Lewis MD - 10/02/25 17:57> As co-signing physician, I was present and available for consult prn. I concur with the plan and care as documented by the midlevel provider. Lower Extremity Injury RME/HPI General Chief Complaint: Ankle/Foot Injury Stated Complaint: TO BE ADMITTED FOR AMPUTATION LEFT FOOT Time Seen by Provider: 10/02/25 14:34 Source: patient Arrival date/time: 10/02/25 14:27 40-year-old male with a history of hyperlipidemia, type 2 diabetes, hypertension presents to the emergency room for a scheduled surgery of amputation of his left foot Mode of arrival: ambulatory Limitations: no limitations Related Data Home Medications ?Medication ?Instructions ?Recorded ?Confirmed lisinopril 5 mg tablet 5 mg PO DAILY 09/22/2409/17 metformin 500 mg tablet 500 mg PO QAM 09/22/2409/17 Previous Rx's ?Medication ?Instructions ?Recorded flash glucose scanning reader #1 ea 09/24/24 (FreeStyle Courtney 2 Burns) flash glucose sensor (FreeStyle #1 ea 09/24/24 Courtney 2 Sensor kit) insulin glargine 100 unit/mL 65 unit (0.65 mL) SCi QDA Y #10 mL 09/29/24 subcutaneous solution (Lantus U-100 Insulin) doxycycline monohydrate 100 mg 100 mg PO BID 6 weeks # 84 caps 09/18/25 capsule aspirin 81 mg tablet,delayed 81 mg PO QDAY 1 month #30 tabs 09/21/25 release atorvastatin 40 mg tablet (Lipitor) 40 mg PO HS 1 jamil h #30 tabs 09/21/25 Allergies Allergy/AdvReac Type Severity Reaction Status Date / Time No Known Allergies Allergy Verified 10/02/25 14:30 Review of Systems Review of Systems Systems Reviewed: All systems reviewed, normal except as documented Constitutional Constitutional: Reports system reviewed and no additional complaints, except as documented, Denies fatigue, Denies fever(s), Denies headache(s) and Denies weakness Eyes Eyes: Reports system reviewed and no additional complaints, except as doc umented, Denies blurry vision and Denies change in vision ENT Ears, Nose, Mouth, and Throat: Reports system reviewed and no additional complaints, except as documented, Denies otalgia, Denies headache(s), Denies nasal congestion, Denies throat swelling and Denies vertigo Cardiovascular Cardiovascular: Reports system reviewed and no additional complaints, except as documented, Denies chest pain, Denies dyspnea and Denies dyspnea on exertion Respiratory Respiratory: Reports system reviewed and no additional complaints, except as documented, Denies chest congestion, Denies cough, Denies dyspnea, Denies dyspnea on exertion and Denies wheezing Gastrointestinal Gastrointestinal: Reports system reviewed and no additional complaints, except as documented, Denies abdominal pain, Denies cramping, Denies nausea and Denies vomiting Genitourinary Genitourinary: Reports system reviewed and no additional complaints, except as documented, Denies dysuria and Denies hematuria Musculoskeletal Musculoskeletal: Reports system reviewed and no additional complaints, except as documented and Denies back pain Integumentary/Breasts Skin/Breast: Reports system reviewed and no additional complaints, except as documented and Reports wounds Neurologic Neurologic: Reports system reviewed and no additional complaints, except as documented, Denies confusion, Denies headache(s), Denies lack of coordination, Denies vertigo and Denies weakness Psychiatric Psychiatric: Reports system reviewed and no additional complaints, except as documented, Denies anxiety, Denies confusion, Denies depression, Denies paranoia, Denies suicidal ideation and Denies tactile hallucinations Endocrine Endocrine: Reports system reviewed and no additional complaints, except as documented and Denies fatigue Hematologic/Lymphatic Hematologic/Lymphatic: Reports system reviewed and no additional complaints, except as documented and Denies lymphadenopathy Allergic/Immunologic Allergic/Immunologic: Reports system reviewed and no additional complaints, except as documented, Denies throat swelling, Denies urticaria and Denies wheezing Past Medical History Past Medical History NEUROLOGIC: Negative Seizures CARDIAC: Positive Hypercholesterolemia and Hypertension; Negative Cardiac Disorders or Congestive Heart Failure RESPIRATORY: Negative Chronic Obstructive Pulmonary Disease (COPD) or Asthma GENITOURINARY: Negative Renal Disease ENDOCRINE: Positive Diabetes Mellitus Type 2; Negative Diabetes Mellitus Type 1 HEMATOLOGIC: Negative Sickle Cell Disease PSYCHO/SOCIAL: Positive Anxiety OTHER HISTORY: Positive Falls; Negative Hospitalization, Blood Transfusions or Anesthesia Reactions Family History FAMILY HISTORY: Negative Family Cardiac Disorders Social History SMOKING STATUS: Never smoker SUBSTANCE USE: does not use ED Exam General Limitations: Present no limitations General appearance: Present alert and in no apparent distress Head Head exam: Present atraumatic Eye Eye exam: Present normal appearance, PERRL and EOMI ENT ENT exam: Present normal exam, normal oropharynx and mucous membranes moist Neck Neck exam: Present normal inspection, full ROM and trachea midline Chest Chest inspection: Present normal inspection and symmetric chest wall rise Respiratory Respiratory exam: Present normal lung sounds bilaterally Cardiovascular Cardiovascular exam: Present regular rate, normal rhythm and normal heart sounds Abdominal Exam Abdominal exam: Present soft and normal bowel sounds Extremities Exam Extremities exam: Present normal inspection and full ROM Back Exam Back exam: Present normal inspection and full ROM Neurological Exam Neurological exam: Present alert, oriented X3 and CN II-XII intact Psychiatric Psychiatric exam: Present normal affect and normal mood Skin Skin exam: Present warm, dry, intact and normal color Course Quality Measures none Orders Category Date Time Status NPO NOW Care 10/02/25 14:55 Active Diet NPO (NOW) Diet 10/02/25 14:55 Active CBC Stat Lab 10/02/25 14:55 Ordered CMP [Comprehensive Metabolic Panel] Stat Lab 10/02/25 14:55 Ordered PT [Prothrombin Time with INR] Stat Lab 10/02/25 14:55 Ordered PTT [Partial Thromboplastin Time] Stat Lab 10/02/25 14:55 Ordered Vital Signs Vital signs: Vital Signs Temperature 99.5 F 10/02/25 14:50 Pulse Rate 108 H 10/02/25 14:50 Respiratory Rate 18 10/02/25 14:50 Blood Pressure 114/77 10/02/25 14:50 Pulse Oximetry (%) 99 10/02/25 14:50 Oxygen Delivery Method Room Air 10/02/25 14:50 Extremity Injury, Lower MDM Narrative MDM Narrative:: 40-year-old male with a history of hyperlipidemia, type 2 diabetes, hypertension presents to the emergency room for a scheduled surgery of amputation of his left foot Patient is tachycardic at 108 bpm. Patient is afebrile Physical examination shows swollen tender left lower extremity. Patient was recently admitted for management of left foot osteomyelitis in the setting of uncontrolled diabetes mellitus and, later found to have severe peripheral obstructive arterial disease in lower extremity from US arterial duplex LE (09/20/2025), with concern for progressive infection. Today the patient is here for amputation of the left lower extremity. I spoke to Dr. Weiss the surgeon on- call and she states that she will take the patient up to surgery at 4 PM. Patient data External records reviewed:: [facility] previous records Clinical information provided by:: patient Social determinants that could affect healthcare access:: none Patient has the following chronic illnesses:: Type 2 diabetes How is presenting disease/condition affected by chronic disease/condition?: exacerbated by Evaluation data The following diagnostics were reviewed and interpreted by me:: lab results and radiology exam(s) Lab and/or radiology exams considered but not ordered:: Labs and radiology exams considered and ordered Interpretation Summary: N/A Medications / Prescriptions Medications or Prescriptions considered but not ordered:: No medication given Medication administrations:: No medication given Consultations Consultation(s) initiated? (list below): Yes Consultation #1 (Physician, Specialty, Details): Dr. Weiss Diagnosis Extremity Injury, Lower Differential Diagnosis: other (Osteomyelitis of the left lower extremity) Most likely diagnosis given after review of the tests above:: Osteomyelitis of the left lower extremity Admission Indicated Admission indicated?: indicated Admission Request Was there a request for admission?: Yes Admission Attestation Admission request attestation: Discussed case with [] from Hospitalist service regarding admission. Discussed patients ED course, exam findings, labs, and radiology results. The Hospitalist [agrees,declines] to accept the patient for admission. Disposition Plan Disposition Plan: Admit Discharge Plan Plan Patient Disposition: Admit Acute Care w/in Hospital Discharge Disposition comment: Stable Prescriptions/Referrals Prescriptions/Med Rec: No Action metformin 500 mg tablet 500 mg PO QAM Patient Comments: TAKE ONE TABLET BY MOUTH THREE TIMES DAILY WITH MEALS lisinopril 5 mg tablet 5 mg PO DAILY Patient Comments: TAKE ONE TABLET BY MOUTH DAILY (DME) FreeStyle Courtney 2 Burns Misc See Rx Instructions .Route Qty: 1 0RF Rx Instructions: As directed (DME) FreeStyle Courtney 2 Sensor Kit See Rx Instructions .Route Qty: 1 0RF Rx Instructions: As directed insulin glargine [Lantus U-100 Insulin] 100 unit/mL Solution 65 unit SCi QDAY Qty: 10 4RF doxycycline monohydrate 100 mg capsule 100 mg PO BID 42 Days Qty: 84 0RF aspirin 81 mg Tablet,Delayed Release (Dr/Ec) 81 mg PO QDAY 30 Days Qty: 30 0RF atorvastatin [Lipitor] 40 mg tablet 40 mg PO HS 30 Days Qty: 30 0RF Problem List Clinical Impression: Foot osteomyelitis, left Patient/Caregiver Discharge Instructions Print Language: Guamanian Stand Alone Forms: Wendy Award Info., Patient Portal Info Letter
[2025-10-02 15:24] LABS: Basophils # (Auto) 0.0 Thou/mm3 (0.0-0.2); Basophils % (Auto) 0 % (0-2.5); Eosinophils # (Auto) 0.1 Thou/mm3 (0.0-0.5); Eosinophils % (Auto) 1 % (0-10); Hematocrit 27.2 % (41.0-53.0); Hemoglobin 9.0 g/dL (13.5-16.0); Immature Granulocytes Auto 0.04 Thou/mm3 (0.00-0.00); Lymphocytes # (Auto) 2.0 Thou/mm3 (1.0-4.8); Lymphocytes % (Auto) 18 % (10-50); Mean Corpuscular HGB Conc 33.1 g/dl (31.0-37.0); Mean Corpuscular Hemoglobin 28.5 pg (25.0-35.0); Mean Corpuscular Volume 86 fL (80-100); Monocytes # (Auto) 0.6 Thou/mm3 (0.0-0.8); Monocytes % (Auto) 6 % (0-12); Neutrophils # (Auto) 8.1 Thou/mm3 (1.8-7.7); Neutrophils % (Auto) 75 % (37-80); Nucleated Red Blood Cell # 0.00 Thou/mm3 (0.00-0.00); Nucleated Red Blood Cell % 0 /100 WBC (0); Platelet Count 553 Thou/mm3 (140-440); RDW Standard Deviation 42.7 fL (35.1-43.9); Red Blood Count 3.16 Miln/mm3 (4.50-5.90); White Blood Count 10.8 Thou/mm3 (3.8-10.6)
[2025-10-02 15:38] LABS: INR 1.1 (0.9-1.3); Partial Thromboplastin Time 29.1 Seconds (22.0-36.0); Prothrombin Time 11.4 Seconds (9.0-12.2)
[2025-10-02 15:58] LABS: Alanine Aminotransferase 8 U/L (10-49); Albumin, Serum 4.0 gm/dL (3.5-5.0); Albumin/Globulin Ratio 1.0 (1.2-2.2); Alkaline Phosphatase 97 U/L (46-116); Anion Gap 7 (7-16); Aspartate Amino Transferase 13 U/L (0-34); BUN/Creatinine Ratio 22 Ratio (12-20); Bilirubin,Total 0.5 mg/dL (0.3-1.2); Blood Urea Nitrogen 20 mg/dL (9-23); Calcium 8.6 mg/dL (8.3-10.6); Calcium (Corrected) 8.6 mg/dL (8.5-10.1); Carbon Dioxide 27.1 mMol/L (20.0-31.0); Chloride 102 mMol/L (98-107); Creatinine (Component) 0.9 mg/dL (0.6-1.3); Estimated Creatinine Clearance 144.5 mL/min (>60); Globulin 4.0 gm/dL (2.3-3.5); Glucose 302 mg/dL (74-106); Osmolality,Calculated 285 (275-295); Potassium 3.8 mMol/L (3.4-5.1); Sodium 136 mMol/L (136-145); Total Protein 8.0 gm/dL (5.7-8.2); eGFR > 60 See Note
--- NOTE | 2025-10-02 16:32 | EDNOTE_ITS ---
<Statement entered by Danielle Lewis MD - 10/03/25 16:25> As co-signing physician, I was present and available for consult prn. I concur with the plan and care as documented by the midlevel provider. ED General RME/HPI General Chief complaint: Ankle/Foot Injury Stated complaint: TO BE ADMITTED FOR AMPUTATION LEFT FOOT Time Seen by Provider: 10/02/25 14:34 Source: patient Arrival date/time: 10/02/25 14:27 Left foot pain HPI chronic ulceration started from August 2025 after fall, progressive worsening opening ulcers in the foot. Patient is a poorly managed diabetic who denies fever chills or shortness of breath. Patient was referred over by Dr. Weiss, the surgeon for further evaluation. Patient has been n.p.o. since 2 of Thursday toast at 8 AM. He is awake alert oriented and Mode of arrival: ambulatory Limitations: no limitations Related Data Home Medications ?Medication ?Instructions ?Recorded ?Confirmed lisinopril 5 mg tablet 20 mg PO DAILY 09/22/2409/23 metformin 500 mg tablet 1,000 mg PO BID 09/22/2409/16 insulin lispro 100 unit/mL 1 sliding scale dose subcut AC 10/02/25 10/02/25 subcutaneous pen Previous Rx's ?Medication ?Instructions ?Recorded flash glucose scanning reader #1 ea 09/24/24 (FreeStyle Courtney 2 [place]) flash glucose sensor (FreeStyle #1 ea 09/24/24 Courtney 2 Sensor kit) insulin glargine 100 unit/mL 65 unit (0.65 mL) SCi QDA Y #10 mL 09/29/24 subcutaneous solution (Lantus U-100 Insulin) aspirin 81 mg tablet,delayed 81 mg PO QDAY 1 month #30 tabs 09/21/25 release atorvastatin 40 mg tablet (Lipitor) 40 mg PO HS 1 jamil h #30 tabs 09/21/25 Allergies Allergy/AdvReac Type Severity Reaction Status Date / Time No Known Allergies Allergy Verified 10/02/25 14:30 Review of Systems Review of Systems Narrative Review of Systems: GEN: No fever, no chills, no weight loss EYES: No discharge, no visual changes, no pain HEENT: No ear pain, no congestion, no sore throat PULM: No shortness of breath, no cough, no congestion CV: No chest pain, no dyspnea on exertion, no palpitations GI: No nausea, no vomiting, no diarrhea, no pain, no constipation : No frequency, no urgency, no dysuria MUSC/SKEL: + joint pain, no back pain SKIN: No rash PSYCH: No hallucinations, no depression HEME/LYMPH: No easy bleeding or bruising tendencies NEURO: No weakness, no headache Past Medical History Past Medical History NEUROLOGIC: Negative Seizures CARDIAC: Positive Hypercholesterolemia and Hypertension; Negative Cardiac Disorders or Congestive Heart Failure RESPIRATORY: Negative Chronic Obstructive Pulmonary Disease (COPD) or Asthma GENITOURINARY: Negative Renal Disease ENDOCRINE: Positive Diabetes Mellitus Type 2; Negative Diabetes Mellitus Type 1 HEMATOLOGIC: Negative Sickle Cell Disease PSYCHO/SOCIAL: Positive Anxiety OTHER HISTORY: Positive Falls; Negative Hospitalization, Blood Transfusions or Anesthesia Reactions Family History FAMILY HISTORY: Negative Family Cardiac Disorders Social History SMOKING STATUS: Never smoker SUBSTANCE USE: does not use ED Exam Narrative Physical exam: [General: Not in any acute distress Head normocephalic HEENT: Within acceptable limits Neck is supple nontender Chest equal chest rise nontender to palpation Respiratory: Clear to auscultation no wheezes crackles or rubs CV: Rate rhythm is regular no murmurs rubs or clicks Abdomen is distended secondary to body habitus soft nontender no masses positive bowel sounds all 4 quadrants Back: No CVA tenderness no spinous process tenderness from cervical spine thoracic and lumbar spine Skin: Pale intact no petechiae rash induration ulceration or crepitus Extremities: Moving all extremity against resistance cap refill less than 2 seconds neurosensory intact Neuro: Awake alert oriented x3 Glascow coma 15 no focal deficits] General Limitations: Present no limitations General appearance: Present alert and in no apparent distress Course Course Course Narrative: Patient's case discussed with the resident for Dr. Woodruff who agrees to accept the patient for admission. Quality Measures none Orders Category Date Time Status COVID-19 Screening Questionnaire NOW Care 10/02/25 15:08 Active Consent [Obtain Written Consent For:] .ONCE Care 10/02/25 15:30 Completed Decision to Admit X1 Care 10/02/25 15:08 Completed NPO NOW Care 10/02/25 14:55 Completed Consult to General Surgery Stat Cons 10/02/25 15:08 Ordered Consult to General Surgery Stat Cons 10/02/25 16:29 Ordered CBC Stat Lab 10/02/25 15:13 Completed CMP [Comprehensive Metabolic Panel] Stat Lab 10/02/25 15:13 Completed PT [Prothrombin Time with INR] Stat Lab 10/02/25 15:13 Completed PTT [Partial Thromboplastin Time] Stat Lab 10/02/25 15:13 Completed Type and Screen Stat Lab 10/02/25 16:08 Completed Sodium Chloride 0.9% 1000 ml [Ns] 1,000 ml Med 10/02/25 16:20 Discontinued IV 100 mls/hr Vital Signs Vital signs: Vital Signs Temperature 99.5 F 10/02/25 14:50 Pulse Rate 108 H 10/02/25 14:50 Respiratory Rate 18 10/02/25 14:50 Blood Pressure 114/77 10/02/25 14:50 Pulse Oximetry (%) 99 10/02/25 14:50 Oxygen Delivery Method Room Air 10/02/25 14:50 Discharge Plan Plan Patient Disposition: Admit Acute Care w/in Hospital Discharge Disposition comment: Stable Problem List Clinical Impression: Foot osteomyelitis, left PA/[employer]PERVIS[employer] Supervising Physician PA/[employer] Supervising Physician: Don Ferguson ENP MDM Medication Administration(s) Medication Administration History Acetaminophen (Acetaminophen 325 Mg Tablet) 650 mg PO Q6H PRN PRN Reason: PAIN SCALE 1-3 (mild Stop: 11/01/25 20:48 Hydrocodone Bitart/Acetaminophen (Hydrocodone/Apap 5/325 Tablet) 1 tab PO Q4H PRN PRN Reason: PAIN SCALE 4-10(Mod-Sev Stop: 10/07/25 20:48 Dextrose (Dextrose 50%-Water Inj 50 Ml Syringe) 25 ml IV Q15MIN PRN PRN Reason: BG 50-70 responsive npo pt Stop: 11/01/25 18:54 Dextrose (Dextrose 50%-Water Inj 50 Ml Syringe) 50 ml IV Q15MIN PRN PRN Reason: BG <50 OR BG <70 & pt unresponsive Stop: 11/01/25 18:54 Gabapentin (Gabapentin 300 Mg Capsule) 300 mg PO TID RONALD Stop: 11/01/25 21:59 Last Admin: 10/02/25 21:35 Dose: 300 mg Documented By: TATUM Glucagon (Glucagon Inj 1 Mg Vial) 1 mg IM Q15MIN PRN PRN Reason: BG <70, and no IV access Insulin Human Lispro (Insulin Lispro (Admelog) 1 Unit/0.01 Ml Unit) 0 unit SC ACHS RONALD; Protocol Stop: 11/01/25 21:14 Last Admin: 10/02/25 21:42 Dose: 5 unit Documented By: TATUM Co-signed By: FLORIAN Melatonin (Melatonin 3 Mg Tablet) 6 mg PO HS PRN PRN Reason: Insomnia Stop: 11/01/25 20:59 Morphine Sulfate (Morphine Sulf Inj 4 Mg/Ml Vial) 4 mg IVP Q4HR PRN PRN Reason: Breakthrough Pain Stop: 10/07/25 20:48 Ondansetron HCl (Ondansetron Inj 2 Mg/Ml Inj 2 Ml) 4 mg IVP Q6H PRN; Protocol PRN Reason: NAUSEA OR VOMITING Stop: 11/01/25 16:31 Discontinued Medications Albuterol/Ipratropium (Albuterol/Ipratropium (Duoneb) Rt Mary 3 Ml Nebu) 3 ml INH Q4HRRT PRN PRN Reason: SHORTNESS OF BREATH Stop: 10/03/25 18:51 Fentanyl Citrate (Fentanyl Cit Inj 50 Mcg/Ml Amp 2ml) 50 mcg IVP Q5M PRN PRN Reason: PAIN SCALE 4-6 (Moderate Stop: 10/02/25 20:52 Hydralazine HCl (Hydralazine Inj 20 Mg/Ml Vial) 10 mg IVP X1 ONE Stop: 10/02/25 20:52 Last Admin: 10/02/25 22:19 Dose: Not Given Documented By: TATUM Non-Admin Reason: Discontinued Hydromorphone HCl (Hydromorphone Inj 2 Mg/Ml Vial) 0.5 mg IVP Q10MIN PRN PRN Reason: severe pain 7-10 Stop: 10/02/25 20:52 Sodium Chloride (Ns) 1,000 mls @ 100 mls/hr IV .Q10H RONALD Stop: 11/01/25 16:19 Last Admin: 10/02/25 22:19 Dose: Not Given Documented By: TATUM Non-Admin Reason: Discontinued Promethazine HCl 12.5 mg/ (Sodium Chloride) 50.5 mls @ 2.5 mls/min IV Q30M PRN; Protocol PRN Reason: NAUSEA Stop: 10/02/25 20:52 Albumin Human (Albuminar-25 Ivpb) 12.5 gm in 50 mls @ 50 mls/hr IV X1 ONE Stop: 10/02/25 21:22 Last Admin: 10/02/25 20:30 Dose: 50 mls/hr Documented By: Insulin Human Lispro (Insulin Lispro (Admelog) 1 Unit/0.01 Ml Unit) 0 unit SC Q6HR RONALD; Protocol Stop: 11/02/25 00:00 Labetalol HCl (Labetalol Inj 5 Mg/Ml Vial 20 Ml) 5 mg IVP Q10MIN PRN PRN Reason: SBP >180 DBP>100 or HR >100 Stop: 10/02/25 20:52 Metoprolol Tartrate (Metoprolol Tartrate Inj 1 Mg/Ml Amp 5 Ml) 2.5 mg IVP Q5M PRN PRN Reason: HR >100 ' , max 6 doses . Hold if SBP< 100 mmhg Stop: 10/02/25 20:52 Ondansetron HCl (Ondansetron Inj 2 Mg/Ml Inj 2 Ml) 4 mg IVP X1 ONE; Protocol Stop: 10/02/25 18:53 Last Admin: 10/02/25 20:07 Dose: 4 mg Documented By:
--- NOTE | 2025-10-02 16:47 | PD.SURCONS ---
HPI Consult details History of present illness: 40M with HTN, HLD, DMII (A1c >14) presenting with left foot cellulitis, osteomyelitis of the distal 5th metatarsal as well as purulent drainage, s/p I&D 09/17, with persistent fever and swelling s/p repeat I&D with excisional debridement 09/19. Pt left here AMA and presented to , was planned for amputation there but also left AMA and requested that I personally perform surgery. He continues to have fever but otherwise no complaints Review of Systems Review of Systems ROS Unobtainable: All systems reviewed & no additional complaints except as documented Constitutional Constitutional: Denies headache(s) and Denies weakness ENT Ears, Nose, Mouth, and Throat: Denies headache(s) and Denies vertigo Neurologic Neurologic: Reports system reviewed and no additional complaints, except as documented, Denies confusion, Denies headache(s), Denies lack of coordination, Denies vertigo and Denies weakness Psychiatric Psychiatric: Denies confusion Meds Home Medications and Allergies Home Medications ?Medication ?Instructions ?Recorded ?Confirmed ?Type lisinopril 5 mg tablet 5 mg PO DAILY 09/22/24 09/17/25 History metformin 500 mg tablet 500 mg PO QAM 09/22/24 09/17/25 History Allergies Allergy/AdvReac Type Severity Reaction Status Date / Time No Known Allergies Allergy Verified 10/02/25 14:30 Exam Vital Signs Temp Pulse Resp BP Pulse Ox O2 Del Method 99.5 F 108 H 18 114/77 99 Room Air 10/02/25 14:50 10/02/25 14:50 10/02/25 14:50 10/02/25 14:50 10/02/25 14:50 10/02/25 14:50 Constitutional Constitutional: no acute distress Routine Respiratory Exam Respiratory: Present no resp distress Routine Extremities Exam Comments: LLE with necrotic tissue probing to bone at the medial, lateral and calcaneal aspects Results Results: Laboratory Laboratory results: results reviewed Assessment & Plan Plan 40M with HTN, HLD, DMII (A1c >14) presenting with left foot cellulitis, osteomyelitis of the distal 5th metatarsal as well as purulent drainage, s/p I&D 09/17, with persistent fever and swelling s/p repeat I&D with excisional debridement 09/19. Given the severity of his soft tissue infection probing to bone in multiple places, it is exceedingly unlikely these will heal and so I recommended amputation. I explained risks of bleeding, wound infection and wound healing difficulties. All questions were answered and pt is agreeable to proceeding
--- NOTE | 2025-10-02 16:50 | ESHP_ITS ---
<Statement entered by Sheldon Duran MD - 10/16/25 15:17> I reviewed above note and agree with findings and plans. I have also personally examined the patient with medicine team and went over assessment and plan with medical team including campus interviews intern and resident physician. <Statement entered by Arlene Street MD - 10/03/25 07:05> Patient was seen and examined by me personally. I have directly supervised and reviewed documentation by the team resident and agree with its findings with any exceptions or additional findings as below. Plan of care was discussed with the attending, Dr. Duran. Arlene Street, PGY-3 Documentation for date of: 10/02/25 HPI History of Present Illness History of present illness: Patient is a 40-year-old M with a PMH of poorly controlled T2DM (last HgbA1c >14.0 on 09/17/25), HLD, and HTN who presented on 10/02/25 with left foot cellulitis and osteomyelitis of the distal 5th metatarsal + purulent drainage. Patient was recently s/p I&D on 09/17 and s/p repeat I&D + excisional debridement on 09/19. He had apparently left AMA and presented to for planned amputation but also left AMA and requested [facility]'s General Surgery (Dr. Tafoya) perform the procedure. PMH: Diabetes mellitus takes metformin 1000 mg daily, glargine 45 units, Humalog 50 units. Hyperlipidemia takes atorvastatin 10 mg, Hypertension takes lisinopril 20 mg. Used to take gabapentin for his peripheral neuropathy but not taking anymore. PSH: Left knee surgery Medications: Pending medication reconciliation Allergies: NKDA FH: History of lung cancer, colon cancer, hypertension, CHF in his maternal side SH: Stopped smoking vape since 2020, consumes alcohol occasionally. In the ED, vitals showed: BP 114/77 HR 108 RR 18 Temp 99.5 SpO2 99% on room air CBC showed WBC 10.8, Hgb 9.0, platelet count 553. Coagulation panel WNL. CMP showed blood glucose 302 but was otherwise WNL. Imaging: None In the ED, patient was given Zofran IV, albumin IV, insulin lispro SC, and gabapentin PO. Patient was immediately taken to the OR by General Surgery (Dr. Tafoya) for left BKA for his left foot cellulitis and osteomyelitis of the distal 5th metatarsal. The Internal Medicine team was consulted for management of patient s/p left BKA due to his many comorbidities including his poorly controlled T2DM. Review of Systems Review of Systems Systems Reviewed: All systems reviewed, normal except as documented Exam Vital Signs Temp Pulse Resp BP Pulse Ox O2 Del Method 99.5 F 108 H 18 114/77 99 Room Air 10/02/25 14:50 10/02/25 14:50 10/02/25 14:50 10/02/25 14:50 10/02/25 14:50 10/02/25 14:50 Narrative Exam Physical Exam could not be performed as patient was in the OR. Will attempt to perform tomorrow. Results: Labs 10/02/25 15:13 10/02/25 15:13 Labs: Short CBC 10/02/25 Range/Units 15:13 WBC 10.8 H (3.8-10.6) Thou/mm3 Hgb 9.0 L (13.5-16.0) g/dL Hct 27.2 L (41.0-53.0) % Plt Count 553 H D (140-440) Thou/mm3 BMP 10/02/25 15:13 Sodium 136 Potassium 3.8 Chloride 102 Carbon Dioxide 27.1 BUN 20 Creatinine 0.9 Glucose 302 H Calcium 8.6 Liver Function 10/02/25 Range/Units 15:13 Total Bilirubin 0.5 (0.3-1.2) mg/dL AST 13 (0-34) U/L ALT 8 L (10-49) U/L Alkaline Phosphatase 97 (46-116) U/L Albumin 4.0 (3.5-5.0) gm/dL Quality Measures Quality Measures none Medications Home Medications and Allergies Home Medications ?Medication ?Instructions ?Recorded ?Confirmed ?Type lisinopril 5 mg tablet 20 mg PO DAILY 09/22/2409/23 History metformin 500 mg tablet 1,000 mg PO BID 09/22/2409/16 History insulin lispro 100 unit/mL 1 sliding scale dose subcut AC 10/02/25 10/02/25 History subcutaneous pen Allergies Allergy/AdvReac Type Severity Reaction Status Date / Time No Known Allergies Allergy Verified 10/02/25 14:30 Visit Medications Sodium Chloride (Ns) 1,000 mls @ 100 mls/hr IV .Q10H RONALD Stop: 11/01/25 16:19 Ondansetron HCl (Ondansetron Inj 2 Mg/Ml Inj 2 Ml) 4 mg IVP Q6H PRN; Protocol PRN Reason: NAUSEA OR VOMITING Stop: 11/01/25 16:31 Assessment & Plan Plan Patient is a 40-year-old M with a PMH of poorly controlled T2DM (last HgbA1c >14.0 on 09/17/25), HLD, and HTN who presented on 10/02/25 with left foot cellulitis and osteomyelitis of the distal 5th metatarsal + purulent drainage. Patient was immediately taken to the OR by General Surgery (Dr. Tafoya) for left BKA for his left foot cellulitis and osteomyelitis of the distal 5th metatarsal. The Internal Medicine team was consulted for management of patient s/p left BKA due to his many comorbidities including his poorly controlled T2DM. #Left foot osteomyelitis of distal 5th metatarsal #Left foot cellulitis #s/p 10/02 left BKA Patient underwent left below knee amputation for his left foot osteomyelitis Rx: -Zosyn 3.375 g IV q6HR [10/03-] -Vancomycin dosed by pharmacy IV qD [10/03--] #T2DM, poorly controlled 10/02 admission blood glucose Last HgbA1c from 09/17/25 was >14.0 On home metformin 1000 mg PO BID Dx: -10/02 HgbA1c ordered, showed ___ Rx: -Insulin sliding scale -Blood glucose checks ACHS Hospital Management: Disposition: s/p BKA by General Surgery, admitted to Med Surg for medical management Diet: NPO GI Prophylaxis: Not Indicated Bowel Prophylaxis: Not Indicated DVT Prophylaxis: Heparin 5U SC q8HR CODE STATUS: Full Code I have examined the patient and conferred with my attending, Dr. Duran, and my senior resident, Dr. Street, regarding them. Malcolm Banks, DO PGY-1 Internal Medicine
--- NOTE | 2025-10-02 19:41 | SUR.PHASEI ---
pt arrived to PACU via gurney with oral airway present, breathing unlabored, dressing to left lower extremity clean, dry, and intact, report from Roxanne JUNIOR and Bethanie ESPOSITO
--- NOTE | 2025-10-02 19:49 | ESOP_ITS ---
Date of Procedure 10/02/25 Pre Op Diagnosis Left foot osteomyelitis Post Op Diagnosis Same Procedure Left below knee amputation Findings Left foot osteomyelitis Procedure Description After discussion of risks and benefits, patient was brought to the operating room and general anesthesia was induced. He received preoperative antibiotics and was prepped and draped in the usual sterile fashion. First the tibial tubercle was marked and then the anterior incision was planned 10 cm distal to this. The anterior incision was planned to be two thirds of the total circumference of the incision. The posterior flap was then marked out so that it would be 1.5 times the length of the anterior flap and will comprise the remaining one third of the total circumference. Both the anterior and posterior skin flaps were marked out with rounded edges to reduce redundancy upon skin closure. The entire circumference was incised with a #10 blade. During this process, points of bleeding were controlled with vascular clips and electrocautery. The superficial and deep peroneal nerves were identified. Gentle traction was placed on the nerves and they were resected using sharp dissection. The anterior compartment musculature was divided with electrocautery and the anterior tibial artery was identified, isolated and ligated. The deep musculature was also divided. The periosteal flap was elevated using a single blade wide chisel. The tibia was isolated and the [employer] [place] retractor was inserted deep to the tibia. It was transected with a saw approximately 1 cm superior to the skin flap. The interosseous membrane was divided and the fibula was then identified. The periosteum of the fibula was elevated and again an [employer] was inserted deep to the fibula. The fibula was transected approximately 1 cm proximal to the cut edge of the tibia. An [employer] was used to elevate the distal tibia and fibula and to serve as a guide for transecting the posterior musculature. Using a #20 blade, the posterior musculature was divided until the specimen was fully removed and sent off for pathology. Points of bleeding were controlled with clipping and 0 silk ties. The posterior flap was noted to be a bit bulky so it was debulked with electrocautery. The wound was thoroughly irrigated with Betadine, saline and hydrogen peroxide. There were some points of bleeding on the tibia which were controlled with bone wax. Otherwise hemostasis was achieved with electrocautery. Counts were confirmed correct. The posterior flap was then folded over and sutured to the anterior flap in 2 layers, with buried interrupted 0 Vicryl sutures followed by buried interrupted 2-0 Vicryl sutures. The skin was then reinforced with sheldon and covered with Adaptic, fluffs, Kerlix and an Zackery wrap. Patient was extubated and brought to PACU in stable condition Pathology / specimen Other (Left below knee amputation) Estimated Blood Loss 400 Surgeon Faby Tafoya MD Surgical Staff Operation Date: 10/02/25 20:15 Case Staff FIELD GEOLOGIST: Bethanie Lin RN First Assistant: Carmen Quick
[2025-10-02] MEDS: ONDANSETRON INJ 2 MG/ML INJ 2 ML 4 MG IVP (20:07)
[2025-10-02] MEDS: ALBUMIN HUMAN 25% IVPB 12.5 GM/50 ML BTL IV (20:30)
--- NOTE | 2025-10-02 20:40 | SUR.PHASEI ---
pt awake, alert, able to follow commands, breathing unlabored, dressing to left lower extremity clean, dry, and intact, pt able to tolerate oral fluids without difficulty swallowing or n/v, report called to Gale JUNIOR, pt transferred to room at this time.
[2025-10-02] MEDS: GABAPENTIN 300 MG CAPSULE PO (21:35)
[2025-10-02] MEDS: INSULIN LISPRO (AdmeLOG) 1 UNIT/0.01 ML UNIT SC (21:42)
[2025-10-02] MEDS: ACETAMINOPHEN 325 MG TABLET 650 MG PO (22:38)
[2025-10-03] VITALS (7 sets, daily range): BP systolic 109–120; BP diastolic 70–83; PULSE 82–104; RESP 17–97; TEMP 36.3–36.8; O2SAT 96–99; BMI 28.5
[2025-10-03] MEDS: PIPER/TAZO 3.375 GM PREMIX 3.375 GM/50 ML BAG IV ×2 (01:09→06:17)
[2025-10-03] MEDS: VANCOMYCIN/NS 1 GM IVPB 200 ML IV ×2 (01:36→03:58)
[2025-10-03] MEDS: MELATONIN 3 MG TABLET 6 MG PO (02:32)
[2025-10-03] MEDS: MORPHINE SULF INJ 4 MG/ML VIAL IVP ×2 (02:32→19:21)
[2025-10-03] MEDS: ONDANSETRON INJ 2 MG/ML INJ 2 ML 4 MG IVP (02:35)
[2025-10-03 05:52] LABS: Glucose Estimated Average 280 mg/dL (80-131); Hemoglobin A1C 11.4 % Hgb (4.8-6.0)
[2025-10-03 06:02] LABS: Cardiac Risk Estimate 2.6 RATIO (4.0-6.7); Cholesterol 98 mg/dL (132-200); HDL Cholesterol 38 mg/dL (40-60); LDL Cholesterol,Calculated 52 mg/dL (0-130); Triglycerides 41 mg/dL (30-150)
[2025-10-03] MEDS: INSULIN LISPRO (AdmeLOG) 1 UNIT/0.01 ML UNIT SC ×4 (07:35→20:24)
[2025-10-03] MEDS: INSULIN DEGLUDEC 5 UNIT/0.05 ML (PER 5 UNITS) 12 UNIT SC (08:11)
--- NOTE | 2025-10-03 08:55 | XR_ITS ---
EXAMINATION: AP chest single view TECHNIQUE: Portable sitting AP chest single view Date and time: October 03, 2025, 0908 hours INDICATIONS: Choking episode this morning FINDINGS: No aspiration pneumonia Reduced inspiratory effort Normal heart size No pulmonary edema Osseous structures are intact IMPRESSION: No aspiration pneumonia
--- NOTE | 2025-10-03 09:01 | PC.NURSE ---
Rapid Response called after patient was found choking on breakfast. Patient was able to clear obstruction on his own and PIE FILLING MIXER was canceled MD Cohen made aware and STAT chest X-ray ordered and patient was made NPO.
--- NOTE | 2025-10-03 09:30 | PC.NURSE ---
MD made aware of CXR results, orders to resume diet.
[2025-10-03] MEDS: cefTRIAXone/D5w 1gm IV premix 1 GM/50 ML BAG IV (11:26)
--- NOTE | 2025-10-03 12:43 | PD.SURPROG ---
Documentation for date of: 10/03/25 Subjective Subjective Brief History: 40M with HTN, HLD, DMII (A1c >14) presenting with left foot cellulitis, osteomyelitis of the distal 5th metatarsal as well as purulent drainage, s/p I&D 09/17, with persistent fever and swelling s/p repeat I&D with excisional debridement 09/19. Pt left here AMA and presented to , was planned for amputation there but also left AMA and requested that I personally perform surgery. He continues to have fever but otherwise no complaints Narrative: Pain controlled, finger sticks >300, remaining afebrile with stable hgb Exam Vital Signs Temp Pulse Resp BP Pulse Ox O2 Del Method O2 Flow Rate 97.3 F 85 18 119/83 97 Room Air 3 10/03/25 08:00 10/03/25 08:00 10/03/25 08:00 10/03/25 08:00 10/03/25 08:00 10/03/25 08:00 10/03/25 08:00 Constitutional Constitutional: no acute distress Routine Respiratory Exam Respiratory: Present no resp distress Routine Extremities Exam Comments: LLE dressing c/d/i Results Results: Laboratory Laboratory results: results reviewed Assessment & Plan Plan 40M with HTN, HLD, DMII (A1c >14) presenting with left foot cellulitis, osteomyelitis of the distal 5th metatarsal as well as purulent drainage, s/p I&D 09/17, with persistent fever and swelling s/p repeat I&D with excisional debridement 09/19 now s/p L BKA 10/02, gradually recovering Will plan on dressing change POD 3 PROCEDURES: Procedures Left below knee amputation
--- NOTE | 2025-10-03 12:53 | PC.DIETICIAN ---
Dietitian consult: RD will provide Cont[employer] Next Ez glucometer, he tried CGM and dislikes it. Pt also requesting social service liaison to discuss insurance options related to his diabetes medications. Will also consider pharmacist referral to assist with insurance coverage questions. Thank you
--- NOTE | 2025-10-03 14:35 | PC.NURSE ---
Patient moved to room 356 for patient safety, after patient was found laying flat while eating. Education provided again of the risk of aspiration if eating while laying flat. Patient verbalized understanding.
--- NOTE | 2025-10-03 16:08 | PC.PT ---
Attempted PT eval but pt was having sharp pain in the L LE that prevented any movement. Will attempt eval at a different time.
--- NOTE | 2025-10-03 16:32 | PD.RESPRO ---
Documentation for date of: 10/03/25 Subjective Subjective Interval history: Patient is seen and examined at bedside. No acute overnight events. Underwent surgery successfully. Started on diet and tolerating well. Patient noted to have uncontrolled diabetes mellitus but still is not compliant with dietary limitation. Dietitian was consulted and she talked with the patient 3 times by now and patient wanted some snacks which was ordered Insulin degludec 12 units is given in the morning and started on 20 units subcutaneous at bedtime degludec. Will continue to monitor blood sugars and adjust the insulin accordingly Exam Vital Signs Temp Pulse Resp BP Pulse Ox O2 Del Method O2 Flow Rate 98.1 F 82 18 114/70 99 Room Air 3 10/03/25 12:00 10/03/25 12:00 10/03/25 12:00 10/03/25 12:00 10/03/25 12:00 10/03/25 12:00 10/03/25 12:00 Narrative Exam General: Awake. HEENT: Normocephalic, atraumatic, mucous membranes moist. Heart: Regular rate and rhythm, no murmurs. Lungs: Clear to auscultation with no wheezing or crackles. Abdomen: Soft, nondistended, nontender, positive bowel sounds. ?No guarding or rebound tenderness. Neurologic: Alert and oriented x3, no gross neurological deficit, and patient able to move all 4 extremities. Extremities: No edema. s/p left BKA, site is dressed and no soaking noted. Skin: No rash or ecchymoses. Objective Labs 10/04/25 04:15 10/04/25 04:15 Labs: Laboratory Results - last 24 hr 10/02/25 10/03/25 16:08 04:[address] Glu mg/dL 280 H Hemoglobin A1c 11.4 H Triglycerides 41 Cholesterol 98 L LDL Cholesterol, Calc 52 HDL Cholesterol 38 L Cholesterol/HDL Ratio 2.6 L Blood Type A Positive Antibody Screen NEGATIVE Blood Bank Wristband ID Yes Quality Measures Quality Measures none Assessment & Plan Assessment Current Active Medications: Generic Name Dose Route Start Last Admin Trade Name Freq PRN Reason Stop Dose Admin Acetaminophen 650 mg 10/02/25 20:49 10/02/25 22:38 Acetaminophen 325 Mg Tablet PO 11/01/25 20:48 650 mg Q6H PRN Administration PAIN SCALE 1-3 (mild Hydrocodone Bitart/Acetaminophen 1 tab 10/02/25 20:49 Hydrocodone/Apap 5/325 Tablet PO 10/07/25 20:48 Q4H PRN PAIN SCALE 4-10(Mod-Sev Dextrose 25 ml 10/02/25 18:55 Dextrose 50%-Water Inj 50 Ml Syringe IV 11/01/25 18:54 Q15MIN PRN BG 50-70 responsive npo pt Dextrose 50 ml 10/02/25 18:55 Dextrose 50%-Water Inj 50 Ml Syringe IV 11/01/25 18:54 Q15MIN PRN BG <50 OR BG <70 & pt unresponsive Glucagon 1 mg 10/02/25 18:55 Glucagon Inj 1 Mg Vial IM Q15MIN PRN BG <70, and no IV access Ceftriaxone Sodium/Dextrose 1 gm in 50 mls @ 100 mls/hr 10/03/25 10:43 10/03/25 11:26 Rocephin/D5w 1gm Iv Premix IV 10/10/25 10:42 100 mls/hr QDAY RONALD Administration Insulin Human Lispro 0 unit 10/02/25 21:15 10/03/25 11:25 Insulin Lispro (Admelog) 1 Unit/0.01 Ml Unit SC 11/01/25 21:14 5 unit ACHS RONALD Administration Protocol Melatonin 6 mg 10/02/25 17:22 10/03/25 02:32 Melatonin 3 Mg Tablet PO 11/01/25 20:59 6 mg HS PRN Administration Insomnia Morphine Sulfate 4 mg 10/02/25 20:49 10/03/25 02:32 Morphine Sulf Inj 4 Mg/Ml Vial IVP 10/07/25 20:48 4 mg Q4HR PRN Administration Breakthrough Pain Protocol Ondansetron HCl 4 mg 10/02/25 16:32 10/03/25 02:35 Ondansetron Inj 2 Mg/Ml Inj 2 Ml IVP 11/01/25 16:31 4 mg Q6H PRN Administration NAUSEA OR VOMITING Protocol Plan Patient is a 40-year-old M with a PMH of poorly controlled T2DM (last HgbA1c >14.0 on 09/17/25), HLD, and HTN who presented on 10/02/25 with left foot cellulitis and osteomyelitis of the distal 5th metatarsal + purulent drainage. Patient was immediately taken to the OR by General Surgery (Dr. Tafoya) for left BKA for his left foot cellulitis and osteomyelitis of the distal 5th metatarsal. The Internal Medicine team was consulted for management of patient s/p left BKA due to his many comorbidities including his poorly controlled T2DM. #Left foot osteomyelitis of distal 5th metatarsal #Left foot cellulitis #s/p left BKA, 10/02 Patient underwent left below knee amputation for his left foot osteomyelitis Rx: -Stopped Zosyn and Vancomycin, changed to Ceftriaxone(10/03- -Physical therapy is ordered -Referral to wound care is done #T2DM, poorly controlled 10/02 admission blood glucose Last HgbA1c from 09/17/25 was >14.0 On home metformin 1000 mg PO BID Dx: -10/02 HgbA1c ordered, showed 11.4 Rx: -Insulin sliding scale -Blood glucose checks ACHS -Insulin Degludec 20units SC HS -Dietitian is consulted Hospital Management: Disposition: s/p BKA by General Surgery, admitted to Med Surg for medical management Diet: Carb consistent GI Prophylaxis: Not Indicated Bowel Prophylaxis: Not Indicated DVT Prophylaxis: Heparin 5U SC q8HR CODE STATUS: Full Code Patient plan of care was discussed with the attending physician, Dr. Yazmin Cohen, PGY2 Attending Provider Attestation/Addendum I have examined the patient, reviewed labs and imaging findings, discussed the case with the resident(s), and reviewed entered orders. I agree with the plan of care as outlined in this note, with these additional summaries/recommendations: Patient seen at bedside. No acute overnight events. Patient is postoperative day #1 status post left below knee amputation. He reports his pain is controlled with current regimen. We will de-escalate IV antibiotics today. Continue wound care and multivitamins. We will arrange stump protector. Patient has uncontrolled diabetes mellitus type 2 with hyperglycemia and medication noncompliance. Fasting blood sugars into the 300s this morning. We will continue to adjust basal and bolus insulin and increase dosages until blood sugar at target of 140-180 while hospitalized. Patient counseled on medication compliance. We will resume home aspirin and statin tomorrow. Patient updated on the plan and agreement. All questions answered to satisfaction. Please see residents note for additional details and management. Dr. Yazmin MD
--- NOTE | 2025-10-03 18:00 | PC.NURSE ---
Patient sat up at side of bed urinated 2000ml in urinal.
[2025-10-03] MEDS: HYDROcodone/APAP 5/325 TABLET 1 TAB PO (18:24)
--- NOTE | 2025-10-03 19:11 | PC.NURSE ---
Repositioned patient to his right side as patient was having a chief complaint of pain from his procedure. Family is at bedside and nurse notified patient's family member that there could only be two people in the room during visiting hours.
--- NOTE | 2025-10-03 19:14 | PC.NURSE ---
Patient family member came out of room and notified nurse that he is still in pain and patient was recently given narco at 1824.
--- NOTE | 2025-10-03 19:45 | PC.NURSE ---
Due to patient being in tremendous pain, hospitalist Dr. Orr was contacted and notified regarding patient's pain level of 10. MD was notified that patient received narco at 1845 and does have a PRN order of morphine 4mg. Per MD, go ahead a administer the patient's prn order of morphine. Patient then requested ice water and saltine crackers. Patient was given ice water and saltine crackers as requested. Patient was educated once again on the importance of note eating on his side and not eating while lying down as it would put him at risk for chocking. Patient voiced understanding and family members are at bedside.
[2025-10-03] MEDS: INSULIN DEGLUDEC 5 UNIT/0.05 ML (PER 5 UNITS) 20 UNIT SC (20:24)
[2025-10-04] VITALS (18 sets, daily range): BP systolic 105–131; BP diastolic 65–87; PULSE 81–96; RESP 16–99; TEMP 36.3–37; O2SAT 95–100
[2025-10-04] MEDS: MORPHINE SULF INJ 4 MG/ML VIAL IVP ×5 (00:12→23:09)
--- NOTE | 2025-10-04 00:15 | PC.NURSE ---
patient was offered narco for pain. per patient does not want narco and just wants morphine.
--- NOTE | 2025-10-04 04:02 | PC.NURSE ---
Patient requested snacks. Patient was given saltine crackers and chocolate pudding with zero sugar 7 up
[2025-10-04 05:38] LABS: Basophils # (Auto) 0.0 Thou/mm3 (0.0-0.2); Basophils % (Auto) 1 % (0-2.5); Eosinophils # (Auto) 0.1 Thou/mm3 (0.0-0.5); Eosinophils % (Auto) 1 % (0-10); Hematocrit 21.2 % (41.0-53.0); Immature Granulocytes Auto 0.02 Thou/mm3 (0.00-0.00); Lymphocytes # (Auto) 2.6 Thou/mm3 (1.0-4.8); Lymphocytes % (Auto) 31 % (10-50); Mean Corpuscular HGB Conc 32.1 g/dl (31.0-37.0); Mean Corpuscular Hemoglobin 28.5 pg (25.0-35.0); Mean Corpuscular Volume 89 fL (80-100); Monocytes # (Auto) 0.6 Thou/mm3 (0.0-0.8); Monocytes % (Auto) 7 % (0-12); Neutrophils # (Auto) 5.1 Thou/mm3 (1.8-7.7); Neutrophils % (Auto) 60 % (37-80); Nucleated Red Blood Cell # 0.00 Thou/mm3 (0.00-0.00); Nucleated Red Blood Cell % 0 /100 WBC (0); Platelet Count 365 Thou/mm3 (140-440); RDW Standard Deviation 44.7 fL (35.1-43.9); Red Blood Count 2.39 Miln/mm3 (4.50-5.90); White Blood Count 8.5 Thou/mm3 (3.8-10.6)
[2025-10-04 06:12] LABS: Hemoglobin 6.8 g/dL (13.5-16.0)
[2025-10-04 06:19] LABS: Alanine Aminotransferase < 7 U/L (10-49); Albumin, Serum 3.3 gm/dL (3.5-5.0); Albumin/Globulin Ratio 1.1 (1.2-2.2); Alkaline Phosphatase 79 U/L (46-116); Anion Gap 8 (7-16); Aspartate Amino Transferase 11 U/L (0-34); BUN/Creatinine Ratio 21 Ratio (12-20); Bilirubin,Total 0.2 mg/dL (0.3-1.2); Blood Urea Nitrogen 15 mg/dL (9-23); Calcium 7.9 mg/dL (8.3-10.6); Calcium (Corrected) 8.5 mg/dL (8.5-10.1); Carbon Dioxide 28.8 mMol/L (20.0-31.0); Chloride 104 mMol/L (98-107); Creatinine (Component) 0.7 mg/dL (0.6-1.3); Estimated Creatinine Clearance 179.6 mL/min (>60); Globulin 3.0 gm/dL (2.3-3.5); Glucose 231 mg/dL (74-106); Osmolality,Calculated 289 (275-295); Potassium 3.6 mMol/L (3.4-5.1); Sodium 141 mMol/L (136-145); Total Protein 6.3 gm/dL (5.7-8.2); eGFR > 60 See Note
[2025-10-04] MEDS: INSULIN LISPRO (AdmeLOG) 1 UNIT/0.01 ML UNIT SC ×4 (07:29→20:39)
[2025-10-04 08:03] LABS: Hematocrit 19.8 % (41.0-53.0); Hemoglobin 6.4 g/dL (13.5-16.0)
[2025-10-04] MEDS: POTASSIUM CHLORIDE 10% 20 MEQ/15 ML UDC 40 MEQ PO (08:42)
[2025-10-04] MEDS: cefTRIAXone/D5w 1gm IV premix 1 GM/50 ML BAG IV (08:42)
--- NOTE | 2025-10-04 09:24 | ESPR_ITS ---
<Statement entered by Arlene Srteet MD - 10/05/25 07:39> Patient was seen and examined by me personally. I have directly supervised and reviewed documentation by the team resident and agree with its findings with any exceptions or additional findings as below. Plan of care was discussed with the attending, Dr. Arce. Arlene Street, PGY-3 Documentation for date of: 10/04/25 Subjective Subjective Interval history: Overnight, patient's Hgb was found to be 6.8 at 0415 today and later down- trended to 6.4 at 0655. Patient was examined at bedside; they appear A&Ox3 and in NAD. Today, he complains of left leg pain and requests Dilaudid or morphine. Vitals/labs today significant for Hgb 9.0->6.9->6.4, potassium 3.6, creatinine 0.9->0.7, blood glucose 302->231. Physical exam notable for general pallor, dark hyperpigmented, keratinized patch on metatarsal plantar surface of right foot, and [id number] of left leg that is freshly-dressed with wrappings and without evidence of bleeding (s/p 10/02 left BKA, post-op day 2). Patient received pRBC transfusion x 2 due to his low hemoglobin; we will follow up on his post-transfusion H&H. Otherwise, patient will be continued on Rocephin IV and have his blood glucose levels managed via insulin sliding scale and adjustments to his insulin regimen as needed (increased basal Insulin Degludec from 20 to 26). Exam Vital Signs Temp Pulse Resp BP Pulse Ox O2 Del Method O2 Flow Rate 97.7 F 92 20 122/81 98 Room Air 3 10/04/25 08:00 10/04/25 09:05 10/04/25 09:05 10/04/25 08:00 10/04/25 08:00 10/04/25 04:00 10/03/25 16:00 Narrative Exam General: Pale. Awake. HEENT: Normocephalic, atraumatic, mucous membranes moist. Heart: Slightly tachycardic rate and normal rhythm, no murmurs. Lungs: Clear to auscultation with no wheezing or crackles. Abdomen: Soft, nondistended, nontender, positive bowel sounds. No guarding or rebound tenderness. Neurologic: Alert and oriented x3, no gross neurological deficit, and patient able to move all 4 extremities. Extremities: s/p left BKA, site is dressed and no soaking noted. Dark, hyperpigmented, keratinized patch on metatarsal plantar surface of right foot. No edema. Skin: No rash or ecchymoses. Objective Labs 10/05/25 04:39 10/05/25 04:39 Labs: Laboratory Results - last 24 hr 10/04/25 10/04/25 04:15 06:55 WBC 8.5 RBC 2.39 L Hgb 6.8 L* D 6.4 L* Hct 21.2 L* 19.8 L* MCV 89 MCH 28.5 MCHC 32.1 RDW Std Deviation 44.7 H Plt Count 365 D Neut % (Auto) 60 Lymph % (Auto) 31 [place] % (Auto) 7 Eos % (Auto) 1 Baso % (Auto) 1 Neut # (Auto) 5.1 Lymph # (Auto) 2.6 [place] # (Auto) 0.6 Eos # (Auto) 0.1 Baso # (Auto) 0.0 Immature Gran # (Auto) 0.02 H Absolute Nucleated RBC 0.00 Immature Gran % 0 Nucleated RBC % 0 Sodium 141 Potassium 3.6 Chloride 104 Carbon Dioxide 28.8 Anion Gap 8 BUN 15 Creatinine 0.7 Estim Creat Clear Calc 179.6 eGFR > 60 BUN/Creatinine Ratio 21 H Glucose 231 H D Calculated Osmolality 289 Calcium 7.9 L Corrected Calcium 8.5 Total Bilirubin 0.2 L AST 11 ALT < 7 L Alkaline Phosphatase 79 Total Protein 6.3 Albumin 3.3 L D Globulin 3.0 Albumin/Globulin Ratio 1.1 L Quality Measures Quality Measures none Assessment & Plan Assessment Current Active Medications: Generic Name Dose Route Start Last Admin Trade Name Freq PRN Reason Stop Dose Admin Acetaminophen 650 mg 10/02/25 20:49 10/02/25 22:38 Acetaminophen 325 Mg Tablet PO 11/01/25 20:48 650 mg Q6H PRN Administration PAIN SCALE 1-3 (mild Hydrocodone Bitart/Acetaminophen 1 tab 10/02/25 20:49 10/03/25 18:24 Hydrocodone/Apap 5/325 Tablet PO 10/07/25 20:48 1 tab Q4H PRN Administration PAIN SCALE 4-10(Mod-Sev Dextrose 25 ml 10/02/25 18:55 Dextrose 50%-Water Inj 50 Ml Syringe IV 11/01/25 18:54 Q15MIN PRN BG 50-70 responsive npo pt Dextrose 50 ml 10/02/25 18:55 Dextrose 50%-Water Inj 50 Ml Syringe IV 11/01/25 18:54 Q15MIN PRN BG <50 OR BG <70 & pt unresponsive Glucagon 1 mg 10/02/25 18:55 Glucagon Inj 1 Mg Vial IM Q15MIN PRN BG <70, and no IV access Ceftriaxone Sodium/Dextrose 1 gm in 50 mls @ 100 mls/hr 10/03/25 10:43 10/04/25 08:42 Rocephin/D5w 1gm Iv Premix IV 10/10/25 10:42 100 mls/hr QDAY RONALD Administration Insulin Degludec 26 unit 10/04/25 21:00 Insulin Degludec 5 Unit/0.05 Ml (Per 5 Units) SC 11/03/25 20:59 HS RONALD Insulin Human Lispro 0 unit 10/02/25 21:15 10/04/25 07:29 Insulin Lispro (Admelog) 1 Unit/0.01 Ml Unit SC 11/01/25 21:14 3 unit ACHS RONALD Administration Protocol Melatonin 6 mg 10/02/25 17:22 10/03/25 02:32 Melatonin 3 Mg Tablet PO 11/01/25 20:59 6 mg HS PRN Administration Insomnia Morphine Sulfate 4 mg 10/02/25 20:49 10/04/25 06:26 Morphine Sulf Inj 4 Mg/Ml Vial IVP 10/07/25 20:48 4 mg Q4HR PRN Administration Breakthrough Pain Protocol Ondansetron HCl 4 mg 10/02/25 16:32 10/03/25 02:35 Ondansetron Inj 2 Mg/Ml Inj 2 Ml IVP 11/01/25 16:31 4 mg Q6H PRN Administration NAUSEA OR VOMITING Protocol Plan Patient is a 40-year-old M with a PMH of poorly controlled T2DM (last HgbA1c >14.0 on 09/17/25), HLD, and HTN who presented on 10/02/25 with left foot cellulitis and osteomyelitis of the distal 5th metatarsal + purulent drainage. Patient was immediately taken to the OR by General Surgery (Dr. Tafoya) for left BKA for his left foot cellulitis and osteomyelitis of the distal 5th metatarsal. The Internal Medicine team was consulted for management of patient s/p left BKA due to his many co-morbidities including his poorly controlled T2DM. #Left foot osteomyelitis of distal 5th metatarsal #Left foot cellulitis #s/p left BKA, 10/02 Patient underwent left below knee amputation for his left foot osteomyelitis Rx: -Ceftriaxone 1g IV qD [10/03--] -Physical therapy is ordered -Referral to wound care is done -Pain control as appropriate #T2DM, poorly controlled 10/02 admission blood glucose Last HgbA1c from 09/17/25 was >14.0 On home metformin 1000 mg PO BID Dx: -10/02 HgbA1c ordered, showed 11.4 Rx: -Insulin sliding scale -Blood glucose checks ACHS -Insulin Degludec 26 units SC HS -Dietitian is consulted #Normocytic anemia #C/f acute blood loss anemia 10/02 Hgb 9.0 -> 10/04 Hgb 6.8->6.4 (MCV 89, RDW 44.7) Per General Surgery operative report, patient only lost 400 cc of blood throughout the [id number]-mozr-hthxxywavz of the left leg On 10/04 exam, no evidence of active bleeding noted Type and screen completed Rx: -pRBC transfusion x 2, will follow-up on post-transfusion H&H Hospital Management: Disposition: s/p BKA by General Surgery, admitted to Med Surg for medical management Diet: Carb Consistent GI Prophylaxis: Not Indicated Bowel Prophylaxis: Not Indicated DVT Prophylaxis: Heparin 5U SC q8HR CODE STATUS: Full Code Patient plan of care was discussed with the attending physician, Dr. Yazmin Banks, DO PGY-1 Attending Provider Attestation/Addendum I have examined the patient, reviewed labs and imaging findings, discussed the case with the resident(s), and reviewed entered orders. I agree with the plan of care as outlined in this note, with these additional summaries/recommendations: Patient seen at bedside. No acute overnight events. Patient endorsing pain and we will adjust pain regimen. Morning labs showed hemoglobin of 6.8 and repeat 6.4. Order 1 unit PRBCs and follow-up posttransfusion H&H. Hold all chemical anticoagulation. Patient is postoperative day #2 status post left below knee amputation. He reports his pain is moderate to severe but is controlled with current regimen. Continue IV antibiotic. Continue wound care and multivitamins. Stump protector pending. Patient has uncontrolled diabetes mellitus type 2 with hyperglycemia and medication noncompliance. Blood sugars improving and we will continue to increase dosages until blood sugar at target of 140-180 while hospitalized. Patient counseled on medication compliance. We will resume home aspirin and statin tomorrow. Patient updated on the plan and agreement. All questions answered to satisfaction. Please see residents note for additional details and management. Dr. Yazmin MD
[2025-10-04] MEDS: HYDROcodone/APAP 5/325 TABLET 1 TAB PO ×2 (09:39→21:06)
[2025-10-04] MEDS: HYDROmorphone INJ 2 MG/ML VIAL 0.5 MG IVP (10:15)
--- NOTE | 2025-10-04 10:24 | PC.PT ---
PT eval witheld today. Patient is pending Blood transfusion due to low H&H level as per RN. Will attempt again tomorrow.
--- NOTE | 2025-10-04 11:26 | PC.SS ---
Rounding: BKA completed, blood transfusion pending. DC plan home.
--- NOTE | 2025-10-04 11:43 | PC.SS ---
[place] Munguia is a 40-old male admitted to [place] for BKA. SS conducted bedside contact with the patient to complete initial assessment and to discuss discharge planning. Role and reason explained. Patient confirmed demographic information. Patient identifies his Georgie Patel [phone] as his surrogate decision maker. Pt states he is able to complete all ADL?s independently prior to admission, helps assist with needs if needed. Pt does not possesses any DME but is requesting a wheelchair de to new BKA. Pts PCP is Damon Ortega. Pharmacy of choice is [facility]. Discharge options discussed and the pt wishes to return home.? Pt will provide transport. No further intervention required at this time, social services aide would be available to address any further concerns. DC Plan: Home Contact: Georgie Address: Confirmed on face sheet PCP: Jordan
--- NOTE | 2025-10-04 15:48 | EKG_ITS ---
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
--- NOTE | 2025-10-04 15:49 | XR_ITS ---
EXAMINATION: AP chest single view TECHNIQUE: AP portable semiupright chest single view Date and time: October 04, 2025, 1608 hours, comparison October 03, 2025 INDICATIONS: Chest pain FINDINGS: Reduced inspiratory effort Normal heart size Moderate vascular congestion. Mild opacity left base suspicious for early pneumonia Osseous structures intact IMPRESSION: Moderate vascular congestion Suspicious for early left lower lung zone pneumonia
--- NOTE | 2025-10-04 16:06 | PC.CC ---
Addendum entered and electronically signed by Nancy Watts RPh 10/05/25 09:02: Met w/ patient at bedside. Patient denied any insurance questions or problems getting his medications. Original Note: Asked by ROSALIE Yoon, to see patient regarding questions about insurance and not being able to obtain medications. Attempted to see at bedside, however, patient busy with radiology. Will follow-up.
[2025-10-04 16:39] LABS: Troponin I < 0.002 ng/mL (0.0-0.045)
--- NOTE | 2025-10-04 18:08 | EVENTNT_ITS ---
Documentation for date of: 10/04/25 Event Note Event Note: Reason for Rapid: Chest pain during blood transfusion Rapid response was activated for chest pain in a patient who was in the process of receiving blood transfusions. The first unit had completed, and the patient was on the second unit at the time of the episode. Upon arrival, patient was alert and hemodynamically stable. Chest pain was non-reproducible on exam and improved significantly while the rapid team was present. Interventions & Diagnostics: * Stopped to evaluate transfusion status * EKG obtained -> Normal sinus rhythm * Chest X-ray ordered * Troponin ordered -> negative * Reassured and monitored patient at bedside By the end of the rapid response, the patient's chest pain had subsided. No respiratory distress, stable vitals, and no signs of transfusion reaction at that time. Plan: * Continue to monitor closely * Follow up CXR * Resume transfusion per protocol ----- Plan discussed with attending physician Dr. Yazmin Stroud MD PGY-1 Internal Medicine
[2025-10-04] MEDS: INSULIN DEGLUDEC 5 UNIT/0.05 ML (PER 5 UNITS) 26 UNIT SC (20:39)
[2025-10-04 21:12] LABS: Hematocrit 28.0 % (41.0-53.0); Hemoglobin 9.2 g/dL (13.5-16.0)
[2025-10-04 23:09] LABS: Vancomycin,Trough < 3.0 mcg/mL (5.0-10.0)
[2025-10-05] VITALS: BP 135/87; PULSE 95; RESP 17; TEMP 37.1; O2SAT 97
[2025-10-05 04:00] VITALS: BP 122/83; PULSE 93; RESP 18; TEMP 36.7; O2SAT 97
[2025-10-05 06:09] LABS: Basophils # (Auto) 0.1 Thou/mm3 (0.0-0.2); Basophils % (Auto) 1 % (0-2.5); Eosinophils # (Auto) 0.3 Thou/mm3 (0.0-0.5); Eosinophils % (Auto) 3 % (0-10); Hematocrit 26.1 % (41.0-53.0); Hemoglobin 8.4 g/dL (13.5-16.0); Immature Granulocytes Auto 0.02 Thou/mm3 (0.00-0.00); Lymphocytes # (Auto) 2.2 Thou/mm3 (1.0-4.8); Lymphocytes % (Auto) 26 % (10-50); Mean Corpuscular HGB Conc 32.2 g/dl (31.0-37.0); Mean Corpuscular Hemoglobin 28.7 pg (25.0-35.0); Mean Corpuscular Volume 89 fL (80-100); Monocytes # (Auto) 0.7 Thou/mm3 (0.0-0.8); Monocytes % (Auto) 9 % (0-12); Neutrophils # (Auto) 5.1 Thou/mm3 (1.8-7.7); Neutrophils % (Auto) 61 % (37-80); Nucleated Red Blood Cell # 0.00 Thou/mm3 (0.00-0.00); Nucleated Red Blood Cell % 0 /100 WBC (0); Platelet Count 360 Thou/mm3 (140-440); RDW Standard Deviation 45.0 fL (35.1-43.9); Red Blood Count 2.93 Miln/mm3 (4.50-5.90); White Blood Count 8.3 Thou/mm3 (3.8-10.6)
[2025-10-05 06:51] LABS: Alanine Aminotransferase < 7 U/L (10-49); Albumin, Serum 3.3 gm/dL (3.5-5.0); Albumin/Globulin Ratio 1.1 (1.2-2.2); Alkaline Phosphatase 69 U/L (46-116); Anion Gap 8 (7-16); Aspartate Amino Transferase < 10 U/L (0-34); BUN/Creatinine Ratio 25 Ratio (12-20); Bilirubin,Total 0.4 mg/dL (0.3-1.2); Blood Urea Nitrogen 15 mg/dL (9-23); Calcium 8.0 mg/dL (8.3-10.6); Calcium (Corrected) 8.6 mg/dL (8.5-10.1); Carbon Dioxide 30.2 mMol/L (20.0-31.0); Chloride 103 mMol/L (98-107); Creatinine (Component) 0.6 mg/dL (0.6-1.3); Estimated Creatinine Clearance 209.5 mL/min (>60); Globulin 3.0 gm/dL (2.3-3.5); Glucose 258 mg/dL (74-106); Osmolality,Calculated 291 (275-295); Potassium 4.1 mMol/L (3.4-5.1); Sodium 141 mMol/L (136-145); Total Protein 6.3 gm/dL (5.7-8.2); eGFR > 60 See Note
[2025-10-05 07:08] VITALS: PULSE 95; RESP 20; RESP 98
[2025-10-05] MEDS: MORPHINE SULF INJ 4 MG/ML VIAL IVP (07:14)
[2025-10-05 07:31] VITALS: BP 129/83; PULSE 94; RESP 18; TEMP 36.5; O2SAT 96
[2025-10-05] MEDS: INSULIN LISPRO (AdmeLOG) 1 UNIT/0.01 ML UNIT SC ×2 (07:37→11:39)
[2025-10-05] MEDS: cefTRIAXone/D5w 1gm IV premix 1 GM/50 ML BAG IV (08:32)
--- NOTE | 2025-10-05 10:56 | PC.NURSE ---
Patient request additional meal trays, education provided on prescribed diabetic diet. Patient verbalizes understanding.
[2025-10-05 11:49] VITALS: BP 141/93; PULSE 94; RESP 16; TEMP 36.4; O2SAT 98
[2025-10-05] MEDS: HYDROcodone/APAP 5/325 TABLET 1 TAB PO (12:11)
--- NOTE | 2025-10-05 12:15 | PC.NURSE ---
After administration of [place] pain medicine patient stated I didn't really every have pain, I was laying I just wanted it to knock me out. Statement made in front of Dr. Segal, and wound Nurse VERNON Gregory.
--- NOTE | 2025-10-05 12:27 | PC.NURSE ---
Dr. Arce made aware the patient wants to leave MD DYLAN will assess at bedside. SS also made aware.
--- NOTE | 2025-10-05 12:47 | PC.SS ---
DME for 3in1 BSC and wheelchair submitted via [email or web address], pending responses
--- NOTE | 2025-10-05 12:49 | PD.SURPROG ---
Documentation for date of: 10/05/25 Subjective Subjective Brief History: 40M with HTN, HLD, DMII (A1c >14) presenting with left foot cellulitis, osteomyelitis of the distal 5th metatarsal as well as purulent drainage, s/p I&D 09/17, with persistent fever and swelling s/p repeat I&D with excisional debridement 09/19. Pt left here AMA and presented to , was planned for amputation there but also left AMA and requested that I personally perform surgery. He continues to have fever but otherwise no complaints Narrative: Received 2u PRBC yesterday for Hgb 6.4, today now 8.4. Pt states his pain is controlled and he is very eager to go home considering leaving AMA. Remaining afebrile, finger sticks in the 200s last 24h Exam Vital Signs Temp Pulse Resp BP Pulse Ox O2 Del Method O2 Flow Rate 97.6 F 94 16 141/93 H 98 Room Air 3 10/05/25 11:49 10/05/25 11:49 10/05/25 11:49 10/05/25 11:49 10/05/25 11:49 10/05/25 11:49 10/03/25 16:00 Constitutional Constitutional: no acute distress Routine Respiratory Exam Respiratory: Present no resp distress Routine Extremities Exam Comments: LLE BKA incision healing well with sheldon intact, no erythema, no fluctuance or bleeding Results Results: Laboratory Laboratory results: results reviewed Assessment & Plan Plan 40M with HTN, HLD, DMII (A1c >14) presenting with left foot cellulitis, osteomyelitis of the distal 5th metatarsal as well as purulent drainage, s/p I&D 09/17, with persistent fever and swelling s/p repeat I&D with excisional debridement 09/19 now s/p L BKA 10/02, recovering well overall From my standpoint pt may be dc but I encouraged him to wait until DME arrives and hospitalist team provides dc Will follow up on 10/23 for staple removal and wound eval PROCEDURES: Procedures Left below knee amputation
--- NOTE | 2025-10-05 13:46 | PC.SS ---
SS met with pt and his at to update on DME, Jean Marie is currently working on processing order with insurance. SS provided them with [employer] pamphlet with contact information for them to follow up.
--- NOTE | 2025-10-05 13:52 | ESDS_ITS ---
Planned Discharge Date 10/05/25 DS: Providers Provider Date of admission: 10/02/25 16:32 Primary care physician: KEMAL Rodríguez Admitting Provider: Sheldon Duran MD Attending Provider on Admission: Satish Arce MD Consults: 10/02/25 15:08 Consult to General Surgery Stat Comment: Consulting Provider: Faby Tafoya 10/02/25 16:29 Consult to General Surgery Stat Comment: Consulting Provider: Faby Tafoya 10/02/25 23:17 Referral Registered Dietitian Routine Comment: Referral Wound Care Routine Comment: 10/03/25 10:41 Referral Physical Therapy Routine Comment: Physician Instructions: Attending Provider on DC: Satish Arce MD Discharging Provider: Malcolm Banks MD DS: Diagnosis Problem List Completed Was Problem List Reviewed/Reconciled?: Yes Hospital Course Hospital Course Hospital course: Summary: Patient is a 40-year-old M with a PMH of poorly controlled T2DM (last HgbA1c >14.0 on 09/17/25), HLD, and HTN who presented on 10/02/25 with left foot cellulitis and osteomyelitis of the distal 5th metatarsal + purulent drainage. Hospital: During patient's hospital course, patient was immediately taken to the OR by General Surgery (Dr. Tafoya) for left BKA on 10/02 for his left foot cellulitis and osteomyelitis of the distal 5th metatarsal. He was also treated with Rocephin IV during his hospital stay. On 10/04 patient exhibited a marked drop in hemoglobin and was transfused with pRBC x 2 which improved it. By 10/05, patient was deemed clinically stabilized and safe to discharge home. Patient is safe to discharge. Further discharge instructions below. 1) Follow up with Dr. Tafoya on 10/23/25. Call [phone] for appointment. 2) Follow up with [facility] for callous over right foot. [address] [place] [address]. Call [phone] for appointment. 3) Wound care to left amputation site: keep site clean and dry. Apply solar design engineer soak than appliance, keep in place to avoid trauma or incision opening. Change solar design engineer sock at least every 2 days and as needed for soiling, socks can be washed. 4) Obtain blood test (complete blood count - CBC) in 3 days to follow up with your hemoglobin level #Left foot osteomyelitis of distal 5th metatarsal #Left foot cellulitis #s/p left BKA, 10/02 #T2DM, poorly controlled #Normocytic anemia #C/f acute blood loss anemia Status at Discharge Cognitive/Behavioral Status at Discharge: stable Functional Status at Discharge: s/p left BKA, may ambulate with the assistance of crutches Overall Status at Discharge: patient is back to new baseline Patient's care plan was discussed with my attending, Dr. Arce, and senior resident, Dr. Street. Malcolm Banks, DO Internal Medicine, PGY-1 Time Spent with Patient Time attestation: Total time spent providing and/or coordinating discharge services: Time spent: Greater than 30 minutes Exam Vital Signs Temp Pulse Resp BP Pulse Ox O2 Del Method O2 Flow Rate 97.6 F 94 16 141/93 H 98 Room Air 3 10/05/25 11:49 10/05/25 11:49 10/05/25 11:49 10/05/25 11:49 10/05/25 11:49 10/05/25 11:49 10/03/25 16:00 Narrative Exam General: A/O x3, no acute distress. Skin: Warm, dry, intact, no obvious rash. Head: Normocephalic, atraumatic. Eyes: PERRL, EOMI. Anicteric, vision grossly intact. Ears: No ear pain, no ear discharge, Hearing grossly intact. Nose: No nasal discharge. Mouth/Throat: Oral mucosa moist. No obvious lesions in oropharynx. Neck: Neck supple, non-tender, no cervical lymphadenopathy. Cardiovascular: Regular rate and rhythm, no murmur, no JVD or carotid bruits. +S1/S2. Respiratory: Bilateral lungs are clear to auscultation, respirations unlabored, no crackles, no wheezing. No accessory muscle use. Gastrointestinal: Soft, nontender, non-distended, no palpable masses. No guarding or rebound tenderness. Peristalsis present. Extremities: Symmetrical, no significant deformities. No edema, no cyanosis, no clubbing. 2+ radial pulse bilaterally, 2+ posterior tibial pulse bilaterally. Neuro: No focal deficits observed. Conversant, moving all extremities. No overt cerebellar signs/incoordination. Psychiatric: Cooperative, appropriate affect. Discharge Plan Plan Patient Disposition: Home w/HOME HEALTH Patient condition on transfer: Stable Care Plan Goals: 1) Follow up with Dr. Tafoya on 10/23/25. Call [phone] for appointment. 2) Follow up with [facility] for callous over right foot. [address] [facility]. Call [phone] for appointment. 3) Wound care to left amputation site: keep site clean and dry. Apply solar design engineer soak than appliance, keep in place to avoid trauma or incision opening. Change solar design engineer sock at least every 2 days and as needed for soiling, socks can be washed. 4) Obtain blood test (complete blood count - CBC) in 3 days to follow up with your hemoglobin level 5) Take Charlotte (hydrocodone-acetaminophen) 5-325 mg as needed up to every 8 hours for severe pain 6) Follow up with Physical Therapy or obtain referral from PCP Prescriptions/Referrals Prescriptions/Med Rec: New hydrocodone-acetaminophen 5-325 mg tablet 1 tab PO Q8H MDD 15 mg-975 mg PRN (Reason: pain (scale score 7-10)) 7 Days Qty: 20 0RF Continued metformin 500 mg tablet 1,000 mg PO BID Patient Comments: TAKE ONE TABLET BY MOUTH THREE TIMES DAILY WITH MEALS lisinopril 5 mg tablet 20 mg PO DAILY Patient Comments: TAKE ONE TABLET BY MOUTH DAILY (DME) FreeStyle Courtney 2 [place] Misc See Rx Instructions .Route Qty: 1 0RF Rx Instructions: As directed (DME) FreeStyle Courtney 2 Sensor Kit See Rx Instructions .Route Qty: 1 0RF Rx Instructions: As directed insulin glargine [Lantus U-100 Insulin] 100 unit/mL Solution 65 unit SCi QDAY Qty: 10 4RF aspirin 81 mg Tablet,Delayed Release (Dr/Ec) 81 mg PO QDAY 30 Days Qty: 30 0RF atorvastatin [Lipitor] 40 mg tablet 40 mg PO HS 30 Days Qty: 30 0RF insulin lispro 100 unit/mL insulin pen 1 sliding scale dose SUBCUT AC Patient Comments: INJECT FIVE UNITS SUBCUTANEOUSLY THREE TIMES DAILY WITH meals FOR DIABETES Referrals: Damon Ortega FNP [Primary Care Provider] Faby Tafoya MD [Physician, General Surgery] Lexi Etienne MD [Physician, Wound Care] - 10/12/25 Referral Note: Wound Care follow up left BKA Outpatient Orders (i.e. Home Health, Labs, Imaging): Physical Therapy (Routine) Location: None Selected Ordered By: Arlene Street Engineering Technologist (Routine) Location: None Selected Ordered By: Arlene Street Patient/Caregiver Discharge Instructions Discharge Activity: as per physical therapy Education Materials: Nutrition for Wound Healing, Healthy Meals for Diabetes, Diabetes: Caring for Your Body, Incision Care Dc, Leg Amputation Surg, A mputation What to Expect After, Adjusting to Limb Loss, Preventing Surgical Site Infections Print Language: Armenian Stand Alone Forms: [employer] Award Info., Patient Portal Info Letter Discharge Order Discharge Orders: Discharge (Routine); Ordered 10/05/25 Ordered By: Arlene Street Quality Discharge Quality Measures VTE prophylaxis MD Attestestation MD Attestation I have examined the patient, reviewed labs and imaging findings, discussed the case with the resident(s), and reviewed entered orders. I agree with the plan of care as outlined in this note. Time Spent: [address] Yazmin MD
--- NOTE | 2025-10-05 15:44 | PC.NURSE ---
Discharge pending the return of patient's for instruction and transportation home.
--- NOTE | 2025-10-06 11:18 | PC.CC ---
Patient referred to Home Health with [facility] 10/09/25.
== END 2025-10-05 16:00 | disposition home health service (06) | DRG 305 ==
LOC: SERX 16:42 → SERHOLD 16:50 → S3NX 20:49
PROVIDERS: Nurse Practitioner Family; Surgery; Admitting Provider Internal Medicine; Emergency Provider Emergency Medicine; Visit Provider Student in an Organized Health Care Education/Training Program
PROC: 0Y6J0Z3 Detachment at Left Lower Leg, Low, Open Approach (ICD-10-PCS; CPT 27880; principal; 2025-10-02 17:30)
DX: E11.69 Type 2 diabetes mellitus with other specified complication (principal); M86.8X7 Other osteomyelitis, ankle and foot; L03.116 Cellulitis of left lower limb; E11.65 Type 2 diabetes mellitus with hyperglycemia; E11.42 Type 2 diabetes mellitus with diabetic polyneuropathy; I10 Essential (primary) hypertension; E78.5 Hyperlipidemia, unspecified; D62 Acute posthemorrhagic anemia; T80.89XA Other complications following infusion, transfusion and therapeutic injection, initial encounter; R07.89 Other chest pain; Z87.891 Personal history of nicotine dependence; Z91.148 Patient's other noncompliance with medication regimen for other reason; Z91.119 Patient's noncompliance with dietary regimen due to unspecified reason; Z79.4 Long term (current) use of insulin; Z79.84 Long term (current) use of oral hypoglycemic drugs; Z79.899 Other long term (current) drug therapy; Z79.82 Long term (current) use of aspirin; Y84.8 Other medical procedures as the cause of abnormal reaction of the patient, or of later complication, without mention of misadventure at the time of the procedure; Y92.230 Patient room in hospital as the place of occurrence of the external cause
CPT/HCPCS: 36415; 71045; 80053; 80061; 80202; 83036; 84484; 85014; 85018; 85025; 85610; 85730; 86850; 86900; 86901; 86923; 87040; 87081; 93005; 97161; 99282; A4649; J0131; J0690; J0696; J1100; J1171; J1815; J2270; J2371; J2405; J2470; J2543; J2704; J3010; J3373; J3490; P9016; P9047; A9270

== ENCOUNTER 2025-10-10 22:47 | Emergency (ER) | payer MEDICAID, SELFPAY ==
[2025-10-10 22:48] VITALS: BP 138/87; PULSE 107; RESP 18; TEMP 36.8; O2SAT 96
--- NOTE | 2025-10-10 22:49 | EDNOTE_ITS ---
ED Fall Injury RME/HPI General Chief Complaint: Wound/Laceration Stated Complaint: FALL Time Seen by Provider: 10/10/25 22:49 Arrival date/time: 10/10/25 22:47 RME / HPI RME / HPI Narrative: Dr. Pritchard?s Main ED Evaluation: 40yo male with a history of DM, HTN, recent left BKA on 10/02/[address] Lottie BIRCH from home presents to the ED for a fall. Patient slipped and fell, landing on his left stump. Denies any head strikes or loss of consciousness. Denies any other injuries. NKA. Related Data Home Medications ?Medication ?Instructions ?Recorded ?Confirmed lisinopril 5 mg tablet 20 mg PO DAILY 09/22/2409/23 metformin 500 mg tablet 1,000 mg PO BID 09/22/2409/16 insulin lispro 100 unit/mL 1 sliding scale dose subcut AC 10/02/25 10/02/25 subcutaneous pen Previous Rx's ?Medication ?Instructions ?Recorded flash glucose scanning reader #1 ea 09/24/24 (FreeStyle Courtney 2 [place]) flash glucose sensor (FreeStyle #1 ea 09/24/24 Courtney 2 Sensor kit) insulin glargine 100 unit/mL 65 unit (0.65 mL) SCi QDA Y #10 mL 09/29/24 subcutaneous solution (Lantus U-100 Insulin) aspirin 81 mg tablet,delayed 81 mg PO QDAY 1 month #30 tabs 09/21/25 release atorvastatin 40 mg tablet (Lipitor) 40 mg PO HS 1 jamil h #30 tabs 09/21/25 hydrocodone 5 mg-acetaminophen 325 1 tab PO Q8H PRN pa in (scale score 10/05/ mg tablet 7-10) 1 week #20 tabs oxycodone-acetaminophen 5 mg-325 1 tab PO Q4H PRN pain #30 tabs 1117/25 mg tablet (Percocet) Allergies Allergy/AdvReac Type Severity Reaction Status Date / Time No Known Allergies Allergy Verified 10/02/25 14:30 Review of Systems Review of Systems Systems Reviewed: All systems reviewed, normal except as documented ED Exam Narrative Physical exam: The stapled wound to the left lower extremity below the knee amputation stump site are intact. There is mild subcutaneous soft tissue hematoma. No warmth around the staple site. No discharge. There is no dehiscence of the wound. Skin is cool pale and dry, heart regular rate and rhythm, lungs clear to auscultation equal bilaterally, abdomen is obese soft nondistended nontender Course Quality Measures none Orders Category Date Time Status XR tibia fibula LT 2V Stat Exams 10/10/25 22:49 Taken Vital Signs Vital signs: Vital Signs Temperature 98.3 F 10/10/25 22:48 Pulse Rate 107 H 10/10/25 22:48 Respiratory Rate 18 10/10/25 22:48 Blood Pressure 138/87 H 10/10/25 22:48 Pulse Oximetry (%) 96 10/10/25 22:48 Oxygen Delivery Method Room Air 10/10/25 22:48 Fall MDM Narrative MDM Narrative:: Scribe Attestation: 10/10/25 - Medina Haynes am scribing for and in the presence of Dr. Pritchard. There is no dehiscence of the wound. X-ray of the left tibia and fibula's showed the proximal fibula and tibia to be intact without fracture. Patient stable for discharge home. Patient data External records reviewed:: [facility] previous records and EMS form Clinical information provided by:: patient Social determinants that could affect healthcare access:: none Patient has the following chronic illnesses:: DM, HTN How is presenting disease/condition affected by chronic disease/condition?: uneffected by Evaluation data The following diagnostics were reviewed and interpreted by me:: radiology exam(s) Lab and/or radiology exams considered but not ordered:: none Interpretation Summary: See [facility] Medications / Prescriptions Medications or Prescriptions considered but not ordered:: none Medication administrations:: none Consultations Consultation(s) initiated? (list below): No Diagnosis Fall Differential Diagnosis: other (See MDM) Most likely diagnosis given after review of the tests above:: see clinical impression below Admission Indicated Admission indicated?: not indicated Admission Request Was there a request for admission?: No Disposition Plan Disposition Plan: Discharge Discharge Attestation Discharge Attestation: The patient and all family members were given an opportunity to ask questions and understood the discharge instructions. Discharge instructions specifically effects, indications for sooner follow up or return to the emergency department, and the expected course of current diagnosis. Patient condition: Stable Discharge Plan Plan Patient Disposition: HOME (Self Care) Prescriptions/Referrals Prescriptions/Med Rec: No Action oxycodone-acetaminophen [Percocet] 5-325 mg tablet 1 tab PO Q4H MDD 6 tabs PRN (Reason: pain) Qty: 30 0RF Rx Instructions: Take 1 tablet as needed every 4-6 hours for moderate to severe pain metformin 500 mg tablet 1,000 mg PO BID Patient Comments: TAKE ONE TABLET BY MOUTH THREE TIMES DAILY WITH MEALS lisinopril 5 mg tablet 20 mg PO DAILY Patient Comments: TAKE ONE TABLET BY MOUTH DAILY (DME) FreeStyle Courtney 2 [place] Misc See Rx Instructions .Route Qty: 1 0RF Rx Instructions: As directed (DME) FreeStyle Courtney 2 Sensor Kit See Rx Instructions .Route Qty: 1 0RF Rx Instructions: As directed insulin glargine [Lantus U-100 Insulin] 100 unit/mL Solution 65 unit SCi QDAY Qty: 10 4RF aspirin 81 mg Tablet,Delayed Release (Dr/Ec) 81 mg PO QDAY 30 Days Qty: 30 0RF atorvastatin [Lipitor] 40 mg tablet 40 mg PO HS 30 Days Qty: 30 0RF insulin lispro 100 unit/mL insulin pen 1 sliding scale dose SUBCUT AC Patient Comments: INJECT FIVE UNITS SUBCUTANEOUSLY THREE TIMES DAILY WITH meals FOR DIABETES hydrocodone-acetaminophen 5-325 mg tablet 1 tab PO Q8H MDD 15 mg-975 mg PRN (Reason: pain (scale score 7-10)) 7 Days Qty: 20 0RF Referrals: Damon Ortega FNP [Primary Care Provider] - In 1 week Problem List Clinical Impression: Fall, Below-knee amputation of left lower extremity Patient/Caregiver Discharge Instructions Additional Instructions: Continue current home management. Keep your follow-up appointments. Print Language: Luxembourgish Stand Alone Forms: Wendy Award Info., Patient Portal Info Letter
--- NOTE | 2025-10-10 22:49 | XR_ITS ---
EXAMINATION: Left tibia fibula 2 views TECHNIQUE: Left tibia fibula AP lateral 2 views Date and time: October 10, 2025, 11:02 p.m. INDICATIONS: Patient fell today with injury to the tibia-fibula, pain FINDINGS: Recent below the knee amputation Surgical sheldon and closure sheldon No acute fracture No dislocation IMPRESSION: No acute fracture
[2025-10-10 22:50] VITALS: PULSE 88; RESP 16; O2SAT 98
[2025-10-10 23:35] VITALS: BP 118/76; PULSE 73; RESP 16; TEMP 36.8; O2SAT 98
== END 2025-10-10 23:42 | disposition home or self-care (01) ==
PROVIDERS: Emergency Provider Emergency Medicine
DX: S89.92XA Unspecified injury of left lower leg, initial encounter (principal); W01.0XXA Fall on same level from slipping, tripping and stumbling without subsequent striking against object, initial encounter; E11.9 Type 2 diabetes mellitus without complications; I10 Essential (primary) hypertension; Z79.82 Long term (current) use of aspirin; Z79.84 Long term (current) use of oral hypoglycemic drugs; Z89.512 Acquired absence of left leg below knee
CPT/HCPCS: 73590; 99282

== ENCOUNTER → 2025-10-18 | Outpatient (CLI) | payer MEDICAID, SELFPAY | END | disposition home or self-care (01) | LOC: SWHD 09:26 | PROVIDERS: PCP Family Medicine; Referring Provider Family Medicine; Visit Provider Student in an Organized Health Care Education/Training Program | DX: E11.621 Type 2 diabetes mellitus with foot ulcer (principal); L97.412 Non-pressure chronic ulcer of right heel and midfoot with fat layer exposed; J45.909 Unspecified asthma, uncomplicated; Z79.84 Long term (current) use of oral hypoglycemic drugs; F41.9 Anxiety disorder, unspecified | CPT/HCPCS: 97597; A9270 ==

== ENCOUNTER 2025-10-23 13:28 | Outpatient (AMB) | payer MEDICAID, SELFPAY ==
[2025-10-23 13:43] VITALS: BP 146/90; PULSE 99; RESP 18; TEMP 36.4; O2SAT 98; BMI 30.9
--- NOTE | 2025-10-23 13:43 | GSCOFFNT_ITS ---
Vital Signs - [facility] 10/23/25 13:43 Height 1.88 m Height Method Measured Weight 109.316 kg Weight Measurement Method Estimated by Patient BMI 30.9 BP 146/90 H Blood Pressure Source Automatic Cuff Blood Pressure Location Left Upper Arm Position Sitting Respiration 18 Pulse 99 Pulse Source Monitor Temp 97.5 F Temp Source Temporal Artery Scan Pulse Oximetry (%) 98 Oxygen Delivery Method Room Air Med/Allergies Allergies & Medications Allergies No Known Allergies Allergy (Verified 10/23/25 13:45) Medication Reconciliation lisinopril 5 mg tablet 20 mg PO DAILY 09/22/24 [History Confirmed 10/23/25] metformin 500 mg tablet 1,000 mg PO BID 09/22/24 [History Confirmed 10/23/25] flash glucose scanning reader (DotAlignStyle Courtney 2 [place]) #1 ea 09/24/24 [Rx Confirmed 10/23/25] flash glucose sensor (FreeStyle Courtney 2 Sensor kit) #1 ea 09/24/24 [Rx Confirmed 10/23/25] insulin glargine 100 unit/mL subcutaneous solution (Lantus U-100 Insulin) 65 unit (0.65 mL) SCi QDAY #10 mL 09/29/24 [Rx Confirmed 10/23/25] insulin lispro 100 unit/mL subcutaneous pen 1 sliding scale dose subcut AC 10/02/25 [History Confirmed 10/23/25] oxycodone-acetaminophen 5 mg-325 mg tablet (Percocet) 1 tab PO Q4H PRN pain #30 tabs 10/09/25 [Rx Confirmed 10/23/25] oxycodone-acetaminophen 7.5 mg-325 mg tablet (Percocet) 1 tab PO Q6H PRN pain #30 tabs 10/12/25 [Rx Confirmed 10/23/25] MA Intake Visit Data Collection New Patient or Established: Established Patient (seen at [facility] within 3 years) Seen by Clinical Staff ONLY (RN/MA): No Reason for Visit:: STAPLE REMOVAL Pain Present Currently: Yes Pain scale:: 6 Pain Scale Used: RussDonavanTorres/Numerical Play Therapist Required: No PCP or OBGYN visit in last 3 months: Yes Hx Now: No Do You Feel Safe at Home: Yes Authorities Contacted: N/A Smoking Status Smoking Status: Former smoker Immunization / Flu Flu Vaccine in the Last 12 Months: Yes Flu Vaccine Exclusion Criteria: Already Received Past Medical History Past Medical History NEUROLOGIC: Negative Seizures CARDIAC: Positive Hypercholesterolemia and Hypertension; Negative Cardiac Disorders or Congestive Heart Failure RESPIRATORY: Negative Chronic Obstructive Pulmonary Disease (COPD) or Asthma GENITOURINARY: Negative Renal Disease ENDOCRINE: Positive Diabetes Mellitus Type 2; Negative Diabetes Mellitus Type 1 HEMATOLOGIC: Negative Sickle Cell Disease PSYCHO/SOCIAL: Positive Anxiety OTHER HISTORY: Positive Falls; Negative Hospitalization, Blood Transfusions or Anesthesia Reactions Family History FAMILY HISTORY: Negative Family Cardiac Disorders Social History SMOKING STATUS: Smoking status: Former smoker SECOND HAND EXPOSURE: second hand exposure: No ALCOHOL: Alcohol Intake: Never HOUSING: Housing: House LIVES WITH: Lives With: Family and Spouse HPI HPI Narrative 40M with DM2, left foot abscess and osteomyelitis s/p L BKA on 10/02, here for planned follow-up. Patient reports feeling well overall, his pain is more manageable as of late and he has been working with physical therapy. He has noted swelling of the left thigh but this has overall improved. He states his blood sugars have been 100s to 200s at home. He had a fall on POD 8 which he says happened because he had forgotten about his amputation, he sought care in ER but did not require inpatient admission ROS Review of Systems Systems Reviewed: All systems reviewed, normal except as documented Objective/Exam General General Appearance: alert, cooperative and well groomed Resp Respiratory exam: Absent respiratory distress Extremities Extremities exam: Present other (L BKA incision c/d/i with no erythema, there is minimal serous drainage from the medial aspect though no dehiscence) Assessment & Plan Diagnosis / Problem List (1) Foot osteomyelitis, left: Status: Acute Assessment & Plan: 40M with DMII, left foot abscess with osteomyelitis s/p L BKA 10/02, recovering well, sheldon removed today Plan: Follow up in 3 weeks Office Procedures GNS Level of Care Nursing/Assessment Patient Status: Established Patient Nursing Assessment/Reassesment: Medication Reconciliation, Update PMH in EMR and Vital Signs Coordination of Care: Complex Care and Chronic Disease 1-5, Education Complex Pt/Fam, Consent,records obtained, informed consent, Results/Orders obtained and Staff clarify orders Established Patient Charge Established Patient Point Assignment: 95 Established Patient Point Charge: EP Level 3 (80-115) Patient Portal Questionaires Social History Living Situation History Housing: House Tobacco History Smoking Status: Former smoker Second Hand Smoke Exposure: No Alcohol History Alcohol Intake: Never Domestic Abuse History Do You Feel Safe at Home: Yes Review of Systems Report any current symptoms Only answer those that you have currently: Past Medical History Past Medical History Have you ever been diagnosed with any of the following: Neurological Problems Seizures: No Cardiology Problems Hypercholesterolemia: Yes Congestive Heart Failure: No Hypertension: Yes Respiratory Problems Chronic Obstructive Pulmonary Disease (COPD): No Asthma: No Genital/Urinary Problems Renal Disease: No Endocrine Problems Diabetes Mellitus Type 1: No Diabetes Mellitus Type 2: Yes Blood Problems Sickle Cell Disease: No Psychologic Problems Anxiety: Yes Other Problems Hospitalization: No Falls: Yes Blood Transfusions: No Anesthesia Reactions: No
== END 2025-10-23 14:07 | disposition home or self-care (01) ==
LOC: HODSRG 13:28
PROVIDERS: Supervising Provider Surgery; Visit Provider Surgery
DX: E11.69 Type 2 diabetes mellitus with other specified complication (principal); M86.8X7 Other osteomyelitis, ankle and foot
CPT/HCPCS: 99213; G0463

== ENCOUNTER → 2025-10-26 | Outpatient (CLI) | payer MEDICAID, SELFPAY | END | disposition home or self-care (01) | LOC: SWHD 09:34 | PROVIDERS: PCP Family Medicine; Referring Provider Family Medicine; Visit Provider Student in an Organized Health Care Education/Training Program | DX: E11.621 Type 2 diabetes mellitus with foot ulcer (principal); L97.412 Non-pressure chronic ulcer of right heel and midfoot with fat layer exposed; J45.909 Unspecified asthma, uncomplicated; Z79.84 Long term (current) use of oral hypoglycemic drugs; F41.9 Anxiety disorder, unspecified | CPT/HCPCS: 97597; A9270 ==

== ENCOUNTER 2025-11-06 08:45 | Outpatient (AMB) | payer MEDICAID, SELFPAY ==
--- NOTE | 2025-11-06 09:10 | PD.GSCLVISIT ---
Vital Signs - [facility] 11/06/25 09:11 Height 1.88 m Height Method Stated Weight 109 kg Weight Measurement Method Estimated by Patient BMI 30.8 BP 132/89 H Blood Pressure Source Automatic Cuff Blood Pressure Location Left Upper Arm Position Sitting Respiration 18 Pulse 103 H Pulse Source Monitor Temp 97.1 F Temp Source Temporal Artery Scan Pulse Oximetry (%) 98 Oxygen Delivery Method Room Air Med/Allergies Allergies & Medications Allergies No Known Allergies Allergy (Verified 11/06/25 09:14) Medication Reconciliation lisinopril 5 mg tablet 20 mg PO DAILY 09/22/24 [History Confirmed 11/06/25] metformin 500 mg tablet 1,000 mg PO BID 09/22/24 [History Confirmed 11/06/25] flash glucose scanning reader ([employer] Courtney 2 Lindsay) #1 ea 09/24/24 [Rx Confirmed 11/06/25] flash glucose sensor ([employer] Courtney 2 Sensor kit) #1 ea 09/24/24 [Rx Confirmed 11/06/25] insulin glargine 100 unit/mL subcutaneous solution (Lantus U-100 Insulin) 65 unit (0.65 mL) SCi QDAY #10 mL 09/29/24 [Rx Confirmed 11/06/25] insulin lispro 100 unit/mL subcutaneous pen 1 sliding scale dose subcut AC 10/02/25 [History Confirmed 11/06/25] oxycodone-acetaminophen 5 mg-325 mg tablet (Percocet) 1 tab PO Q4H PRN pain #30 tabs 10/09/25 [Rx Confirmed 11/06/25] oxycodone-acetaminophen 7.5 mg-325 mg tablet (Percocet) 1 tab PO Q6H PRN pain #30 tabs 10/12/25 [Rx Confirmed 11/06/25] bacitracin zinc 500 unit/gram topical ointment (Antibiotic (bacitracin zinc)) 1 applic topical BID #14 grams 10/30/25 [Rx Confirmed 11/06/25] pregabalin 50 mg capsule (Lyrica) 50 mg PO TID neuropathic pain #90 caps 10/30/25 [Rx Confirmed 11/06/25] oxycodone-acetaminophen 5 mg-325 mg tablet (Percocet) 1 tab PO Q4H PRN pain #60 tabs 12/15/25 [Rx] MA Intake Visit Data Collection New Patient or Established: Established Patient (seen at [facility] within 3 years) Seen by Clinical Staff ONLY (RN/MA): No Reason for Visit:: F/U WOUND DRAINING Pain Present Currently: Yes Pain scale:: 5 Pain Scale Used: Russ-Torres/Numerical Technical Instructor Course Developer Required: No PCP or OBGYN visit in last 3 months: Yes Hx Now: No Do You Feel Safe at Home: Yes Authorities Contacted: N/A Smoking Status Smoking Status: Former smoker Immunization / Flu Flu Vaccine in the Last 12 Months: Yes Flu Vaccine Exclusion Criteria: Already Received Past Medical History Past Medical History NEUROLOGIC: Negative Seizures CARDIAC: Positive Hypercholesterolemia and Hypertension; Negative Cardiac Disorders or Congestive Heart Failure RESPIRATORY: Negative Chronic Obstructive Pulmonary Disease (COPD) or Asthma GENITOURINARY: Negative Renal Disease ENDOCRINE: Positive Diabetes Mellitus Type 2; Negative Diabetes Mellitus Type 1 HEMATOLOGIC: Negative Sickle Cell Disease PSYCHO/SOCIAL: Positive Anxiety OTHER HISTORY: Positive Falls; Negative Hospitalization, Blood Transfusions or Anesthesia Reactions Family History FAMILY HISTORY: Negative Family Cardiac Disorders Social History SMOKING STATUS: Smoking status: Former smoker SECOND HAND EXPOSURE: second hand exposure: No ALCOHOL: Alcohol Intake: Never HOUSING: Housing: House LIVES WITH: Lives With: Family and Spouse HPI HPI Narrative 40M with DMII, left foot abscess with osteomyelitis s/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 Since last visit pt has been seen at wound healing once, states he missed last appt because he was late but overall is doing well. He has noted some yellow drainage from different parts of the incision but denies any fever and states the redness is improving. He reports throbbing pain, I had prescribed lyrica recently (he declines gabapentin because it affects his sexual function) and he states the lyrica does not help, making it difficult for him to sleep at night Otherwise he is eating more healthfully with the help of his and his finger sticks have been in the low 100s ROS Review of Systems Systems Reviewed: All systems reviewed, normal except as documented Objective/Exam General General Appearance: alert, cooperative and well groomed Resp Respiratory exam: Absent respiratory distress Extremities Extremities exam: Present other (L BKA incision with two small draining areas, each of these were probed and there was minimal serosanguinous/sanguinous output, very mild erythema surrounding these openings, minimal tenderness) Assessment & Plan Diagnosis / Problem List (1) Foot osteomyelitis, left: Status: Acute Assessment & Plan: 40M with DMII, left foot abscess with osteomyelitis s/p L BKA 10/02, recovering well overall. The draining areas appear overall healthy, not requiring any further incision/drainage but do need to continue covering with gauze for now. All questions were answered and pt will continue to follow up with Wound Healing and with me in 4 weeks Office Procedures GNS Level of Care Nursing/Assessment Patient Status: Established Patient Nursing Assessment/Reassesment: Medication Reconciliation, Update PMH in EMR and Vital Signs Coordination of Care: Complex Care and Chronic Disease 1-5, Education Complex Pt/Fam, Consent,records obtained, informed consent, Results/Orders obtained and Staff clarify orders Established Patient Charge Established Patient Point Assignment: 95 Established Patient Point Charge: EP Level 3 (80-115) Patient Portal Questionaires Social History Living Situation History Housing: House Tobacco History Smoking Status: Former smoker Second Hand Smoke Exposure: No Alcohol History Alcohol Intake: Never Domestic Abuse History Do You Feel Safe at Home: Yes Review of Systems Report any current symptoms Only answer those that you have currently: Past Medical History Past Medical History Have you ever been diagnosed with any of the following: Neurological Problems Seizures: No Cardiology Problems Hypercholesterolemia: Yes Congestive Heart Failure: No Hypertension: Yes Respiratory Problems Chronic Obstructive Pulmonary Disease (COPD): No Asthma: No Genital/Urinary Problems Renal Disease: No Endocrine Problems Diabetes Mellitus Type 1: No Diabetes Mellitus Type 2: Yes Blood Problems Sickle Cell Disease: No Psychologic Problems Anxiety: Yes Other Problems Hospitalization: No Falls: Yes Blood Transfusions: No Anesthesia Reactions: No
[2025-11-06 09:11] VITALS: BP 132/89; PULSE 103; RESP 18; TEMP 36.2; O2SAT 98; BMI 30.8
== END 2025-11-06 09:34 | disposition home or self-care (01) ==
LOC: HODSRG 08:45
PROVIDERS: PCP Family Medicine; Referring Provider Family Medicine; Supervising Provider Surgery; Visit Provider Surgery
DX: E11.69 Type 2 diabetes mellitus with other specified complication (principal); M86.8X7 Other osteomyelitis, ankle and foot; Z89.512 Acquired absence of left leg below knee
CPT/HCPCS: 99213; G0463

== ENCOUNTER → 2025-11-14 | Outpatient (CLI) | payer MEDICAID, SELFPAY | END | disposition home or self-care (01) | LOC: SWHD 10:51 | PROVIDERS: PCP Family Medicine; Referring Provider Family Medicine; Visit Provider Surgery | DX: E11.621 Type 2 diabetes mellitus with foot ulcer (principal); L97.411 Non-pressure chronic ulcer of right heel and midfoot limited to breakdown of skin; S81.802A Unspecified open wound, left lower leg, initial encounter; X58.XXXA Exposure to other specified factors, initial encounter; J45.909 Unspecified asthma, uncomplicated; Z79.84 Long term (current) use of oral hypoglycemic drugs; F41.9 Anxiety disorder, unspecified; D64.9 Anemia, unspecified | CPT/HCPCS: 97597; A9270 ==

== ENCOUNTER → 2025-11-21 | Outpatient (CLI) | payer MEDICAID, SELFPAY | END | disposition home or self-care (01) | LOC: SWHD 11:24 | PROVIDERS: PCP Family Medicine; Referring Provider Family Medicine; Visit Provider Student in an Organized Health Care Education/Training Program | DX: E11.621 Type 2 diabetes mellitus with foot ulcer (principal); L97.412 Non-pressure chronic ulcer of right heel and midfoot with fat layer exposed; S81.802A Unspecified open wound, left lower leg, initial encounter; X58.XXXA Exposure to other specified factors, initial encounter; J45.909 Unspecified asthma, uncomplicated; Z79.84 Long term (current) use of oral hypoglycemic drugs; F41.9 Anxiety disorder, unspecified; D64.9 Anemia, unspecified | CPT/HCPCS: 11042; A9270 ==